=== PATIENT | male | born 1940 | race Caucasian/White ===

== ENCOUNTER 2016-07-26 10:17 | Inpatient (IN) | payer OTHER, MEDICARE ==
[2016-07-26] VITALS (13 sets, daily range): BP systolic 136–186; BP diastolic 63–106; PULSE 70–103; RESP 16–20; TEMP 97.6; O2SAT 72–96
[~2016-07-26] VITALS: Ht 165.1 cm; Wt 116.5 kg
[~2016-07-26 10:17] MED LIST: ENAL20TA81 PO; METO25 PO
--- NOTE | 2016-07-26 10:43 | PD ---
HPI Chief Complaint: Respiratory Symptoms Time Seen by Provider: 10:38 Travel History International Travel<30 days: No Contact w/Intl Traveler<30days: No Traveled to known affect area: No History of Present Illness HPI This 75-year-old male is complaining of dyspnea on exertion. He has been a smoker for many years. He denies any history of heart disease. He has had some swelling of his legs over the last few months. The last couple weeks he has had increasing dyspnea on exertion. He had a persistent cough which is nonproductive. He has a history of hypertension. He says the past week he's been having some chills at nighttime. PFSH Past Medical History Hypertension: Yes Social History Alcohol Use: Yes Tobacco Use: Yes Substance Use: Yes Allergies-Medications (Allergen,Severity, Reaction): Coded Allergies: No Known Allergies (Verified , 08/07/08) Reported Meds & Prescriptions Reported Meds & Active Scripts Active Lopressor (Metoprolol Tartrate) 25 Mg Tab 25 Mg PO DAILY 30 Days Reported Vasotec (Enalapril Maleate) 20 Mg Tab 20 Mg PO DAILY Review of Systems General / Constitutional: Positive: Chills, No: Fever Eyes: No: Diploplia HENT: No: Headaches Cardiovascular: Positive: Edema, No: Chest Pain or Discomfort, Palpitations Respiratory: Positive: Cough, Shortness of Breath Gastrointestinal: No: Vomiting, Diarrhea Genitourinary: No: Dysuria Musculoskeletal: No: Myalgias, Arthralgias Skin: No Rash Physical Exam Narrative GENERAL: Well-developed male. His pulse ox on arrival was 72 SKIN: Warm and dry. HEAD: Atraumatic. Normocephalic. EYES: Pupils equal and round. No scleral icterus. No injection or drainage. ENT: No nasal bleeding or discharge. Mucous membranes pink and moist. NECK: Trachea midline. No JVD. CARDIOVASCULAR: Regular rate and rhythm. No murmur appreciated. RESPIRATORY: There is bilateral expiratory wheezing anteriorly. Breath sounds are diminished posteriorly GASTROINTESTINAL: Abdomen soft, non-tender, nondistended. Hepatic and splenic margins not palpable. MUSCULOSKELETAL: No obvious deformities. No clubbing. No cyanosis. Bilateral pedal edema NEUROLOGICAL: Awake and alert. No obvious cranial nerve deficits. Motor grossly within normal limits. Normal speech. PSYCHIATRIC: Appropriate mood and affect; insight and judgment normal. Data Data Last Documented VS Vital Signs Date Time Temp Pulse Resp B/P Pulse Ox O2 Delivery O2 Flow Rate FiO2 07/26/16 10:49 95 Nasal Cannula 3.50 07/26/16 10:41 97.6 103 19 186/106 Orders Complete Blood Count With Diff (07/26/16 10:38) Comprehensive Metabolic Panel (07/26/16 10:38) B-Type Natriuretic Peptide (07/26/16 10:38) Troponin I (07/26/16 10:38) Urinalysis - C+S If Indicated (07/26/16 10:38) Influenzae A/B Antigen (07/26/16 10:38) Blood Culture (07/26/16 10:38) Iv Access Insert/Monitor (07/26/16 10:38) Electrocardiogram (07/26/16 10:38) Ecg Monitoring (07/26/16 10:38) Oximetry (07/26/16 10:38) Oxygen Administration (07/26/16 10:38) Chest, Single Ap (07/26/16 10:38) Sodium Chloride 0.9% Flush (Ns Flush) (07/26/16 10:45) Methylprednisolone So Succ Inj (Solumedr (07/26/16 10:45) Albuterol-Ipratropium Neb (Duoneb Neb) (07/26/16 10:45) Furosemide Inj (Lasix Inj) (07/26/16 11:15) Potassium Chloride (Kcl) (07/26/16 11:15) Admit Order (Ed Use Only) (07/26/16 11:48) Labs Laboratory Tests Test 07/26/16 10:36 White Blood Count 11.2 TH/MM3 Red Blood Count 5.08 MIL/MM3 Hemoglobin 15.8 GM/DL Hematocrit 48.3 % Mean Corpuscular Volume 95.1 FL Mean Corpuscular Hemoglobin 31.1 PG Mean Corpuscular Hemoglobin 32.8 % Concent Red Cell Distribution Width 15.8 % Platelet Count 251 TH/MM3 Mean Platelet Volume 8.7 FL Neutrophils (%) (Auto) 83.4 % Lymphocytes (%) (Auto) 5.8 % Monocytes (%) (Auto) 8.0 % Eosinophils (%) (Auto) 0.5 % Basophils (%) (Auto) 2.3 % Neutrophils # (Auto) 9.2 TH/MM3 Lymphocytes # (Auto) 0.7 TH/MM3 Monocytes # (Auto) 0.9 TH/MM3 Eosinophils # (Auto) 0.1 TH/MM3 Basophils # (Auto) 0.3 TH/MM3 CBC Comment DIFF FINAL Differential Comment Sodium Level 145 MEQ/L Potassium Level 3.7 MEQ/L Chloride Level 106 MEQ/L Carbon Dioxide Level 31.9 MEQ/L Anion Gap 7 MEQ/L Blood Urea Nitrogen 27 MG/DL Creatinine 1.50 MG/DL Estimat Glomerular Filtration 45 ML/MIN Rate Random Glucose 106 MG/DL Calcium Level 8.2 MG/DL Total Bilirubin 0.8 MG/DL Aspartate Amino Transf 20 U/L (AST/SGOT) Alanine Aminotransferase 21 U/L (ALT/SGPT) Alkaline Phosphatase 168 U/L Troponin I 0.13 NG/ML B-Type Natriuretic Peptide 477 PG/ML Total Protein 7.0 GM/DL Albumin 2.7 GM/DL [facility] Medical Decision Making Medical Screen Exam Complete: Yes Emergency Medical Condition: Yes Medical Record Reviewed: Yes Differential Diagnosis Differential includes COPD, CHF, pneumonia Narrative Course Chest x-ray shows enlarged heart with bilateral interstitial infiltrates consistent with CHF. His BNP is 477. Troponin is 0.13. EKG shows sinus arrhythmia. Patient on repeat questioning denies any chest pain. I suspect the elevation in troponin might be due to his renal insufficiency. He has been given Lasix and also treated for COPD. Diagnosis Primary Impression: Congestive heart failure Qualified Code: I50.9 - Acute congestive heart failure, unspecified congestive heart failure type Additional Impression: Hypoxia Admitting Information Admitting Physician Requests: Admit Ángel Wilson MD Jul 26, 2016 10:43
[2016-07-26] MEDS ORDERED: methylPREDNISolone SOD SUCC 125 MG/2 ML VIAL IVP ONE (10:45)
[2016-07-26] MEDS ORDERED: SODIUM CHLORIDE 0.9% FLUSH 5 ML FLUSH IVF PRN ×2 (10:45→12:30)
[2016-07-26] MEDS: RESP: ALBUTEROL 2.5 MG/IPRATROPIUM 0.5 MG NEB (SCH) INH (10:48)
[2016-07-26 11:00] LABS: AUTOMATED NEUTROPHIL # 9.2 TH/MM3 (1.8-7.7); BASOPHIL # 0.3 TH/MM3 (0-0.2); BASOPHIL % 2.3 % (0.0-2.0); CHLORIDE 106 MEQ/L (98-107); EOSINOPHIL # 0.1 TH/MM3 (0-0.4); EOSINOPHIL % 0.5 % (0.0-4.0); HEMATOCRIT 48.3 % (39.0-51.0); LYMPH % 5.8 % (9.0-44.0); LYMPHOCYTE # 0.7 TH/MM3 (1.0-4.8); MEAN CELL VOLUME 95.1 FL (80.0-100.0); MEAN CORPUSCULAR HEMOGLOBIN 31.1 PG (27.0-34.0); MEAN CORPUSCULAR HGB CONC 32.8 % (32.0-36.0); NEUT % 83.4 % (16.0-70.0); PLATELET COUNT 251 TH/MM3 (150-450); POTASSIUM 3.7 MEQ/L (3.5-5.1); RED BLOOD COUNT 5.08 MIL/MM3 (4.50-5.90); RED CELL DISTRIBUTION WIDTH 15.8 % (11.6-17.2); SODIUM (NA) 145 MEQ/L (136-145); WHITE BLOOD COUNT 11.2 TH/MM3 (4.0-11.0)
[2016-07-26 11:01] LABS: HEMO FLAGS DIFF FINAL
[2016-07-26 11:04] LABS: ANION GAP 7 MEQ/L (5-15); BICARBONATE 31.9 MEQ/L (21.0-32.0); BLOOD UREA NITROGEN 27 MG/DL (7-18)
[2016-07-26 11:07] LABS: ALT (GPT) 21 U/L (12-78); AST (GOT) 20 U/L (15-37)
[2016-07-26 11:08] LABS: GLOMERULAR FILTRATION RATE 45 ML/MIN (>89)
[2016-07-26 11:09] LABS: TOTAL BILIRUBIN ADULT 0.8 MG/DL (0.2-1.0)
[2016-07-26 11:10] LABS: ALKALINE PHOSPHATASE 168 U/L (45-117)
[2016-07-26] MEDS ORDERED: POTASSIUM CHLORIDE 20 MEQ CONTROLLED RELEASE TAB PO ONE (11:15)
[2016-07-26] MEDS ORDERED: FUROSEMIDE 40 MG/4 ML VIAL IV PUSH ONE (11:15)
--- NOTE | 2016-07-26 11:15 | RADHPO ---
EXAM DATE/TIME: 07/26/2016 11:00 [place] COMPARISON: No previous studies available for comparison. INDICATIONS : Short of breath and low O2 saturations. MEDICAL HISTORY : Hypertension. SURGICAL HISTORY : None. ENCOUNTER: Initial ACUITY: 3 days PAIN SCORE: 2/10 LOCATION: Bilateral chest FINDINGS: The heart size is enlarged. There is abnormal nodularity involving the right hilum. The lungs are significant for bilateral hazy basilar airspace densities. Pulmonary vasculature appear s prominent. CONCLUSION: Findings may represent congestive heart failure pulmonary edema with enlargement of t he pulmonary vessels. No prior exams are available for review. Consider further evaluation with CT to exclude hilar adenopathy. Cindi Mustafa MD on July 26, 2016 at 11:07 Board Certified Radiologist. This report was verified electronically.
[2016-07-26 12:07] LABS: BLOOD, URINE LARGE (NEG); GLUCOSE,URINE NEG (NEG); KETONE, URINE NEG (NEG); NITRITE,URINE NEG (NEG); PH, URINE 5.5 (5.0-8.5)
[2016-07-26 12:22] LABS: METHOD OF COLLECTION CLEAN CATCH; URINE COLOR YELLOW (YELLW/STRAW)
[2016-07-26 12:23] LABS: COMMENT (UR) CULT NOT INDICATED; CULTURE IF INDICATED CULT NOT INDICATED; SQUAMOUS EPITHELIAL CELL URINE 0-5 /hpf (0-5)
[2016-07-26] MEDS ORDERED: ENAL20TA PO (12:31)
[2016-07-26] MEDS ORDERED: RESP: ALBUTEROL 2.5 MG/IPRATROPIUM 0.5 MG NEB (PRN) NEB (14:30)
--- NOTE | 2016-07-26 14:30 | HHI.HP ---
cc: Fausto Grace MD [facility] Fausto Grace MD Admission Diagnosis CHF, HYPOXIA Diagnoses: Chief Complaint: hypoxemia Travel History International Travel<30 Days: No Contact w/Intl Traveler <30 Da: No Traveled to Known Affected Are: No History of Present Illness Patient's 75-year-old gentleman with a history of hypertension. He did note that his blood pressure had been up lately and he saw his primary care doctor today who promptly sent him to the emergency room for further evaluation of hypoxemia. Patient has been admitted all high 80s low 90s on room air and has progressively become more dyspneic. He only has a history of hypertension and has been taking lisinopril. He admits increasing lower extremity swelling over the last several weeks with increasing shortness of breath and dyspnea on exertion. He has orthopnea. Patient notes no fevers or chills and denies chest pain. Patient does have elevated troponin on arrival and denies any cardiac symptoms acutely. Patient this time is admitted into the hospital for further evaluation. He has urinated quite a bit with a single dose of Lasix. He is somewhat better with some bronchodilation and was given steroids treatment.. He denies any further cardiac history other than hypertension. He' s never seen a carriage feeder. Review of Systems Constitutional: COMPLAINS OF: Weight gain Endocrine: DENIES: Heat/cold intolerance, Polydipsia, Polyuria, Polyphagia Eyes: DENIES: Blurred vision, Diplopia, Eye inflammation, Eye pain, Vision loss , Photosensitivity, Double Vision Ears, nose, mouth, throat: DENIES: Tinnitus, Hearing loss, Vertigo, Nasal discharge, Oral lesions, Throat pain, Hoarseness, Ear Pain, Running Nose, Epistaxis, Sinus Pain, Toothache, Odynophagia Cardiovascular: COMPLAINS OF: Dyspnea on Exertion, Lower Extremity Edema, Orthopnea, DENIES: Chest pain, Palpitations, Syncope, PND, Claudication Gastrointestinal: DENIES: Abdominal pain, Black stools, Bloody stools, Constipation, Diarrhea, Nausea, Vomiting, Difficulty Swallowing, Anorexia Genitourinary: DENIES: Sexual dysfunction, Urinary frequency, Urinary incontinence, Urgency, Hematuria, Dysuria, Nocturia, Penile Discharge, Testicular Pain, Testicular Swelling Musculoskeletal: DENIES: Joint pain, Muscle aches, Stiffness, Joint Swelling, Back pain, Neck pain Integumentary: DENIES: Abnormal pigmentation, Nail changes, Pruritus, Rash Hematologic/lymphatic: DENIES: Bruising, Lymphadenopathy Immunologic/allergic: DENIES: Eczema, Urticaria Neurologic: DENIES: Abnormal gait, Headache, Localized weakness, Paresthesias, Seizures, Speech Problems, Tremor, Poor Balance Psychiatric: DENIES: Anxiety, Confusion, Mood changes, Depression, Hallucinations, Agitation, Suicidal Ideation, Homicidal Ideation, Delusions Past Family Social History Past Medical History HTN Past Surgical History None Reported Medications Only BP med Allergies: Coded Allergies: No Known Allergies (Verified , 07/26/16) Active Ordered Medications Reviewed in the EMR Family History Mother from breast cancer in her 60s, father from a stroke in his 60s Social History Patient does smoke at least a pack per day, occasional alcohol, lives with his Physical Exam Vital Signs Vital Signs Date Time Temp Pulse Resp B/P Pulse Ox O2 Delivery O2 Flow Rate FiO2 07/26/16 13:48 90 6 07/26/16 13:47 98 18 182/79 88 Nasal Cannula 4 07/26/16 12:59 84 18 136/63 90 Nasal Cannula 4 07/26/16 10:49 95 Nasal Cannula 3.50 07/26/16 10:49 94 Nasal Cannula 4 07/26/16 10:41 97.6 103 19 186/106 72 07/26/16 10:35 94 Nasal Cannula 4 Physical Exam GENERAL: This is a well-nourished, well-developed patient, in no apparent distress. SKIN: No rashes, ecchymoses or lesions. Cool and dry. HEAD: Atraumatic. Normocephalic. No temporal or scalp tenderness. EYES: Pupils equal round and reactive. Extraocular motions intact. No scleral icterus. No injection or drainage. ENT: Nose without bleeding, purulent drainage or septal hematoma. Throat without erythema, tonsillar hypertrophy or exudate. Uvula midline. Airway patent. NECK: Trachea midline. No JVD or lymphadenopathy. Supple, nontender, no meningeal signs. CARDIOVASCULAR: Regular rate and rhythm without murmurs, gallops, or rubs. RESPIRATORY:crackles at bilat bases. Breath sounds equal bilaterally. No wheezes , rales, or rhonchi. GASTROINTESTINAL: Abdomen soft, non-tender, nondistended. No hepato-splenomegaly , or palpable masses. No guarding. MUSCULOSKELETAL: Extremities without clubbing, cyanosis, there is +3 leg edema. No joint tenderness, effusion, or edema noted. No calf tenderness. Negative Homans sign bilaterally. NEUROLOGICAL: Awake and alert. Cranial nerves II through XII intact. Motor and sensory grossly within normal limits. Five out of 5 muscle strength in all muscle groups. Normal speech. Laboratory Laboratory Tests Test 07/26/16 07/26/16 10:36 12:00 White Blood Count 11.2 Red Blood Count 5.08 Hemoglobin 15.8 Hematocrit 48.3 Mean Corpuscular Volume 95.1 Mean Corpuscular Hemoglobin 31.1 Mean Corpuscular Hemoglobin 32.8 Concent Red Cell Distribution Width 15.8 Platelet Count 251 Mean Platelet Volume 8.7 Neutrophils (%) (Auto) 83.4 Lymphocytes (%) (Auto) 5.8 Monocytes (%) (Auto) 8.0 Eosinophils (%) (Auto) 0.5 Basophils (%) (Auto) 2.3 Neutrophils # (Auto) 9.2 Lymphocytes # (Auto) 0.7 Monocytes # (Auto) 0.9 Eosinophils # (Auto) 0.1 Basophils # (Auto) 0.3 CBC Comment DIFF FINAL Differential Comment Sodium Level 145 Potassium Level 3.7 Chloride Level 106 Carbon Dioxide Level 31.9 Anion Gap 7 Blood Urea Nitrogen 27 Creatinine 1.50 Estimat Glomerular Filtration 45 Rate Random Glucose 106 Calcium Level 8.2 Total Bilirubin 0.8 Aspartate Amino Transf 20 (AST/SGOT) Alanine Aminotransferase 21 (ALT/SGPT) Alkaline Phosphatase 168 Troponin I 0.13 B-Type Natriuretic Peptide 477 Total Protein 7.0 Albumin 2.7 Urine Collection Type CLEAN CATCH Urine Color YELLOW Urine Turbidity CLEAR Urine pH 5.5 Urine Specific [place] 1.013 Urine Protein NEG Urine Glucose (UA) NEG Urine Ketones NEG Urine Occult Blood LARGE Urine Nitrite NEG Urine Bilirubin NEG Urine Leukocyte Esterase NEG Urine RBC 25-49 Urine WBC 3-5 Urine Squamous Epithelial 0-5 Cells Microscopic Urinalysis Comment CULT NOT INDICATED Urine Collection Time 12:00 Date/Time Procedure Status Source Growth 07/26/16 11:22 Aerobic Blood Culture Received Blood Peripheral Pending 07/26/16 11:22 Anaerobic Blood Culture Received Blood Peripheral Pending 07/26/16 10:20 Influenza Types A,B Antigen (JESS) - Final Complete Nasal Washing NEGATIVE FOR FLU A AND B ANTIGEN.... Result Diagram: 07/26/16 1036 07/26/16 1036 Imaging Last Impressions Chest X-Ray 07/26/16 1038 Signed Impressions: Service Date/Time: July 11:00 - CONCLUSION: Findings may represent congestive heart failure pulmonary edema with enlargement of the pulmonary vessels. No prior exams are available for review. Consider further evaluation with CT to exclude hilar adenopathy. Cindi Mustafa MD Assessment and Plan Problem List: (1) Congestive heart failure ICD Code: I50.9 Status: Acute Plan: New onset Cont ACEi, add BB Add LMWH (2) HTN (hypertension) ICD Code: I10 Status: Acute Plan: Uncontrolled, Cont Lisinopril and add Coreg Echo Pending (3) Hypoxia ICD Code: R09.02 Status: Acute Plan: Rule out COPD exacerbation Continue bronchodilators and steroids Continue to follow for blood gas and oxygenation Assessment and Plan LMWH Code Status Full Code Discussed Condition With Patient, ER MD and spouse Physician Certification 2 Midnight Certification Type: Admission for Inpatient Services Order for Inpatient Services The services are ordered in accordance with Medicare regulations or non- Medicare payer requirements, as applicable. In the case of services not specified as inpatient-only, they are appropriately provided as inpatient services in accordance with the 2-midnight benchmark. Estimated LOS (days): 3 3 days is the estimated time the patient will need to remain in the hospital, assuming treatment plan goals are met and no additional complications. Post-Hospital Plan: Home Problem Qualifiers (1) Congestive heart failure: Qualified Code: I50.9 - Acute congestive heart failure, unspecified congestive heart failure type Rocio Mai MD Jul 26, 2016 14:30
[2016-07-26 14:53] LABS: BLOOD GAS BASE EXCESS 6.4 mmol/L (-2-2); BLOOD GAS CARBOXYHEMOGLOBIN 5.7 % (0-4); BLOOD GAS HCO3 31 mmol/L (22-26); BLOOD GAS O2 HGB SATURATION 86 % (90-100); BLOOD GAS OXYGEN CONTENT 18.5 Vol % (12.0-20.0); BLOOD GAS PCO2 55 mmHG (38-42); BLOOD GAS PO2 69 mmHG (61-120); BLOOD GAS TOTAL HGB 15.3 G/DL (12.0-16.0); CRITICAL VALUE YES; TEMP CORR TO 98.6
[2016-07-26 14:54] LABS: DRAW SITE LT RADIAL; LITER FLOW 5.5 L/M; NUMBER OF ARTERIAL PUNCTURES 1; OXYGEN DEVICE NASAL CANNULA; STAT NO; ULNAR PULSE PRESENT
[2016-07-26] MEDS: CARVEDILOL 6.25 MG TAB PO SCH ×2 (15:53→21:00)
[2016-07-26] MEDS: NICOTINE 14 MG/24 HR PATCH TD SCH (15:53)
[2016-07-26] MEDS: ENOXAPARIN SODIUM 40 MG/0.4 ML SYRINGE SQ SCH (15:54)
[2016-07-26] MEDS: BUMETANIDE INJ 1 MG/4 ML VIAL IV PUSH SCH (17:58)
[2016-07-26] MEDS: RESP: ALBUTEROL 2.5 MG/IPRATROPIUM 0.5 MG NEB (SCH) NEB (19:17)
[2016-07-26] MEDS: methylPREDNISolone SOD SUCC 40 MG/1 ML VIAL IV PUSH SCH (21:30)
[2016-07-26] MEDS: SODIUM CHLORIDE 0.9% FLUSH 5 ML FLUSH IVF SCH (21:30)
[2016-07-27] VITALS (18 sets, daily range): BP systolic 112–158; BP diastolic 59–84; PULSE 71–86; RESP 15–24; TEMP 96.8–97.8; O2SAT 88–98
[2016-07-27 06:10] LABS: BLOOD GAS BASE EXCESS 6.2 mmol/L (-2-2); BLOOD GAS CARBOXYHEMOGLOBIN 3.3 % (0-4); BLOOD GAS HCO3 32 mmol/L (22-26); BLOOD GAS OXYGEN CONTENT 18.2 Vol % (12.0-20.0); BLOOD GAS PCO2 67 mmHG (38-42); BLOOD GAS PO2 68 mmHG (61-120); BLOOD GAS TOTAL HGB 14.8 G/DL (12.0-16.0); TEMP CORR TO 98.6
[2016-07-27 06:11] LABS: BLOOD GAS O2 HGB SATURATION 87 % (90-100); CRITICAL VALUE YES; DRAW SITE RT RADIAL; LITER FLOW 4 L/M; NUMBER OF ARTERIAL PUNCTURES 1; OXYGEN DEVICE NASAL CANNULA; STAT NO; ULNAR PULSE Y
[2016-07-27 06:15] LABS: CHLORIDE 105 MEQ/L (98-107); POTASSIUM 4.5 MEQ/L (3.5-5.1); SODIUM (NA) 144 MEQ/L (136-145)
[2016-07-27 06:18] LABS: ANION GAP 5 MEQ/L (5-15); BICARBONATE 34.1 MEQ/L (21.0-32.0); BLOOD UREA NITROGEN 28 MG/DL (7-18)
[2016-07-27 06:21] LABS: ALT (GPT) 17 U/L (12-78); AST (GOT) 10 U/L (15-37)
[2016-07-27 06:22] LABS: GLOMERULAR FILTRATION RATE 49 ML/MIN (>89)
[2016-07-27 06:23] LABS: TOTAL BILIRUBIN ADULT 0.6 MG/DL (0.2-1.0)
[2016-07-27 06:24] LABS: ALKALINE PHOSPHATASE 131 U/L (45-117)
[2016-07-27] MEDS: RESP: ALBUTEROL 2.5 MG/IPRATROPIUM 0.5 MG NEB (SCH) NEB ×3 (07:29→19:26)
[2016-07-27] MEDS: methylPREDNISolone SOD SUCC 40 MG/1 ML VIAL IV PUSH SCH ×2 (09:33→20:25)
[2016-07-27] MEDS: ENALAPRIL MALEATE 10 MG TAB PO SCH (09:33)
[2016-07-27] MEDS: CARVEDILOL 6.25 MG TAB PO SCH ×2 (09:34→20:24)
[2016-07-27] MEDS: NICOTINE 14 MG/24 HR PATCH TD SCH (09:35)
[2016-07-27] MEDS: BUMETANIDE INJ 1 MG/4 ML VIAL IV PUSH SCH ×2 (10:10→16:07)
[2016-07-27] MEDS: SODIUM CHLORIDE 0.9% FLUSH 5 ML FLUSH IVF SCH ×2 (10:10→20:25)
--- NOTE | 2016-07-27 12:49 | HHI.PR ---
Subjective Remarks Patient seen and evaluated today in follow-up for CHF and COPD exacerbation. Patient doing well on BiPAP clinically however he ABG shows significant CO2 retention and hypoxemia; this was on O2 nasal cannula Edema is better. Patient denies any shortness of breath or chest discomfort. Objective Vitals Vital Signs Date Time Temp Pulse Resp B/P Pulse Ox O2 Delivery O2 Flow Rate FiO2 07/27/16 12:00 96.8 74 24 153/84 94 07/27/16 11:00 70 16 147/70 98 Partial Rebreather 10 07/27/16 10:55 98 Partial Rebreather 10 07/27/16 10:15 78 18 94 Nasal Cannula 6 40 07/27/16 10:15 74 16 144/77 91 Nasal Cannula 7 07/27/16 10:06 94 Nasal Cannula 6 07/27/16 09:15 80 16 119/65 98 BiPAP 07/27/16 09:15 81 16 96 BiPAP 4 40 07/27/16 08:10 74 16 119/65 98 BiPAP 40 07/27/16 07:29 94 40 07/27/16 07:15 72 16 96 BiPAP 40 07/27/16 07:15 97.8 72 16 132/59 96 BiPAP 40 07/27/16 06:15 93 40 07/27/16 06:00 88 Nasal Cannula 4 07/27/16 05:05 Nasal Cannula 3 40 07/27/16 05:05 81 20 140/84 93 Nasal Cannula 3 07/27/16 03:00 94 Nasal Cannula 3.00 07/27/16 03:00 78 18 112/74 96 Nasal Cannula 3 07/27/16 01:20 96 40 07/27/16 01:07 BiPAP 6 45 07/27/16 01:07 74 15 158/69 96 BiPAP 07/26/16 22:05 94 45 07/26/16 22:00 81 17 161/90 95 BiPAP 07/26/16 20:56 78 16 141/72 96 BiPAP 45 07/26/16 20:56 96 BiPAP 45 07/26/16 19:16 95 45 07/26/16 19:15 96 BiPAP 45 07/26/16 19:05 76 16 143/77 95 BiPAP 45 07/26/16 17:17 70 20 155/74 92 BiPAP 07/26/16 16:04 94 40 07/26/16 16:02 94 18 180/94 90 07/26/16 15:11 95 Nasal Cannula 6 07/26/16 13:48 90 6 07/26/16 13:47 98 18 182/79 88 Nasal Cannula 4 07/26/16 12:59 84 18 136/63 90 Nasal Cannula 4 I/O 07/26/16 07/26/16 07/26/16 07/27/16 07/27/16 07/27/16 07:00 15:00 23:00 07:00 15:00 23:00 Intake Total 240 ml 240 ml Output Total 1175 ml 825 ml 250 ml 200 ml Balance -1175 ml -825 ml -10 ml 40 ml Intake Oral 240 ml 240 ml Output Urine Total 1175 ml 825 ml 250 ml 200 ml # Voids 3 2 Result Diagram: 07/26/16 1036 07/27/16 0600 Imaging Last Impressions Chest X-Ray 07/26/16 1038 Signed Impressions: Service Date/Time: July 11:00 - CONCLUSION: Findings may represent congestive heart failure pulmonary edema with enlargement of the pulmonary vessels. No prior exams are available for review. Consider further evaluation with CT to exclude hilar adenopathy. Cindi Mustafa MD Objective Remarks GENERAL: This is a well-nourished, well-developed patient, in no apparent distress. CARDIOVASCULAR: Regular rate and rhythm without murmurs, gallops, or rubs. RESPIRATORY: Clear to auscultation. Breath sounds equal bilaterally. No wheezes , rales, or rhonchi. GASTROINTESTINAL: Abdomen soft, non-tender, nondistended. Normal active bowel sounds MUSCULOSKELETAL: Extremities without clubbing, cyanosis, there is +1-2 edema in lower extremities NEURO: Alert & Oriented x4 to person, place, time, situation. Moves all ext x4 A/P Problem List: (1) Congestive heart failure ICD Code: I50.9 Status: Acute Plan: New onset Cont ACEi, BB 2250 mL out Follow-up echocardiogram LMWH (2) HTN (hypertension) ICD Code: I10 Status: Acute Plan: improved, Cont Lisinopril and add Coreg Echo Pending (3) Hypoxia ICD Code: R09.02 Status: Acute Plan: Rule out COPD exacerbation Continue bronchodilators and steroids Continue to follow for blood gas and oxygenation BiPap for CO2 retention Problem Qualifiers (1) Congestive heart failure: Qualified Code: I50.9 - Acute congestive heart failure, unspecified congestive heart failure type Rocio Mai MD Jul 27, 2016 12:49
--- NOTE | 2016-07-27 14:35 | EC ---
Study Study Date:07/27/2016 STUDY CONCLUSIONS SUMMARY - Left ventricle: The cavity size was normal. Wall thickness was increased in a pattern of moderate LVH. Systolic function was normal. The estimated ejection fraction was 55%. Wall motion was normal; there were no regional wall motion abnormalities. - Mitral valve: Mild regurgitation. - Left atrium: The atrium was mildly dilated. - Tricuspid valve: Mild regurgitation. - Pulmonary arteries: Systolic pressure was mildly increased. PA peak pressure: 46mm Hg (S). If LV function is below 40, please consider prescribing an ACEI or ARB or document rationale for non-use. PROCEDURE DATA STUDY STATUS: Elective. Procedure: Transthoracic echocardiography. Image quality was good. Scanning was performed from the parasternal, apical, and subcostal acoustic windows. Study completion: The patient tolerated the procedure well. Transthoracic echocardiography. M-mode, complete 2D, complete spectral Doppler, and color Doppler. Patient status: Inpatient. CARDIAC ANATOMY LEFT VENTRICLE: The cavity size was normal. Wall thickness was increased in a pattern of moderate LVH. Systolic function was normal. The estimated ejection fraction was 55%. Wall motion was normal; there were no regional wall motion abnormalities. AORTIC VALVE: Trileaflet; normal thickness leaflets. Doppler: Transvalvular velocity was within the normal range. There was no stenosis. No regurgitation. Valve area: 1.13cm^2(VTI). Valve area: 0.97cm^2 (Vmax). Mean gradient: 12mm Hg (S). Peak gradient: 22mm Hg (S). AORTA: Aortic root: The aortic root was normal in size. MITRAL VALVE: Structurally normal valve. Doppler: Transvalvular velocity was within the normal range. There was no evidence for stenosis. Mild regurgitation. LEFT ATRIUM: The atrium was mildly dilated. RIGHT VENTRICLE: The cavity size was normal. Wall thickness was normal. PULMONIC VALVE: Doppler: Transvalvular velocity was within the normal range. There was no evidence for stenosis. No regurgitation. TRICUSPID VALVE: Structurally normal valve. Doppler: Transvalvular velocity was within the normal range. Mild regurgitation. PULMONARY ARTERY: The main pulmonary artery was normal-sized. Systolic pressure was mildly increased. RIGHT ATRIUM: The atrium was normal in size. PERICARDIUM: There was no pericardial effusion. SYSTEMIC VEINS: Inferior vena cava: The vessel was normal in size. BASIC MEASUREMENTS ADULT Normal Left ventricle LV internal dimension, ED, chordal level, 45.5 mm 43-52 PLAX LV internal dimension, ES, chordal level, 35 mm 23-38 PLAX Fractional shortening, chordal level, PLAX *23 % >29 LV posterior wall thickness, ED 16.2 mm IVS/LVPW ratio, ED 1.18 <1.3 Ventricular septum Septal thickness, ED 19.1 mm Aortic valve Leaflet separation *12 mm 15-26 Right ventricle RV internal dimension, ED, PLAX *38.7 mm 19-38 BASIC MEASUREMENTS ADULT Normal Aortic valve Leaflet separation *12 mm 15-26 Aorta Root diameter, ED 35 mm 20-37 Left atrium Anterior-posterior dimension, ES *47 mm 19-40 LA/aortic root ratio 1.34 DOPPLER MEASUREMENTS ADULT Normal Main pulmonary artery Pressure, S *46 mm Hg =30 Aortic valve Peak velocity, S 237 cm/s Mean velocity, S 163 cm/s VTI, S 41.8 cm Mean gradient, S 12 mm Hg Peak gradient, S 22 mm Hg Valve area, VTI 1.13 cm^2 Valve area, Vmax 0.97 cm^2 Tricuspid valve Regurgitant peak velocity 300 cm/s Peak RV-RA gradient, S 36 mm Hg Maximal regurgitant velocity 300 cm/s Systemic veins Estimated CVP 10 mm Hg Right ventricle RV pressure, S *46 mm Hg <30 LEGEND: Mean values are shown as u=mean value. Asterisk (*) araiza values outside specified normal range. Prepared and signed by Edgardo Cobos [id number]
[2016-07-27] MEDS: ENOXAPARIN SODIUM 40 MG/0.4 ML SYRINGE SQ SCH (16:07)
--- NOTE | 2016-07-27 16:58 | EKG ---
Date Performed: 07/26/2016 Time Performed: 10:41:16 PTAGE: 75 years EKG: Sinus arrhythmia Short SC interval Left axis deviation Inferior infarct - age undetermined Possible anterior infarct - age undetermined Abnormal ECG NO PREVIOUS TRACING DOCTOR: Kiko Bustos Interpretating Date/Time 07/27/2016 16:56:16
[2016-07-28] VITALS (10 sets, daily range): BP systolic 101–150; BP diastolic 60–86; PULSE 66–82; RESP 16–22; TEMP 96.2–97.7; O2SAT 92–97
[2016-07-28 06:11] LABS: BLOOD GAS BASE EXCESS 9.2 mmol/L (-2-2); BLOOD GAS CARBOXYHEMOGLOBIN 2.5 % (0-4); BLOOD GAS HCO3 35 mmol/L (22-26); BLOOD GAS O2 HGB SATURATION 91 % (90-100); BLOOD GAS OXYGEN CONTENT 18.8 Vol % (12.0-20.0); BLOOD GAS PCO2 68 mmHG (38-42); BLOOD GAS PO2 79 mmHG (61-120); BLOOD GAS TOTAL HGB 14.7 G/DL (12.0-16.0); CRITICAL VALUE YES; OXYGEN DEVICE BIPAP; TEMP CORR TO 98.6; VENT SETTINGS IPAP10/EPAP5
[2016-07-28 06:12] LABS: DRAW SITE RT RADIAL; FIO2 40 %; NUMBER OF ARTERIAL PUNCTURES 1; STAT NO; ULNAR PULSE Y
[2016-07-28] MEDS: RESP: ALBUTEROL 2.5 MG/IPRATROPIUM 0.5 MG NEB (SCH) NEB ×3 (07:25→19:00)
[2016-07-28] MEDS ORDERED: INFLUENZA VIRUS VACCINE (QUADRIVALENT) 0.5 ML SYR IM ONE (10:00)
[2016-07-28] MEDS ORDERED: PNEUMOCOCCAL POLYVALENT INJ 25 MCG/0.5 ML SYR IM ONE (10:00)
[2016-07-28] MEDS: CARVEDILOL 6.25 MG TAB PO SCH ×2 (10:09→20:35)
[2016-07-28] MEDS: ENALAPRIL MALEATE 10 MG TAB PO SCH (10:09)
[2016-07-28] MEDS: methylPREDNISolone SOD SUCC 40 MG/1 ML VIAL IV PUSH SCH (10:10)
[2016-07-28] MEDS: BUMETANIDE INJ 1 MG/4 ML VIAL IV PUSH SCH (10:10)
[2016-07-28] MEDS: SODIUM CHLORIDE 0.9% FLUSH 5 ML FLUSH IVF SCH ×2 (10:10→20:35)
[2016-07-28] MEDS: NICOTINE 14 MG/24 HR PATCH TD SCH (10:11)
--- NOTE | 2016-07-28 10:44 | HHI.PR ---
Subjective Remarks Patient seen today in follow-up for COPD and right sided heart failure exacerbation. Doing better. Rest or status appears stable. Blood gas showed some CO2 retention. Overall patient heart rate is well-controlled blood pressures improved. Tolerating steroids well Objective Vitals Vital Signs Date Time Temp Pulse Resp B/P Pulse Ox O2 Delivery O2 Flow Rate FiO2 07/28/16 07:25 93 Nasal Cannula 6.00 07/28/16 07:00 96.9 82 20 135/65 95 07/28/16 04:00 97.0 66 16 130/86 92 07/28/16 02:20 94 40 07/28/16 01:39 97.7 70 16 141/60 93 07/27/16 23:00 93 40 07/27/16 20:03 97.4 86 22 155/78 90 07/27/16 19:26 91 Nasal Cannula 6.00 07/27/16 16:00 97.4 84 22 134/76 90 07/27/16 14:12 92 Nasal Cannula 6.00 07/27/16 12:00 96.8 74 24 153/84 94 07/27/16 11:00 70 16 147/70 98 Partial Rebreather 10 07/27/16 11:00 71 07/27/16 10:55 98 Partial Rebreather 10 I/O 07/27/16 07/27/16 07/27/16 07/28/16 07/28/16 07/28/16 07:00 15:00 23:00 07:00 15:00 23:00 Intake Total 240 ml 890 ml Output Total 250 ml 1000 ml 300 ml Balance -10 ml -110 ml -300 ml Intake Oral 240 ml 890 ml Output Urine Total 250 ml 1000 ml 300 ml # Voids 0 # Bowel Movements 1 Result Diagram: 07/26/16 1036 07/27/16 0600 Objective Remarks GENERAL: This is a well-nourished, well-developed patient, in no apparent distress. CARDIOVASCULAR: Regular rate and rhythm without murmurs, gallops, or rubs. RESPIRATORY: Clear to auscultation. Breath sounds equal bilaterally. No wheezes , rales, or rhonchi. GASTROINTESTINAL: Abdomen soft, non-tender, nondistended. Normal active bowel sounds MUSCULOSKELETAL: Extremities without clubbing, cyanosis, there is +1-2 edema in lower extremities NEURO: Alert & Oriented x4 to person, place, time, situation. Moves all ext x4 A/P Problem List: (1) Congestive heart failure ICD Code: I50.9 Status: Acute Plan: New onset of acute exacerbation of diastolic heart failure Cont ACEi, BB (2) HTN (hypertension) ICD Code: I10 Status: Acute Plan: improved, Cont Lisinopril and Coreg Echo shows right sided heart failure (3) Hypoxia ICD Code: R09.02 Status: Acute Plan: Likely related to COPD exacerbation with CHF exacerbation Continue oxygen, bronchodilators, wean steroids, BiPAP as needed Patient education (4) Elevated troponin ICD Code: R79.89 Status: Acute Plan: Likely related to congestive heart failure, not a NSTEMI will need further follow-up with his primary care doctor outpatient referral to cardiology Continue management for CHF Assessment and Plan LMWH dvt PPX Discharge Planning likely 07/30 pending o2 needs may need O2 Problem Qualifiers (1) Congestive heart failure: Qualified Code: I50.9 - Acute congestive heart failure, unspecified congestive heart failure type Rocio Mai MD Jul 28, 2016 10:44
[2016-07-28] MEDS: ENOXAPARIN SODIUM 40 MG/0.4 ML SYRINGE SQ SCH (17:17)
[2016-07-28] MEDS: predniSONE 20 MG TAB PO SCH (20:35)
[2016-07-29] VITALS (11 sets, daily range): BP systolic 121–156; BP diastolic 64–88; PULSE 70–77; RESP 18–19; TEMP 96.4–98.3; O2SAT 88–98
[2016-07-29 07:46] LABS: HEMATOCRIT 48.4 % (39.0-51.0); MEAN CELL VOLUME 96.4 FL (80.0-100.0); MEAN CORPUSCULAR HEMOGLOBIN 30.9 PG (27.0-34.0); MEAN CORPUSCULAR HGB CONC 32.1 % (32.0-36.0); PLATELET COUNT 245 TH/MM3 (150-450); RED BLOOD COUNT 5.02 MIL/MM3 (4.50-5.90); RED CELL DISTRIBUTION WIDTH 15.7 % (11.6-17.2); REVIEW FLAG FINAL; WHITE BLOOD COUNT 10.1 TH/MM3 (4.0-11.0)
[2016-07-29 08:02] LABS: BICARBONATE 41.4 MEQ/L (21.0-32.0)
[2016-07-29] MEDS ORDERED: BUMETANIDE 1 MG TAB PO SCH (09:00)
[2016-07-29] MEDS: RESP: ALBUTEROL 2.5 MG/IPRATROPIUM 0.5 MG NEB (SCH) NEB ×3 (09:22→20:06)
--- NOTE | 2016-07-29 09:31 | HHI.PR ---
Subjective Remarks Follow-up for CHF and COPD exacerbation with respiratory failure. He states he had a cold before he came into the hospital but denies any cough or sputum production currently. He denies any fevers. States his leg swelling is improved. Objective Vitals Vital Signs Date Time Temp Pulse Resp B/P Pulse Ox O2 Delivery O2 Flow Rate FiO2 07/29/16 09:23 93 Nasal Cannula 6.00 07/29/16 08:00 70 18 139/77 95 07/29/16 06:27 Nasal Cannula 6.00 07/29/16 03:51 95 40 07/29/16 01:34 98 40 07/29/16 00:00 97.0 70 18 156/88 98 07/28/16 23:10 94 40 07/28/16 20:03 96.4 71 22 135/77 92 07/28/16 19:00 93 Nasal Cannula 6.00 07/28/16 16:00 97.0 72 20 150/79 95 07/28/16 12:00 96.2 72 20 138/72 92 I/O 07/28/16 07/28/16 07/28/16 07/29/16 07/29/16 07/29/16 07:00 15:00 23:00 07:00 15:00 23:00 Intake Total 400 ml Output Total 300 ml 125 ml 250 ml Balance -300 ml 275 ml -250 ml Intake Oral 400 ml Output Urine Total 300 ml 125 ml 250 ml # Voids 0 # Bowel Movements 0 Result Diagram: 07/29/16 0632 07/29/16 0632 Imaging Last Impressions Chest X-Ray 07/26/16 1038 Signed Impressions: Service Date/Time: July 11:00 - CONCLUSION: Findings may represent congestive heart failure pulmonary edema with enlargement of the pulmonary vessels. No prior exams are available for review. Consider further evaluation with CT to exclude hilar adenopathy. Cindi Mustafa MD Objective Remarks GENERAL: Well-nourished, well-developed patient in no apparent distress SKIN: Warm and dry. CARDIOVASCULAR: Regular rate and rhythm. RESPIRATORY: 6L O2 via nasal cannula. Mild inspiratory and expiratory wheezing throughout. No rales. GASTROINTESTINAL: Normoactive bowel sounds. Abdomen soft, non-tender, nondistended. MUSCULOSKELETAL: Pitting edema bilateral lower extremities. NEUROLOGICAL: Awake and alert. Motor grossly within normal limits. Normal speech. PSYCHIATRIC: Appropriate mood and affect; insight and judgment normal. Urinary Catheter: No Vascular Central Line Catheter: No A/P Problem List: (1) Congestive heart failure ICD Code: I50.9 Status: Acute (2) HTN (hypertension) ICD Code: I10 Status: Acute (3) Acute respiratory failure ICD Code: J96.00 Status: Acute (4) COPD exacerbation ICD Code: J44.1 Status: Acute (5) Elevated troponin ICD Code: R79.89 Status: Acute (6) Renal failure ICD Code: N19 Status: Acute Assessment and Plan (1) Congestive heart failure New onset of acute exacerbation of diastolic heart failure Echo with EF of 55% with moderate LVH. Mild mitral and tricuspid regurgitation. Left atrium mildly dilated. PA peak pressure elevated at 46 mmHg. Cont ACEi, BB, Bumex (2) HTN (hypertension) Improved, Cont Lisinopril and Coreg Echo shows right sided heart failure (3) Acute Respiratory failure/COPD exacerbation Hypoxia ABG 07/28 still indicates increased CO2 retention but hypoxemia improved. Likely related to COPD exacerbation with CHF exacerbation Continue oxygen, bronchodilators, currently on po steroids (s/p IV steroid). Currently on 6L via NC.BiPAP as needed Patient education (4) Elevated troponin Likely related to congestive heart failure, not an NSTEMI Will need further follow-up with his primary care doctor and outpatient referral to cardiology Continue management for CHF (5) Renal failure BUN/Cr 27/1.5 initially with no prior records for comparison. Creatinine improved 1.3, but now has pre-renal azotemia with BUN elevated at 43 likely from heavy diuretic use. Monitor BMP but likely will need to continue diuretic and LAURA due to CHF. DVT PPx: Lovenox Discharge Planning Possibly tomorrow pending O2 needs. Attending Statement The exam, history, and the medical decision-making described in the above note were completed with my assistance as the dictating practitioner. I attest that I had a [id number] encounter with the patient on the same day, and personally performed all of the history, exam, or medical decision making. I reviewed and agree with the plan. Patient seen in room with family. Overall treatment plan discussed with him as soon 6 L O2. cario/pulm consult pending. Patient likely with right heart failure from underlying COPD. may need cath Continue steroids, bronchodilators Problem Qualifiers (1) Congestive heart failure: Qualified Code: I50.9 - Acute congestive heart failure, unspecified congestive heart failure type [place] Jul 29, 2016 09:31 Rocio Mai MD Jul 29, 2016 14:21
[2016-07-29] MEDS: SODIUM CHLORIDE 0.9% FLUSH 5 ML FLUSH IVF SCH ×2 (10:09→21:50)
[2016-07-29] MEDS: ENALAPRIL MALEATE 10 MG TAB PO SCH (10:10)
[2016-07-29] MEDS: CARVEDILOL 6.25 MG TAB PO SCH ×2 (10:10→21:52)
[2016-07-29] MEDS: predniSONE 20 MG TAB PO SCH (10:10)
[2016-07-29] MEDS: NICOTINE 14 MG/24 HR PATCH TD SCH (10:10)
--- NOTE | 2016-07-29 16:20 | RADHPO ---
EXAM DATE/TIME: 07/29/2016 15:29 [facility] COMPARISON: CHEST SINGLE AP, July 26, 2016, 11:00. INDICATIONS : Short of breath MEDICAL HISTORY : Chronic obstructive pulmonary disease. Congestive heart failure. SURGICAL HISTORY : None. ENCOUNTER: Subsequent ACUITY: 1 month PAIN SCORE: 0/10 LOCATION: Bilateral chest FINDINGS: There are patchy areas of interstitial prominence in the mid and lower lungs bilaterally, similar to prior chest x-ray. The right hilum is prominent, suggesting an enlarged pulmonary artery. No focal areas of consolidation. The hemidiaphragms remain fairly well delineated. There is some minimal lizet nting of the costophrenic angle the right side suggesting possible pleural effusion. The heart is up per limits normal size. Moderate degenerative changes in the thoracic spine. CONCLUSION: Persistent patchy interstitial infiltrates mid and lower lungs and possible new small right pleural e ffusion. Pedro Perez MD on July 29, 2016 at 16:17 Board Certified Radiologist. This report was verified electronically.
[2016-07-29] MEDS: ENOXAPARIN SODIUM 40 MG/0.4 ML SYRINGE SQ SCH (16:22)
[2016-07-29] MEDS: LEVOFLOXACIN 750 MG PREMIX INJ 150 ML IV SCH (18:00)
--- NOTE | 2016-07-29 20:12 | MB ---
cc: CHINO HARDY DATE OF CONSULTATION 07/29/2016 REASON FOR CONSULTATION Chronic obstructive pulmonary disease. HISTORY OF THE PRESENT ILLNESS This is a 75-hour-old white male with a history of hypertension and history of chronic leg edema was seen in the emergency room since his primary physician sent him for evaluation of hypoxia. The patient apparently has been short of breath over the past 2-3 weeks and has been on lisinopril but denied any significant wheezing or cough but had dyspnea and orthopnea. Upon arrival in the ER he had a chest x-ray which showed patchy interstitial infiltrates in the lower lung field with a possible small pleural effusion. The patient was started on IV antibiotics and has been on oral prednisone. He is still short of breath and hypoxic and his blood gases were done following admission and showed a pH of 7.33, pCO2 of 68 and a pO2 of 79 on BiPap. The patient denies any chest pain and denies nausea or vomiting. PAST MEDICAL HISTORY Past history includes: A history of hypertension. PAST SURGICAL HISTORY Denies a history of surgery except for tonsillectomy at a young age. ALLERGIES NO KNOWN DRUG ALLERGIES. FAMILY HISTORY Mother of breast cancer. Father had a stroke. SOCIAL HISTORY Habits, the patient smoked one pack per day for over 50 years until last week. Occasional alcohol use. REVIEW OF SYSTEMS The patient is overweight. He has leg edema and he has joint pains. He has dyspnea and orthopnea. He has some epigastric distress, nausea. No urinary symptoms. No leg or calf muscle pains. 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 No depression or anxiety. PHYSICAL EXAMINATION GENERAL: This moderately obese elderly man whose face is plethoric. He has mild peripheral cyanosis. VITAL SIGNS: Blood pressure 178/80, pulse is 95, respirations 22, temperature 98.5. HEENT: Head normocephalic. Pupils reactive. Tongue is moist. Throat is injected. Nasal mucosa is erythematous. NECK: Supple. No bruits. There is mild venous distension at 45 degrees. Trachea midline. CHEST: Increased AP diameter with decreased breath sounds at the bases with few bibasilar crackles and scattered wheezes throughout both lung sanders. CARDIOVASCULAR: Heart sounds irregular S1-S2. No murmur. No S3 gallop. ABDOMEN: Soft, obese with a liver just palpable over the costal margin. Bowel sounds are active. EXTREMITIES: Edema 2+ with pigmentation of the skin and diminished peripheral pulses. NEUROLOGICAL: Reflexes are 1+ with no gross motor deficits. Cranial nerves grossly intact. RECTAL: Exam deferred. SKIN: No lesions. IMPRESSION 1. COPD with chronic bronchitis and emphysema. 2. Hypertension. 3. Cor pulmonology. 4. Congestive heart failure. PLAN The patient had a chest x-ray but will be sent for a V/Q lung scan and also get a CT of the chest to evaluate him for any lung masses. Pulmonary function studies will be done at the bedside. We will resume Solu-Medrol 40 mg IV q.8h. Continue with antibiotic coverage as ordered including Levaquin 500 milligrams IV daily. Nebulized DuoNeb solution every 6 hours and Symbicort was added 160/4.5 two puffs twice daily. The patient was also advised that a sleep study would be advisable once he is discharged. Counseled on quitting cigarette smoking and using a nicotine patch. Thank you Dr. Mai for this consultation. MD RADHA Rodrigez/KK /6:13 PM /7:56 PM
--- NOTE | 2016-07-29 20:33 | RADHPO ---
EXAM DATE/TIME: 07/29/2016 19:51 [facility] COMPARISON: CHEST PA & LAT, July 29, 2016, 15:29. INDICATIONS : Evaluate for lung nodules. RADIATION DOSE: 29.57 CTDIvol (mGy) MEDICAL HISTORY : Congestive hearrt failure. Hypertension. Chronic obstructive pulmonary disease. SURGICAL HISTORY : None. ENCOUNTER: Initial ACUITY: 1 day PAIN SCALE: 0/10 LOCATION: chest TECHNIQUE: Volumetric scanning of the chest was performed. Using automated exposure control and adjustment of t he mA and/or kV according to patient size, radiation dose was kept as low as reasonably achievable to obtain optimal diagnostic quality images. FINDINGS: LUNGS: There is an irregular area of consolidation in the anterior right lower lung which measures 5.3 x 3.6 cm. There is a 10 mm nodular density in the lateral left costophrenic angle and no other 7 mm nodul ar densities. There are ill-defined areas of consolidative opacity or nodularity in the medial right midlung and in the lateral right middle. Focal area of groundglass opacity in the right lower lobe posterior to the main bronchus measures 9 mm. There are 2 calcified granulomata in the right upper l obe. Prominent interstitial markings are seen in the upper lungs without infiltrates. PLEURAE: There are some scattered areas of focal pleural thickening about the posterior left mid and lower lori g and right lower lung. There is also some focal pleural calcifications in the medial left midlung. MEDIASTINUM: There are multiple mildly prominent mediastinal lymph nodes measuring up 1.8 cm. There is 2 lymph no kecia measuring 11 mm adjacent to the aortic arch. No adenopathy in the AP window. There are 2 calcif ied right suprahilar and one supra-azygos node AXILLAE: Within normal limits. No lymphadenopathy. MUSCULOSKELETAL: No focal destructive lesion seen. MISCELLANEOUS: Most of the thyroid gland is substernal in location. There is a mass in the left adrenal gland measu ring 1.9 x 2.9 cm. There is hypertrophy of the right adrenal gland. CONCLUSION: Multiple findings which suggest malignancy including irregular masslike opacity lower right lung, mul tiple nodules in both lungs measuring up to 2 mm , focal areas of pleural thickening, several non-megan cified middle mediastinal lymph nodes measuring up to 12 mm in and left adrenal mass. Benign finding s include granulomatous calcifications in the right upper lung and mediastinum as well as substernal thyroid. Pedro Perez MD on July 29, 2016 at 20:13 Board Certified Radiologist. This report was verified electronically.
[2016-07-29] MEDS: BUDESONIDE-FORMOTEROL 160/4.5 MCG INHALER INH SCH (21:50)
[2016-07-29] MEDS: methylPREDNISolone SOD SUCC 40 MG/1 ML VIAL IV PUSH SCH (21:52)
[2016-07-30] VITALS (10 sets, daily range): BP systolic 139–181; BP diastolic 77–96; PULSE 70–88; RESP 17–20; TEMP 95.7–98.1; O2SAT 92–99
[2016-07-30 05:13] LABS: BLOOD GAS BASE EXCESS 11.4 mmol/L (-2-2); BLOOD GAS CARBOXYHEMOGLOBIN 2.3 % (0-4); BLOOD GAS HCO3 37 mmol/L (22-26); BLOOD GAS O2 HGB SATURATION 92 % (90-100); BLOOD GAS OXYGEN CONTENT 19.7 Vol % (12.0-20.0); BLOOD GAS PCO2 65 mmHG (38-42); BLOOD GAS PO2 78 mmHG (61-120); BLOOD GAS TOTAL HGB 15.2 G/DL (12.0-16.0); CRITICAL VALUE YES; TEMP CORR TO 98.6
[2016-07-30 05:14] LABS: DRAW SITE RT RADIAL; FIO2 35 %; NUMBER OF ARTERIAL PUNCTURES 1; OXYGEN DEVICE BIPAP; STAT NO; ULNAR PULSE PRESENT; VENT SETTINGS IPAP 12/ EPAP 5
[2016-07-30] MEDS: methylPREDNISolone SOD SUCC 40 MG/1 ML VIAL IV PUSH SCH ×3 (06:11→21:28)
--- NOTE | 2016-07-30 06:42 | MB ---
cc: ZACH AGUIRRE DATE OF 1940 DATE OF CONSULTATION July 29, 2016 REASON FOR CONSULTATION Heart failure. HISTORY OF PRESENT ILLNESS A 75-year-old male with past medical history significant for obesity, tobacco abuse and hypertension who was admitted to the hospital on 07/26/16 with hypoxia , dyspnea and bilateral leg swelling. He reports increasing shortness of breath with exertion for the last couple of days, denies fevers, chills or chest pain, palpitations, PND, recent travels, lightheadedness or bleeding issues. He has been admitted to the medical floor and started him on breathing treatments for COPD as well as IV diuresis. Cardiology has been consulted for heart failure management. Currently he has being treated for COPD exacerbation and pneumonia. REVIEW OF SYSTEMS Negative except for what is mentioned in the HPI. PAST MEDICAL HISTORY Hypertension. PAST SURGICAL HISTORY None. HOME MEDICATIONS Enalapril 20 mg p.o. daily. MEDICATIONS IN HOSPITAL 1. Albuterol nebulizers. 2. Symbicort inhalers. 3. Coreg. 4. Enalapril. 5. Bumex. 6. Levaquin. 7. Solu-Medrol. 8. Nicotine patch. SOCIAL HISTORY He smokes at least a pack of cigarettes per day. He drinks occasional alcohol. No illicit drug abuse. He lives with his who also smokes. FAMILY HISTORY Noncontributory. The patient has never seen a game tester. PHYSICAL EXAMINATION VITAL SIGNS: Temperature 97, pulse 77, respiratory rate 18, blood pressure 130/ 70, pulse oximetry 94% on 6 liters nasal cannula. He on BiPap at night. GENERAL: He is awake, alert, oriented x 3, in no acute distress. NECK: +JVD. HEART: Regular rate and rhythm. No murmurs, rubs or gallops appreciated. LUNGS: Decreased inspiratory effort bilaterally. Crackles at the bases in both lungs. ABDOMEN: Obese, soft, nontender, nondistended. Positive bowel sounds. EXTREMITIES: There is +2 edema. There are pulses throughout. DATA CBC - White count trending down from 11 to 10, hemoglobin 15, hematocrit of 48, platelet count 245. Chemistries - Sodium 146, potassium 5, BUN 43, creatinine 1.3 trending down from 1.4. Troponin 0.13, 0.11, 0.08. BNP 400. CHEST X-RAY On admission shows some pulmonary edema and enlargement of the pulmonary vessels. Repeat chest x-ray today shows patchy interstitial infiltrates in the mid and lower lungs with a small right pleural effusion. ECHOCARDIOGRAM Done on the of this month, shows an estimated ejection fraction of 55% with no wall motion abnormalities, increased right ventricular systolic pressure of 46 mmHg. No significant valvulopathies. EKGs Sinus rhythm with no acute ST changes. ASSESSMENT AND PLAN A 75-year-old male with history of hypertension, active smoker who presented with dyspnea on exertion and peripheral edema being now treated for COPD/ pneumonia. Currently he remains fairly hemodynamically stable. He reports feeling better with the treatment so far given in the hospital. He still has significant leg edema and shortness of breath, BNP elevated. His echocardiogram LV systolic function is normal with an EF of 55%. The right ventricle also looks normal; however, his PA pressures are elevated most likely due to underlying lung disease consistent with COPD. At this point I will continue IV diuresis as well as COPD treatment. Change Bumex to Lasix 40 mg IV b.i.d. and consider pursuing CT of chest. Continue aggressive management for primary prevention of CAD. When the patient is more stable, he should undergo myocardial perfusion study to risk stratify CAD. In the meantime, agree with continuing the Coreg, the enalapril, titrate up as tolerated and smoking cessation. Also, check a lipid profile. Thank you for the opportunity to take part in the care of this patient. MD UMA Rausch/RAN /7:59 PM /6:24 AM KANDIS
[2016-07-30] MEDS: RESP: ALBUTEROL 2.5 MG/IPRATROPIUM 0.5 MG NEB (SCH) NEB ×3 (07:42→19:37)
[2016-07-30] MEDS: NICOTINE 14 MG/24 HR PATCH TD SCH (08:38)
[2016-07-30] MEDS: ENALAPRIL MALEATE 10 MG TAB PO SCH (08:39)
[2016-07-30] MEDS: SODIUM CHLORIDE 0.9% FLUSH 5 ML FLUSH IVF SCH ×2 (08:40→20:13)
[2016-07-30] MEDS: CARVEDILOL 6.25 MG TAB PO SCH ×2 (08:40→20:13)
[2016-07-30] MEDS: FUROSEMIDE 40 MG/4 ML VIAL IV PUSH SCH ×2 (08:40→17:13)
--- NOTE | 2016-07-30 10:39 | RADHPO ---
EXAM DATE/TIME: 07/30/2016 10:15 [facility] COMPARISON: CT THORAX W/O CONTRAST, July 29, 2016, 19:51. CHEST PA & LAT, July 29, 2016, 15:29. INDICATIONS : Shortness of breath for 3 weeks, Hypoxia and chronic leg edema. DOSE: 8.1 mCi Tc99m MAA IV 1.1 mCi Tc99m DTPA aerosol MEDICAL HISTORY : Hypertension. Chronic obstructive pulmonary disease. SURGICAL HISTORY : None. ENCOUNTER: Initial ACUITY: 3 weeks PAIN SCALE: 3/10 LOCATION: Bilateral chest TECHNIQUE: Following five minutes of tidal breathing of DTPA aerosol, planar images of the lungs were performed in eight projections. The patient was then injected with MAA, and eight-view perfusion scan was perf ormed. FINDINGS: There is marked inhomogeneous alveolar aeration without correlative perfusion defects. Low probabilit y of pulmonary emboli. CONCLUSION: Marked inhomogeneous alveolar xation without evidence of pulmonary emboli. Findings suggest bronchosp asm or CHF. Zachary Gusman MD on July 30, 2016 at 10:35 Board Certified Radiologist. This report was verified electronically.
[2016-07-30] MEDS: BUDESONIDE-FORMOTEROL 160/4.5 MCG INHALER INH SCH ×2 (10:42→20:12)
--- NOTE | 2016-07-30 11:13 | HHI.PR ---
Subjective Remarks Patient seen today in follow-up for CHF exacerbation and COPD exacerbation. Cardiology and pulmonary consultation appreciated. Patient still requiring up to 6 L of oxygen. He has some increased lower extremity swelling Objective Vitals Vital Signs Date Time Temp Pulse Resp B/P Pulse Ox O2 Delivery O2 Flow Rate FiO2 07/30/16 08:53 95.7 80 18 181/96 92 07/30/16 07:45 99 Nasal Cannula 6.00 07/30/16 04:40 92 35 07/30/16 01:06 92 35 07/30/16 00:00 98.1 70 19 139/80 96 07/29/16 23:15 92 35 07/29/16 20:20 92 Nasal Cannula 6.00 07/29/16 20:06 88 Nasal Cannula 6.00 07/29/16 20:00 98.3 72 19 144/74 94 07/29/16 16:00 97.6 77 18 130/70 94 07/29/16 12:00 96.4 76 18 121/64 94 I/O 07/29/16 07/29/16 07/29/16 07/30/16 07/30/16 07/30/16 06:59 14:59 22:59 06:59 14:59 22:59 Intake Total 950 ml 730 ml 0 ml Output Total 250 ml 350 ml Balance -250 ml 950 ml 730 ml -350 ml Intake Oral 950 ml 600 ml IV Total 130 ml 0 ml Output Urine Total 250 ml 350 ml # Voids 3 Result Diagram: 07/29/16 0632 07/29/16 0632 Imaging Last Impressions Chest CT 07/29/16 1817 Signed Impressions: Service Date/Time: Friday, July 29, 2016 19:51 - CONCLUSION: Multiple findings which suggest malignancy including irregular masslike opacity lower right lung, multiple nodules in both lungs measuring up to 2 mm , focal areas of pleural thickening, several non-calcified middle mediastinal lymph nodes measuring up to 12 mm in and left adrenal mass. Benign findings include granulomatous calcifications in the right upper lung and mediastinum as well as substernal thyroid. Pedro Perez MD Chest X-Ray 07/29/16 0000 Signed Impressions: Service Date/Time: Friday, July 29, 2016 15:29 - CONCLUSION: Persistent patchy interstitial infiltrates mid and lower lungs and possible new small right pleural effusion. Pedro Perez MD Objective Remarks GENERAL: This is a well-nourished, well-developed patient, in no apparent distress. CARDIOVASCULAR: Regular rate and rhythm without murmurs, gallops, or rubs. RESPIRATORY: Clear to auscultation. Breath sounds equal bilaterally. No wheezes , rales, or rhonchi. GASTROINTESTINAL: Abdomen soft, non-tender, nondistended. Normal active bowel sounds MUSCULOSKELETAL: Extremities without clubbing, cyanosis, there is +1-2 edema in lower extremities NEURO: Alert & Oriented x4 to person, place, time, situation. Moves all ext x4 A/P Problem List: (1) Congestive heart failure ICD Code: I50.9 Status: Acute Plan: New Coreg, enalapril, aspirin Likely right sided/diastolic secondary to severe COPD (2) Acute respiratory failure ICD Code: J96.00 Status: Acute Plan: COPD exacerbation Requiring 6 L O2, Continue bronchodilators, steroids, antibiotics, pulmonary consult appreciated Patient with abnormal CT showing possible mass. Discussed with pulmonary team. Request biopsy (3) Elevated troponin ICD Code: R79.89 Status: Acute Plan: May need cardio eval when stable Cardio consult appreciated (4) Renal failure ICD Code: N19 Status: Acute Plan: better, follow trend avoid nephrotoxins Assessment and Plan LMWH dvt PPX Problem Qualifiers (1) Congestive heart failure: Qualified Code: I50.9 - Acute congestive heart failure, unspecified congestive heart failure type Rocoi Mai MD Jul 30, 2016 11:13
--- NOTE | 2016-07-30 13:58 | RADHPO ---
EXAM DATE/TIME: 07/30/2016 10:49 [facility] COMPARISON: CT scan 07/29/16 INDICATIONS : Lung Mass FINDINGS: CT scan is reviewed which demonstrates alveolar opacity in the right lower lobe as well as small pleural based nodules in the left lower lobe. There are diffuse areas of scattered alveolar disease. Based on the appearance would not recommend biopsy as the lesion size is small and multiple lesions are present. PET/CT scan is recommended to further evaluation if clinically indicated. He alternative short-term followup CT scan with repeat examination in 3 months is recommended. CONCLUSION: 1. Inadequate target for biopsy. Please see above. Barrera Lakhani MD on July 30, 2016 at 13:44 Board Certified Radiologist. This report was verified electronically.
[2016-07-30] MEDS: ENOXAPARIN SODIUM 40 MG/0.4 ML SYRINGE SQ SCH (15:43)
[2016-07-30] MEDS: LEVOFLOXACIN 750 MG PREMIX INJ 150 ML IV SCH (17:13)
--- NOTE | 2016-07-30 19:29 | HHI.PR ---
Subjective Remarks C/O leg edema. Has a cough with some wheezing. CT chest shows a right lung density. Objective Vital Signs Date Time Temp Pulse Resp B/P Pulse Ox O2 Delivery O2 Flow Rate FiO2 07/30/16 16:00 97.2 82 17 148/77 92 07/30/16 13:19 96.2 79 18 158/80 95 07/30/16 08:53 95.7 80 18 181/96 92 07/30/16 07:45 99 Nasal Cannula 6.00 07/30/16 04:40 92 35 07/30/16 01:06 92 35 07/30/16 00:00 98.1 70 19 139/80 96 07/29/16 23:15 92 35 07/29/16 20:20 92 Nasal Cannula 6.00 07/29/16 20:06 88 Nasal Cannula 6.00 07/29/16 20:00 98.3 72 19 144/74 94 I/O 07/29/16 07/29/16 07/29/16 07/30/16 07/30/16 07/30/16 07:00 15:00 23:00 07:00 15:00 23:00 Intake Total 950 ml 730 ml 0 ml 720 ml 120 ml Output Total 250 ml 350 ml 325 ml 2025 ml Balance -250 ml 950 ml 730 ml -350 ml 395 ml -1905 ml Intake Oral 950 ml 600 ml 720 ml 120 ml IV Total 130 ml 0 ml Output Urine Total 250 ml 350 ml 325 ml 2025 ml # Voids 3 Result Diagram: 07/29/16 0632 07/29/16 0632 Objective Remarks GENERAL: This moderately obese elderly man whose face is plethoric. He has mild peripheral cyanosis. HEENT: Head normocephalic. Pupils reactive. Tongue is moist. Throat is injected. Nasal mucosa is erythematous. NECK: Supple. No bruits. There is mild venous distension at 45 degrees. Trachea midline. CHEST: Increased AP diameter with decreased breath sounds at the bases with few bibasilar crackles and scattered wheezes throughout both lung sanders. CARDIOVASCULAR: Heart sounds irregular S1-S2. No murmur. No S3 gallop. ABDOMEN: Soft, obese with a liver just palpable over the costal margin. Bowel sounds are active. EXTREMITIES: Edema 2+ with pigmentation of the skin and diminished peripheral pulses. NEUROLOGICAL: Reflexes are 1+ with no gross motor deficits. Cranial nerves grossly intact. RECTAL: Exam deferred. SKIN:Pigmented in lower legs. Assessment and Plan Assessment and Plan IMPRESSION 1. COPD with chronic bronchitis and emphysema. 2. Hypertension. 3. Cor pulmonology. 4. Congestive heart failure. 5. Right lower lung mass Plan : 1. Wean O2 to [address] guided biopsy of lung mass. 3. Continue Levaquin IV. 4. Nebs qid , duoneb. 5. Continue Lasix 20 mg dailt. 6. Hold anticoagulants. 7. PFT in am. Godfrey Pappas MD Jul 30, 2016 19:29
[2016-07-31] VITALS (9 sets, daily range): BP systolic 141–187; BP diastolic 76–92; PULSE 72–82; RESP 20–24; TEMP 96.2–97.6; O2SAT 91–97
[2016-07-31 06:28] LABS: HEMATOCRIT 47.3 % (39.0-51.0); MEAN CELL VOLUME 94.4 FL (80.0-100.0); MEAN CORPUSCULAR HEMOGLOBIN 30.7 PG (27.0-34.0); MEAN CORPUSCULAR HGB CONC 32.5 % (32.0-36.0); PLATELET COUNT 200 TH/MM3 (150-450); RED BLOOD COUNT 5.02 MIL/MM3 (4.50-5.90); RED CELL DISTRIBUTION WIDTH 15.1 % (11.6-17.2); REVIEW FLAG FINAL; WHITE BLOOD COUNT 7.2 TH/MM3 (4.0-11.0)
[2016-07-31] MEDS: methylPREDNISolone SOD SUCC 40 MG/1 ML VIAL IV PUSH SCH ×3 (06:34→20:36)
[2016-07-31 06:41] LABS: POTASSIUM 4.3 MEQ/L (3.5-5.1)
[2016-07-31 06:44] LABS: BICARBONATE 39.5 MEQ/L (21.0-32.0)
[2016-07-31] MEDS: RESP: ALBUTEROL 2.5 MG/IPRATROPIUM 0.5 MG NEB (SCH) NEB ×3 (08:04→19:42)
[2016-07-31] MEDS: ENALAPRIL MALEATE 10 MG TAB PO SCH (09:01)
[2016-07-31] MEDS: FUROSEMIDE 40 MG/4 ML VIAL IV PUSH SCH ×2 (09:01→18:19)
[2016-07-31] MEDS: SODIUM CHLORIDE 0.9% FLUSH 5 ML FLUSH IVF SCH ×2 (09:02→20:36)
[2016-07-31] MEDS: CARVEDILOL 6.25 MG TAB PO SCH ×2 (09:02→20:36)
[2016-07-31] MEDS: NICOTINE 14 MG/24 HR PATCH TD SCH (09:02)
[2016-07-31] MEDS: BUDESONIDE-FORMOTEROL 160/4.5 MCG INHALER INH SCH ×2 (09:02→20:35)
[2016-07-31 11:14] LABS: INTERNATIONAL NORMALIZED RATIO 1.1 RATIO; PROTHROMBIN TIME - PATIENT 12.3 SEC (9.8-11.6)
--- NOTE | 2016-07-31 15:45 | HHI.PR ---
Subjective Remarks Patient seen and evaluated today in follow-up for respiratory failure. Tolerating treatments for COPD and the H. Unable to get a biopsy due to the small mass size. Recommend outpatient follow-up with possible PET scan in our repeat CT in the future. Discussed with patient and spouse. They're agreeable Objective Vitals Vital Signs Date Time Temp Pulse Resp B/P Pulse Ox O2 Delivery O2 Flow Rate FiO2 07/31/16 12:00 97.0 79 24 141/76 94 07/31/16 08:30 94 Nasal Cannula 5.00 07/31/16 08:00 96.8 82 22 187/92 93 07/31/16 04:37 97.4 80 20 150/84 97 07/31/16 01:50 93 35 07/31/16 00:00 96.2 72 20 142/80 94 07/30/16 23:15 92 35 07/30/16 20:00 97.2 88 20 160/90 95 07/30/16 19:35 92 Nasal Cannula 5.00 07/30/16 16:00 97.2 82 17 148/77 92 I/O 07/30/16 07/30/16 07/30/16 07/31/16 07/31/16 07/31/16 07:00 15:00 23:00 07:00 15:00 23:00 Intake Total 0 ml 720 ml 120 ml 820 ml Output Total 350 ml 325 ml 2225 ml 1100 ml Balance -350 ml 395 ml -2105 ml -280 ml Intake Oral 720 ml 120 ml 820 ml IV Total 0 ml Output Urine Total 350 ml 325 ml 2225 ml 1100 ml # Voids 1 # Bowel Movements 1 Result Diagram: 07/31/16 0602 07/31/16 0602 Objective Remarks GENERAL: This is a well-nourished, well-developed patient, in no apparent distress. CARDIOVASCULAR: Regular rate and rhythm without murmurs, gallops, or rubs. RESPIRATORY: Clear to auscultation. Breath sounds equal bilaterally. No wheezes , rales, or rhonchi. GASTROINTESTINAL: Abdomen soft, non-tender, nondistended. Normal active bowel sounds MUSCULOSKELETAL: Extremities without clubbing, cyanosis, there is +1-2 edema in lower extremities NEURO: Alert & Oriented x4 to person, place, time, situation. Moves all ext x4 A/P Problem List: (1) Congestive heart failure ICD Code: I50.9 Status: Acute Plan: New Coreg, enalapril, aspirin, Lasix Likely right sided/diastolic secondary to severe COPD (2) Acute respiratory failure ICD Code: J96.00 Status: Acute Plan: COPD exacerbation Requiring 5L O2, Continue bronchodilators, steroids, antibiotics, pulmonary consult appreciated Patient with abnormal CT showing possible mass. Discussed with pulmonary team. Request biopsy (3) Elevated troponin ICD Code: R79.89 Status: Acute Plan: May need further cardio eval when stable Cardio consult appreciated (4) Renal failure ICD Code: N19 Status: Acute Plan: better, follow trend avoid nephrotoxins Assessment and Plan LMWH dvt PPX Problem Qualifiers (1) Congestive heart failure: Qualified Code: I50.9 - Acute congestive heart failure, unspecified congestive heart failure type Rocio Mai MD Jul 31, 2016 15:45
[2016-08-01] VITALS (10 sets, daily range): BP systolic 136–145; BP diastolic 72–83; PULSE 64–87; RESP 18–20; TEMP 97.4–98.2; O2SAT 92–95
[2016-08-01] MEDS: methylPREDNISolone SOD SUCC 40 MG/1 ML VIAL IV PUSH SCH ×2 (06:45→14:00)
[2016-08-01] MEDS: RESP: ALBUTEROL 2.5 MG/IPRATROPIUM 0.5 MG NEB (SCH) NEB ×3 (07:20→19:31)
[2016-08-01] MEDS: ENALAPRIL MALEATE 10 MG TAB PO SCH (10:29)
[2016-08-01] MEDS: FUROSEMIDE 40 MG/4 ML VIAL IV PUSH SCH ×2 (10:29→18:46)
[2016-08-01] MEDS: CARVEDILOL 6.25 MG TAB PO SCH ×2 (10:29→22:51)
[2016-08-01] MEDS: NICOTINE 14 MG/24 HR PATCH TD SCH (10:29)
[2016-08-01] MEDS: BUDESONIDE-FORMOTEROL 160/4.5 MCG INHALER INH SCH ×2 (10:35→22:52)
[2016-08-01] MEDS: SODIUM CHLORIDE 0.9% FLUSH 5 ML FLUSH IVF SCH ×2 (10:36→22:52)
--- NOTE | 2016-08-01 16:55 | HHI.PR ---
Subjective Remarks Patient states he feels "great" today. He remains on 5 L nasal cannula. He states he does not get dyspneic with exertion. Hoping he can go home in the next day or 2. Objective Vitals Vital Signs Date Time Temp Pulse Resp B/P Pulse Ox O2 Delivery O2 Flow Rate FiO2 08/01/16 16:00 98.2 76 19 136/80 95 08/01/16 12:00 97.6 80 18 138/79 94 08/01/16 08:00 97.4 73 18 145/83 95 08/01/16 07:20 93 Nasal Cannula 5.00 08/01/16 03:12 92 35 08/01/16 00:25 92 35 08/01/16 00:00 97.6 64 20 137/72 94 07/31/16 20:00 97.6 72 20 159/86 93 07/31/16 19:42 91 Nasal Cannula 5.00 I/O 07/31/16 07/31/16 07/31/16 08/01/16 08/01/16 08/01/16 06:59 14:59 22:59 06:59 14:59 22:59 Intake Total 820 ml 725 ml 720 ml 120 ml Output Total 1100 ml 950 ml 775 ml 375 ml 600 ml Balance -280 ml -225 ml -55 ml -255 ml -600 ml Intake Oral 820 ml 725 ml 720 ml 120 ml Output Urine Total 1100 ml 950 ml 775 ml 375 ml 600 ml Stool Total 0 ml # Voids 1 3 # Bowel Movements 1 1 0 0 Result Diagram: 07/31/1602 07/31/16 0602 Objective Remarks GENERAL: Well-nourished, well-developed pleasant elderly male patient. SKIN: Warm and dry. HEAD: Normocephalic. EYES: No scleral icterus. No injection or drainage. NECK: Supple, trachea midline. No JVD or lymphadenopathy. CARDIOVASCULAR: Regular rate and rhythm without murmurs, gallops, or rubs. RESPIRATORY: Breath sounds equal bilaterally. Lungs are clear to auscultation bilaterally however with prolonged expiratory phase. No accessory muscle use on 5 L. GASTROINTESTINAL: Abdomen soft, non-tender, nondistended. EXTREMITIES: No cyanosis, or edema. NEUROLOGICAL: Awake, alert, and oriented x 3. Non-focal. A/P Problem List: (1) Congestive heart failure ICD Code: I50.9 Status: Acute (2) Acute respiratory failure ICD Code: J96.00 Status: Acute (3) Elevated troponin ICD Code: R79.89 Status: Acute (4) Renal failure ICD Code: N19 Status: Acute (5) COPD exacerbation ICD Code: J44.1 Status: Acute Assessment and Plan -Acute respiratory failure due to COPD exacerbation, acute right sided diastolic CHF. Clinically improving. On 5 L nasal cannula. Will wean as tolerated. Continue bronchodilators, steroids, antibiotics, diuresis. He will need home O2 arranged prior to discharge. We'll check a walk test in the morning and wean his O2 to keep sats greater than 89%. -Right lung mass with multiple pulmonary nodules. Mass was too small to be biopsied by CT interventional radiology. Patient will need to have outpatient PET scan. -Acute kidney injury, resolving. -Mild elevation of troponin, likely secondary to the above. Cardiology evaluation appreciated. Follow-up cardiology outpatient. -DVT prophylaxis. Problem Qualifiers (1) Congestive heart failure: Qualified Code: I50.31 - Acute diastolic congestive heart failure Yanet Lackey MD Aug 01, 2016 16:55
--- NOTE | 2016-08-01 17:30 | HHI.PR ---
Subjective Remarks C/O leg edema. Less cough with some wheezing. CT chest shows a right lung density. Multiple lung nodules not large enough for Biopsy. Needs a PET CT as OP. Objective Vital Signs Date Time Temp Pulse Resp B/P Pulse Ox O2 Delivery O2 Flow Rate FiO2 08/01/16 16:00 98.2 76 19 136/80 95 08/01/16 12:00 97.6 80 18 138/79 94 08/01/16 08:00 97.4 73 18 145/83 95 08/01/16 07:20 93 Nasal Cannula 5.00 08/01/16 03:12 92 35 08/01/16 00:25 92 35 08/01/16 00:00 97.6 64 20 137/72 94 07/31/16 20:00 97.6 72 20 159/86 93 07/31/16 19:42 91 Nasal Cannula 5.00 I/O 07/31/16 07/31/16 07/31/16 08/01/16 08/01/16 08/01/16 07:00 15:00 23:00 07:00 15:00 23:00 Intake Total 820 ml 725 ml 720 ml 120 ml Output Total 1100 ml 950 ml 775 ml 375 ml 600 ml Balance -280 ml -225 ml -55 ml -255 ml -600 ml Intake Oral 820 ml 725 ml 720 ml 120 ml Output Urine Total 1100 ml 950 ml 775 ml 375 ml 600 ml Stool Total 0 ml # Voids 1 3 # Bowel Movements 1 1 0 0 Result Diagram: 07/31/16 0602 07/31/16 0602 Objective Remarks GENERAL: This moderately obese elderly man whose face is plethoric. He has mild peripheral cyanosis. HEENT: Head normocephalic. Pupils reactive. Tongue is moist. Throat is Clear. NECK: Supple. No bruits. There is mild venous distension . Trachea midline. CHEST: Increased AP diameter with decreased breath sounds at the bases with few bibasilar crackles and scattered wheezes over both lung sanders. CARDIOVASCULAR: Heart sounds irregular S1-S2. No murmur. No S3 gallop. ABDOMEN: Soft, obese with a liver just palpable over the costal margin. Bowel sounds are active. EXTREMITIES: Edema 2+ with pigmentation of the skin and diminished peripheral pulses. NEUROLOGICAL: Reflexes are 1+ with no gross motor deficits. Cranial nerves grossly intact. RECTAL: Exam deferred. SKIN:Pigmented in lower legs. Assessment and Plan Assessment and Plan IMPRESSION 1. COPD with chronic bronchitis and emphysema. 2. Hypertension. 3. Cor pulmonology. 4. Congestive heart failure. 5. Right lower lung mass Plan : 1. Wean O2 to 3 L.Arrange home O2 at 3 L. 2. Get a PET CT as OP in 4 weeks. 3. switch to po Levaquin 500 mg daily. 4. Nebs qid , duoneb. 5. Continue Lasix 20 mg daily. 6. Cont anticoagulants. 7. Prednisone 30 mg daily and taper over 2 weeks. 8. Home in 1 to 2 days. Will F/U as OP in 2 weeks Godfrey Pappas MD Aug 01, 2016 17:30
[2016-08-01] MEDS ORDERED: PILL SPLITTER OTHER PRN (17:45)
[2016-08-01] MEDS ORDERED: ENOXAPARIN SODIUM 40 MG/0.4 ML SYRINGE SQ SCH (18:00)
[2016-08-01] MEDS ORDERED: LEVOFLOXACIN 750 MG PREMIX INJ 150 ML IV SCH (18:00)
[2016-08-01] MEDS: POTASSIUM CHLORIDE 20 MEQ CONTROLLED RELEASE TAB PO SCH (22:52)
[2016-08-02] VITALS (9 sets, daily range): BP systolic 125–157; BP diastolic 68–80; PULSE 65–84; RESP 20–22; TEMP 96.8–97.4; O2SAT 92–95
[2016-08-02] MEDS: RESP: ALBUTEROL 2.5 MG/IPRATROPIUM 0.5 MG NEB (SCH) NEB (07:57)
[2016-08-02] MEDS: BUDESONIDE-FORMOTEROL 160/4.5 MCG INHALER INH SCH (08:12)
[2016-08-02] MEDS: SODIUM CHLORIDE 0.9% FLUSH 5 ML FLUSH IVF SCH (08:13)
[2016-08-02] MEDS: CARVEDILOL 6.25 MG TAB PO SCH (08:13)
[2016-08-02] MEDS: FUROSEMIDE 40 MG/4 ML VIAL IV PUSH SCH (08:13)
[2016-08-02] MEDS: ENALAPRIL MALEATE 10 MG TAB PO SCH (08:14)
[2016-08-02] MEDS: POTASSIUM CHLORIDE 20 MEQ CONTROLLED RELEASE TAB PO SCH (08:14)
[2016-08-02] MEDS: NICOTINE 14 MG/24 HR PATCH TD SCH (08:21)
[2016-08-02] MEDS ORDERED: LEVOFLOXACIN 500 MG TAB PO ONE (09:00)
[2016-08-02] MEDS ORDERED: predniSONE 20 MG TAB PO SCH (09:00)
[2016-08-02] MEDS ORDERED: LEVOFLOXACIN 500 MG TAB PO SCH (09:00)
--- NOTE | 2016-08-02 09:55 | HHI.FF ---
Face to Face Verification Diagnosis: (1) COPD exacerbation (2) Acute respiratory failure Physical Therapy Order: Evaluate and Treat Home Health Nursing Order: Medical education Signs/symptoms of disease process CHF education Oxygen administration education Medication education-adverse effect Nursing assessment with vital signs I have seen patient Holden Reid on 08/02/16. My clinical findings support the need for the requested home health care services because: Patient has SOB Deconditioned w/ increased weakness Need for psychosocial assistance I certify that my clinical findings support that this patient is homebound because: Hx COPD- exertion dyspnea/weakness Need for psychosocial assistance Poor cardiac reserve Yanet Lackey MD Aug 02, 2016 09:55
[2016-08-02] MEDS ORDERED: TIOT1AER2 INH (10:01)
[2016-08-02] MEDS ORDERED: OXYGENTANK NAS.CANULA (10:01)
[2016-08-02] MEDS ORDERED: VENTAER INH (10:01)
[2016-08-02] MEDS ORDERED: IPRASOL INH (10:01)
[2016-08-02] MEDS ORDERED: NEBULIZER1 MI1 (10:01)
[2016-08-02] MEDS ORDERED: PRED20 PO (10:04)
[2016-08-02] MEDS ORDERED: FURO1TAB60 PO (10:04)
[2016-08-02] MEDS ORDERED: SYMB160A INH (10:04)
[2016-08-02] MEDS ORDERED: CARV6.25 PO (10:04)
[2016-08-02] MEDS ORDERED: POTA20TA5 PO (10:04)
--- NOTE | 2016-08-02 10:08 | HHI.DS ---
Discharge Summary Admission Date Jul 26, 2016 at 11:49 Discharge Date: Aug 02, 2016 Admitting Diagnosis CHF, HYPOXIA (1) Congestive heart failure ICD Code: I50.9 (2) Acute respiratory failure ICD Code: J96.00 (3) Elevated troponin ICD Code: R79.89 (4) Renal failure ICD Code: N19 (5) COPD exacerbation ICD Code: J44.1 (6) Pulmonary mass ICD Code: R91.8 (7) Hypoxia ICD Code: R09.02 (8) HTN (hypertension) ICD Code: I10 Procedures None Brief History - From Admission 75-year-old gentleman with a history of hypertension. He did note that his blood pressure had been up lately and he saw his primary care doctor today who promptly sent him to the emergency room for further evaluation of hypoxemia. Patient has become progressively become more dyspneic. He only has a history of hypertension and has been taking lisinopril. He admits increasing lower extremity swelling over the last several weeks with increasing shortness of breath and dyspnea on exertion. He has orthopnea. Patient notes no fevers or chills and denies chest pain. Patient does have elevated troponin on arrival and denies any cardiac symptoms acutely. Patient this time is admitted into the hospital for further evaluation. He has urinated quite a bit with a single dose of Lasix. He is somewhat better with some bronchodilation and was given steroids treatment.. He denies any further cardiac history other than hypertension. He's never seen a tortilla maker. He does have a long tobacco use history of 50 pack years and continues to smoke up until the previous week. CBC/BMP: 07/31/16 0602 08/02/16 0518 Significant Findings Laboratory Tests Test 07/31/16 07/31/16 08/02/16 06:02 10:45 05:18 Chloride Level 96 MEQ/L 95 MEQ/L (98-107) (98-107) Carbon Dioxide Level 39.5 MEQ/L 41.0 MEQ/L (21.0-32.0) (21.0-32.0) Blood Urea Nitrogen 40 MG/DL (7-18) 51 MG/DL (7-18) Estimat Glomerular Filtration 59 ML/MIN (>89) 54 ML/MIN (>89) Rate Random Glucose 116 MG/DL (74-106) Calcium Level 8.3 MG/DL 8.1 MG/DL (8.5-10.1) (8.5-10.1) Prothrombin Time 12.3 SEC (9.8-11.6) Imaging Last Impressions Lung Scan-[facility] Nuclear Medicine 07/30/16 0000 Signed Impressions: Service Date/Time: Saturday, July 30, 2016 10:15 - CONCLUSION: Marked inhomogeneous alveolar xation without evidence of pulmonary emboli. Findings suggest bronchospasm or CHF. Zachary Gusman MD Consultation 07/30/16 0000 Signed Impressions: Service Date/Time: Saturday, July 30, 2016 10:49 - CONCLUSION: 1. Inadequate target for biopsy. Please see above. Barrera Lakhani MD Chest CT 07/29/161816 Signed Impressions: Service Date/Time: Friday, July 29, 2016 19:51 - CONCLUSION: Multiple findings which suggest malignancy including irregular masslike opacity lower right lung, multiple nodules in both lungs measuring up to 2 mm , focal areas of pleural thickening, several non-calcified middle mediastinal lymph nodes measuring up to 12 mm in and left adrenal mass. Benign findings include granulomatous calcifications in the right upper lung and mediastinum as well as substernal thyroid. Pedro Perez MD Chest X-Ray 07/29/16 0000 Signed Impressions: Service Date/Time: Friday, July 29, 2016 15:29 - CONCLUSION: Persistent patchy interstitial infiltrates mid and lower lungs and possible new small right pleural effusion. Pedro Perez MD PE at Discharge GENERAL: Well-nourished, well-developed pleasant elderly male patient. SKIN: Warm and dry. HEAD: Normocephalic. EYES: No scleral icterus. No injection or drainage. NECK: Supple, trachea midline. No JVD or lymphadenopathy. CARDIOVASCULAR: Regular rate and rhythm without murmurs, gallops, or rubs. RESPIRATORY: Breath sounds equal bilaterally. Lungs are clear to auscultation bilaterally however with prolonged expiratory phase. No accessory muscle use on 5 L. GASTROINTESTINAL: Abdomen soft, non-tender, nondistended. EXTREMITIES: No cyanosis, or edema. NEUROLOGICAL: Awake, alert, and oriented x 3. Non-focal. Hospital Course The patient was admitted to the ICU. He was placed on BiPAP, IV steroids, antibiotics, IV Lasix and bronchodilators. Pulmonology was consulted. He was also seen by cardiology. 2-D echocardiogram showed preserved ejection fraction. He gradually improved over the course of several days and was weaned to 4 L nasal cannula. Chest CT did show multiple irregular masslike opacities in the lower right lung with multiple nodules in both lungs. Attempt was made to undergo CT-guided biopsy of the mass in the right lung however it was too small for biopsy. Thus patient will undergo outpatient PET scan with Dr. Scout Borges after discharge. The patient is ambulating well on 4 L of nasal cannula O2. Home oxygen has been arranged. He will be discharged home today with home health care. Pt Condition on Discharge: Stable Discharge Disposition: Disch w/ Home Health Serv Discharge Time: > 30 minutes Discharge Instructions DIET: Follow Instructions for: Heart Healthy Diet Activities you can perform: Regular-No Restrictions Follow up Referrals: Pulmonology - 1 Week with Godfrey Pappas MD New Medications: Albuterol 18 GM Inh (Ventolin Hfa 18 GM Inh) 90 Mcg/Act Aer 2 PUFF INH Q4H PRN SHORTNESS OF BREATH #1 Ref 0 INHALER Furosemide (Lasix) 40 Mg Tab 40 MG PO DAILY edema #30 Ref 0 TAB Ipratropium-Albuterol Neb (Duoneb) 0.5-2.5 Mg/3 Ml Neb 1 NEBULE INH Q4HR NEB Breathing Treatment #180 Ref 0 NEBULE Nebulizer (Nebulizer) 1 Mis Mis 1 EA .ROUTE DIRECTED Breathing Treatment #1 Ref 0 EA Oxygen tank (Oxygen tank) 1 Ea Tank 2 LITER LAZ.CANULA CONTINUOUS Oxygen Concentrator Portable Gaseous 2 L/min via Nasal Cannula Continuous For 99 months HYPOXEMIA PREVENTION #4 CYLINDER Prednisone (Prednisone) 20 Mg Tab 20 MG PO DIRECTED 20 MG twice a day x 5 days, then 20 MG daily x 5 days, then 10 MG daily x 5 days then stop. Inflammation Days 15 Ref 0 TAB Tiotropium Inh (Spiriva Respimat Inh) 1.25 Mcg/Act Aero 2 PUFF INH DAILY 1.25 mcg = 1 inhalation Asthma Management #1 Ref 0 INHALER Budesonide-Formoterol Inh (Symbicort Inh) 160-4.5 Mcg/Act Aero 2 PUFF INH Q12HR copd #1 INHALER Carvedilol (Coreg) 6.25 Mg Tab 6.25 MG PO Q12HR chf #30 TAB Potassium Chloride Microencaps (Potassium Chloride Microencaps) 20 Meq Tab 20 MEQ PO DAILY Electrolyte Replacement #30 TAB Continued Medications: Enalapril (Enalapril) 20 Mg Tab 20 MG PO DAILY #30 Ref 0 TAB Yanet Lackey MD Aug 02, 2016 10:08
[2016-08-03] MEDS ORDERED: LEVOFLOXACIN 250 MG TAB PO SCH (09:00)
--- NOTE | 2016-08-13 10:24 | RSPPFT ---
DATE OF PROCEDURE: 07/30/16 COMMENTS: Spirometry demonstrates an FEV1 of 1.4 at 52% of predicted, FVC of 2.8 at 78%, FEV1/FVC ratio is 51%. The FEF 25-75 is 31% of predicted. Post-bronchodilator study demonstrated mild improvements in the spirometric values. Lung volumes were not completed. Flow volume loop suggests an obstructive pattern. IMPRESSION: 1. Moderately severe obstructive disease. 2. Significant response to use of bronchodilator indicating some reversibility.
== END 2016-08-02 14:28 | disposition home health service (06) | DRG 291 ==
LOC: PHED 10:17 → PHEDA 11:49 → PHEDH 15:53 → PH3A 07-27 11:06
PROVIDERS: ADMIT Family Medicine; ATTEND Family Medicine
PROC: 5A09557 Assistance with Respiratory Ventilation, Greater than 96 Consecutive Hours, Continuous Positive Airway Pressure (ICD-10-PCS; principal; 2016-07-26)
DX: I50.31 Acute diastolic (congestive) heart failure (principal); J96.01 Acute respiratory failure with hypoxia; N17.9 Acute kidney failure, unspecified; E87.2 Acidosis; J44.0 Chronic obstructive pulmonary disease with (acute) lower respiratory infection; Z68.41 Body mass index [BMI] 40.0-44.9, adult; J44.1 Chronic obstructive pulmonary disease with (acute) exacerbation; I10 Essential (primary) hypertension; F17.210 Nicotine dependence, cigarettes, uncomplicated; E66.9 Obesity, unspecified; R91.8 Other nonspecific abnormal finding of lung field; Z23 Encounter for immunization
CPT/HCPCS: 36600; 71010; 71020; 71250; 78582; 80048; 80053; 81001; 82805; 83880; 84484; 85025; 85027; 85610; 87040; 87804; 90471; 90686; 90732; 93005; 93306; 94002; 94003; 94060; 94620; 94640; 94664; 96374; 96375; A9540; A9567; G0008; G0009; J1650; J1940; J1956; J2920; J2930; J7512; Q2038

== ENCOUNTER 2016-11-20 09:21 | Day surgery (SDC) | payer OTHER ==
[2016-11-20] VITALS (7 sets, daily range): BP systolic 96–130; BP diastolic 56–75; PULSE 86–98; RESP 18–22; TEMP 98–98.2; O2SAT 89–95
[~2016-11-20] VITALS: Ht 167.6 cm; Wt 117.0 kg
[~2016-11-20 09:21] MED LIST changes: +CARV6.25 PO; +ENAL20TA PO; -ENAL20TA81 PO; +FURO1TAB60 PO; +IPRASOL INH; -METO25 PO; +NEBULIZER1 MI1; +OXYGENTANK NAS.CANULA; +POTA20TA5 PO; +PRED20 PO; +SYMB160A INH; +TIOT1AER2 INH; +VENTAER INH
[2016-11-20] MEDS ORDERED: ALLO100T PO (10:13)
[2016-11-20] MEDS ORDERED: CYAN1000P IM (10:13)
[2016-11-20] MEDS ORDERED: VITA10003 PO (10:13)
[2016-11-20] MEDS ORDERED: OMEP10CA PO (10:15)
[2016-11-20] MEDS ORDERED: RESP: ALBUTEROL 2.5 MG/IPRATROPIUM 0.5 MG NEB (SCH) NEB ONE ×2 (10:45→15:00)
[2016-11-20] MEDS ORDERED: LIDOCAINE 1%/EPINEPHrine 1:100,000 SOLN 20 ML VIAL ONE (11:44)
[2016-11-20] MEDS ORDERED: MIDAZOLAM HCL 5 MG/5 ML VIAL ONE (12:02)
[2016-11-20] MEDS ORDERED: fentaNYL CITRATE 250 MCG/5 ML AMP ONE (12:02)
[2016-11-20] MEDS ORDERED: oxyCODONE/ACETAMINOPHEN 5 MG/325 MG TAB PO PRN (14:00)
--- NOTE | 2016-11-20 15:00 | RADRPT ---
EXAM DATE/TIME: 11/20/2016 12:15 [facility] COMPARISON: No previous studies available for comparison. INDICATIONS : Retroperitoneal lymph node. SEDATION TIME: 15 minutes BIOPSY SITE: Retroperitoneum MEDICATION(S): 1.) 2 mg midazolam (Versed) IV 2.) 100 mcg fentanyl (Sublimaze) IV DEVICE(S): 1.) 20 gauge Temno core biopsy needle MEDICAL HISTORY : Hypertension. Prostate cancer. SURGICAL HISTORY : None. ENCOUNTER: Initial ACUITY: 1 day PAIN SCORE: 0/10 LOCATION: retroperitoneum A total of two core specimen(s) were obtained and sent to the laboratory for pathologic evaluation. PROCEDURE: 1. CT guided lymph node biopsy. 2. Conscious sedation with continuous EKG and oximetry monitoring. 3. EKG and oximetry remained stable throughout the procedure. Prior to the procedure informed consent was obtained. Any appropriate prior imaging studies were rev iewed. Using automated exposure control and adjustment of the mA and/or kV according to patient size, radiat ion dose was kept as low as reasonably achievable to obtain optimal diagnostic quality images. The site was prepped in a sterile fashion. Full sterile technique was used, including cap, mask, santiago rile gloves and gown and a large sterile sheet. Hand hygiene and 2% chlorhexidine and/or betadine/al cohol prep was utilized per protocol for cutaneous antisepsis. The skin and subcutaneous tissues wer e infiltrated with local anesthetic solution. With CT guidance the previously identified target was localized. Biopsy was performed using the presc ribed needle as above. Adequate hemostasis was obtained with compression at the puncture site. Follow-up CT scan reveals no hemorrhage. The patient tolerated the procedure well and there were no complications. The patient was returned to the Radiology Outpatient Unit in stable condition. CONCLUSION: Uncomplicated CT guided biopsy of left para-aortic adenopathy. Chuy Garcia MD on November 20, 2016 at 14:57 Board Certified Radiologist. This report was verified electronically.
== END 2016-11-20 15:25 | disposition home or self-care (01) ==
LOC: HRAD 09:21 → HRIP 09:43 → HRAD 15:25
PROVIDERS: ATTEND Urology
DX: C61 Malignant neoplasm of prostate (principal); R59.9 Enlarged lymph nodes, unspecified; I10 Essential (primary) hypertension; J44.9 Chronic obstructive pulmonary disease, unspecified
CPT/HCPCS: 38505; 77012; 88305; 88341; 88342; 94664; 99152; J2250; J3010

== ENCOUNTER 2017-02-28 20:48 | Emergency (ER) | payer OTHER ==
[~2017-02-28] VITALS: Ht 167.6 cm; Wt 118.7 kg
[~2017-02-28 20:48] MED LIST changes: +ALLO100T PO; +CYAN1000P IM; +OMEP10CA PO; -PRED20 PO; +VITA10003 PO
[2017-02-28 21:08] VITALS: BP 131/74; PULSE 92; RESP 20; TEMP 98.3; O2SAT 92
[2017-02-28] MEDS ORDERED: VITA100018 PO (21:32)
--- NOTE | 2017-02-28 21:39 | PD ---
HPI Chief Complaint: Abdominal Pain Time Seen by Provider: 21:29 Travel History International Travel<30 days: No Contact w/Intl Traveler<30days: No Traveled to known affect area: No History of Present Illness HPI This 76-year-old male is complaining of right lower quadrant pain. He says the pain started around 4:00 this morning and the pain has been fairly steady since it started. He has not vomited. He is not aware of fever or chills. He is being treated for metastatic prostate cancer. He gets a injection of hormone. He gets injection on Saturday and he says he has a poor appetite with gets the injection. He got his second injection last Saturday. He gets injections every 3 months area the prostate cancer was diagnosed with a biopsy of a para-aortic node. PFSH Past Medical History Cancer: No Cardiovascular Problems: Yes Chemotherapy: Yes (shot, pt had it on Saturday) Congestive Heart Failure: Yes Coronary Artery Disease: No Diabetes: No Endocrine: No Genitourinary: No Hypertension: Yes Immune Disorder: No Musculoskeletal: No Neurologic: No Psychiatric: No Reproductive: No Respiratory: Yes Immunizations Current: Yes Thyroid Disease: No Past Surgical History AICD: No Joint Replacement: No Pacemaker: No Social History Alcohol Use: Yes (OCC) Tobacco Use: Yes (1 PPD) Substance Use: Yes Allergies-Medications (Allergen,Severity, Reaction): Coded Allergies: No Known Allergies (Verified , 02/28/17) Reported Meds & Prescriptions Reported Meds & Active Scripts Active Symbicort Inh (Budesonide/Formoterol Fumarate) 160-4.5 Mcg/Act Aero 2 Puff INH Q12HR Potassium Chloride Microencaps 20 Meq Tab 20 Meq PO DAILY Coreg (Carvedilol) 6.25 Mg Tab 6.25 Mg PO Q12HR Lasix (Furosemide) 40 Mg Tab 40 Mg PO DAILY Nebulizer 1 Mis Mis 1 Ea .ROUTE DIRECTED Oxygen tank (Oxygen) 1 Ea Tank 2 Liter LAZ.CANULA CONTINUOUS Oxygen Concentrator Portable Gaseous 2 L/min via Nasal Cannula Continuous For 99 months Spiriva Respimat Inh (Tiotropium Inh) 1.25 Mcg/Act Aero 2 Puff INH DAILY 1.25 mcg = 1 inhalation Duoneb (Ipratropium-Albuterol Neb) 0.5-2.5 Mg/3 Ml Neb 1 Nebule INH Q4HR NEB Ventolin Hfa 18 GM Inh (Albuterol Sulfate) 90 Mcg/Act Aer 2 Puff INH Q4H PRN Reported Vitamin D3 (Cholecalciferol) 1,000 Unit Tab 1,000 Units PO DAILY Omeprazole 10 Mg Cap 10 Mg PO DAILY Cyanocobalamin Inj (Cyanocobalamin) 1,000 Mcg/Ml Inj 1,000 Mcg IM MONTHLY Allopurinol 100 Mg Tab 100 Mg PO DAILY Enalapril (Enalapril Maleate) 20 Mg Tab 20 Mg PO DAILY Review of Systems General / Constitutional: No: Fever, Chills Eyes: No: Diploplia, Blurred Vision HENT: No: Headaches, Vertigo Cardiovascular: No: Chest Pain or Discomfort, Palpitations Respiratory: No: Cough Gastrointestinal: Positive: Nausea, Abdominal Pain, Loss of Appetite Genitourinary: No: Urgency, Frequency Skin: No Rash, No Itching Neurologic: No: Weakness Hematologic/Lymphatic: No: Easy Bruising Physical Exam Narrative GENERAL: Well-developed male SKIN: Focused skin assessment warm/dry. HEAD: Atraumatic. Normocephalic. EYES: Pupils equal and round. No scleral icterus. No injection or drainage. ENT: No nasal bleeding or discharge. Mucous membranes pink and moist. NECK: Trachea midline. No JVD. CARDIOVASCULAR: Regular rate and rhythm. No murmur appreciated. RESPIRATORY: No accessory muscle use. Clear to auscultation. Breath sounds equal bilaterally. GASTROINTESTINAL: Abdomen soft, there is some right lower quadrant tenderness with deep palpation, nondistended. No abnormal masses Hepatic and splenic margins not palpable. MUSCULOSKELETAL: No obvious deformities. No clubbing. No cyanosis. No edema. NEUROLOGICAL: Awake and alert. No obvious cranial nerve deficits. Motor grossly within normal limits. Normal speech. PSYCHIATRIC: Appropriate mood and affect; insight and judgment normal. Data Data Last Documented VS Vital Signs Date Time Temp Pulse Resp B/P (MAP) Pulse Ox O2 Delivery O2 Flow Rate FiO2 02/28/17 23:45 95 18 117/57 (77) 96 Nasal Cannula 2.00 02/28/17 21:08 98.3 Orders Orders Complete Blood Count With Diff (02/28/17 21:35) Comprehensive Metabolic Panel (02/28/17 21:35) Urinalysis - C+S If Indicated (02/28/17 21:35) Sodium Chlor 0.9% 1000 Ml Inj (Ns 1000 M (02/28/17 21:45) Ondansetron Inj (Zofran Inj) (02/28/17 21:45) Morphine Inj (Morphine Inj) (02/28/17 21:45) Ct Abd/Pel W/O Iv Contrast (02/28/17 22:26) Labs Laboratory Tests Test 02/28/17 21:45 White Blood Count 10.9 TH/MM3 Red Blood Count 4.01 MIL/MM3 Hemoglobin 12.1 GM/DL Hematocrit 36.8 % Mean Corpuscular Volume 91.7 FL Mean Corpuscular Hemoglobin 30.1 PG Mean Corpuscular Hemoglobin Concent 32.8 % Red Cell Distribution Width 14.8 % Platelet Count 209 TH/MM3 Mean Platelet Volume 9.2 FL Neutrophils (%) (Auto) 79.8 % Lymphocytes (%) (Auto) 8.4 % Monocytes (%) (Auto) 7.8 % Eosinophils (%) (Auto) 2.0 % Basophils (%) (Auto) 2.0 % Neutrophils # (Auto) 8.7 TH/MM3 Lymphocytes # (Auto) 0.9 TH/MM3 Monocytes # (Auto) 0.9 TH/MM3 Eosinophils # (Auto) 0.2 TH/MM3 Basophils # (Auto) 0.2 TH/MM3 CBC Comment DIFF FINAL Differential Comment Blood Urea Nitrogen 42 MG/DL Creatinine 2.50 MG/DL Random Glucose 106 MG/DL Total Protein 7.7 GM/DL Albumin 3.1 GM/DL Calcium Level 8.9 MG/DL Alkaline Phosphatase 102 U/L Aspartate Amino Transf (AST/SGOT) 19 U/L Alanine Aminotransferase (ALT/SGPT) 13 U/L Total Bilirubin 0.4 MG/DL Sodium Level 134 MEQ/L Potassium Level 5.1 MEQ/L Chloride Level 101 MEQ/L Carbon Dioxide Level 22.7 MEQ/L Anion Gap 10 MEQ/L Estimat Glomerular Filtration Rate 25 ML/MIN MDM Medical Decision Making Medical Screen Exam Complete: Yes Emergency Medical Condition: Yes Medical Record Reviewed: Yes Differential Diagnosis Differential includes appendicitis, prostate cancer Narrative Course CT shows right hydronephrosis. There appears to be soft tissue density at the level of the pelvic inlet around the right ureter. Also appears to be adenopathy throughout the retroperitoneum. The more distal aspect of the right ureter is thickened. There is thickening of the posterior lateral right aspect of the urinary bladder this is concerning for neoplasm involving the bladder and potentially the right ureter. Patient is not aware of this problem. Of note his creatinine today is 2.5. It has previously been about 1.3. Case was discussed with Dr. Vasquez covering for . Patient is stable for outpatient follow-up with Dr. brantley. I will prescribe Lortab and some Zofran Diagnosis Primary Impression: Hydroureter, right Additional Impression: Prostate cancer Scripts Ondansetron Odt (Zofran Odt) 4 Mg Tab 4 MG SL Q6HR Y for Nausea/Vomiting, #10 TAB 0 Refills Prov: Ángel Wilson MD 03/01/17 Hydrocodone-Acetaminophen (Lortab) 5-325 Mg Tab 1-2 TAB PO Q6H Y for PAIN, #30 TAB 0 Refills Prov: Ángel Wilson MD 03/01/17 Disposition: 01 DISCHARGE HOME Condition: Stable Ángel Wilson MD Feb 28, 2017 21:39
[2017-02-28] MEDS ORDERED: ONDANSETRON HCL 4 MG/2 ML VIAL IV PUSH ONE (21:45)
[2017-02-28] MEDS ORDERED: SODIUM CHLOR 0.9% 1000 ML INJ 1,000 ML IV SCH (21:45)
[2017-02-28] MEDS ORDERED: MORPHINE SULFATE 4 MG/ML INJ IV PUSH ONE (21:45)
[2017-02-28 21:56] LABS: AUTOMATED NEUTROPHIL # 8.7 TH/MM3 (1.8-7.7); BASOPHIL # 0.2 TH/MM3 (0-0.2); EOSINOPHIL # 0.2 TH/MM3 (0-0.4); HEMATOCRIT 36.8 % (39.0-51.0); LYMPH % 8.4 % (9.0-44.0); LYMPHOCYTE # 0.9 TH/MM3 (1.0-4.8); MEAN CELL VOLUME 91.7 FL (80.0-100.0); MEAN CORPUSCULAR HEMOGLOBIN 30.1 PG (27.0-34.0); MEAN CORPUSCULAR HGB CONC 32.8 % (32.0-36.0); MONO % 7.8 % (0.0-8.0); NEUT % 79.8 % (16.0-70.0); PLATELET COUNT 209 TH/MM3 (150-450); RED BLOOD COUNT 4.01 MIL/MM3 (4.50-5.90); RED CELL DISTRIBUTION WIDTH 14.8 % (11.6-17.2); WHITE BLOOD COUNT 10.9 TH/MM3 (4.0-11.0)
[2017-02-28 21:58] LABS: HEMO FLAGS DIFF FINAL
[2017-02-28 22:03] LABS: CHLORIDE 101 MEQ/L (98-107); POTASSIUM 5.1 MEQ/L (3.5-5.1); SODIUM (NA) 134 MEQ/L (136-145)
[2017-02-28 22:07] LABS: ANION GAP 10 MEQ/L (5-15); BICARBONATE 22.7 MEQ/L (21.0-32.0); BLOOD UREA NITROGEN 42 MG/DL (7-18)
[2017-02-28 22:10] LABS: ALT (GPT) 13 U/L (12-78); AST (GOT) 19 U/L (15-37); GLOMERULAR FILTRATION RATE 25 ML/MIN (>89)
[2017-02-28 22:11] LABS: TOTAL BILIRUBIN ADULT 0.4 MG/DL (0.2-1.0)
[2017-02-28 22:13] LABS: ALKALINE PHOSPHATASE 102 U/L (45-117)
[2017-02-28 22:51] VITALS: BP 108/55; PULSE 97; O2SAT 94
--- NOTE | 2017-02-28 23:13 | RADRPT ---
EXAM DATE/TIME: 02/28/2017 22:37 [facility] COMPARISON: CT THORAX W/O CONTRAST, July 29, 2016, 19:51. INDICATIONS : Nausea and right lower quadrant pain since 4a.m. ORAL CONTRAST: No oral contrast ingested. RADIATION DOSE: 24.96 CTDIvol (mGy) ; Patient body habitus MEDICAL HISTORY : Carcinoma, pancreas. Chronic obstructive pulmonary disease. Gastroesophageal r eflux disease. SURGICAL HISTORY : None. ENCOUNTER: Initial ACUITY: 1 day PAIN SCALE: 9/10 LOCATION: Right lower quadrant TECHNIQUE: Volumetric scanning of the abdomen and pelvis was performed. Using automated exposure control and adjustment of the mA and/or kV according to patient size, radiation dose was kept as low as reasonably achievable to obtain optimal diagnostic quality images. DICOM format image data is av ailable electronically for review and comparison. FINDINGS: There is dilatation of the right renal collecting system and proximal right ureter. Th is appears to be distended to the level of the pelvic inlet. There is vague soft tissue density in t his region. A stone is not seen. There is retroperitoneal adenopathy throughout the pericaval, aorto caval and periaortic regions at the level of the renal vessels and down to the aortic bifurcation. T here is a 3.9 cm low density mass in the posterior left mid kidney. This is nonspecific on this nonc ontrast CT examination. It likely represents a cyst. The liver, pancreas and adrenal glands are normal. Calcified granulomas are seen in the spleen. Ather osclerotic calcifications are seen throughout the arterial system. No aneurysm is seen. There are s ome lymph nodes seen in the common iliac regions bilaterally. There does appear to be some bladder w all thickening along the posterior right lateral aspect of the urinary bladder. The distal right ure ter is seen in the pelvis and is thickened. The left ureter is not seen. There are colonic diverticula in the sigmoid region. The bowel is otherwise unremarkable. There is a 0.8 cm nodule seen in the left lower lobe. This was present on a prior CT of the chest. There is so me chronic appearing interstitial change seen at the lung bases. There are some calcifications seen at the left pleura. There is degenerative change in the lumbar spine. There is a nonspecific area o f focal sclerosis at the L4 vertebral body and at the superior right acetabular region. These are no nspecific. CONCLUSION: 1. Right hydronephrosis. There appears to be soft tissue density at the level of the pelvic inlet rangel und the right ureter. There also appears to be adenopathy throughout the retroperitoneum. The more distal aspect of the right ureter is also thickened. There is thickening of the posterior lateral ri ght aspect of the urinary bladder. These changes are concerning for neoplasm involving the bladder an d potentially the right ureter. 2. 3.9 cm low density mass at the left kidney. This is nonspecific. This should be further evaluated with a contrast enhanced study or ultrasound examination at some point. 3. Colonic diverticula in the sigmoid colon and the descending colon. 4. Stable 8 mm pulmonary nodule in the left lower lobe. 5. At least two areas of small focal sclerosis at the L4 vertebral body and at the right superior venkata tabular region. These are nonspecific. They could represent benign finding such as bone islands. Sc lerotic bone lesions could have a similar appearance, however. Dwight Wilson MD on February 28, 2017 at 22:56 Board Certified Radiologist. This report was verified electronically.
[2017-02-28 23:45] VITALS: BP 117/57; PULSE 95; RESP 18; O2SAT 96
[2017-03-01] MEDS ORDERED: HYDR-3533 PO
[2017-03-01] MEDS ORDERED: ZOFR4TAB3 SL
== END 2017-03-01 00:12 | disposition home or self-care (01) ==
LOC: PHED 20:48
DX: N13.4 Hydroureter (principal); C61 Malignant neoplasm of prostate
CPT/HCPCS: 74176; 80053; 85025; 96361; 96374; 96375; 99285; J2270; J2405; J7030

== ENCOUNTER 2017-07-17 20:38 | Inpatient (IN) | payer OTHER, MEDICARE ==
[~2017-07-17] VITALS: Ht 165.1 cm; Wt 111.0 kg
[~2017-07-17 20:38] MED LIST changes: +HYDR-3533 PO; +VITA100018 PO; -VITA10003 PO; +ZOFR4TAB3 SL
[2017-07-17 21:10] VITALS: BP 88/54; PULSE 114; RESP 20; TEMP 98.4; O2SAT 75
[2017-07-17] MEDS ORDERED: SODIUM CHLOR 0.9% 1000 ML INJ 1,000 ML IV SCH (21:27)
[2017-07-17] MEDS ORDERED: FAMOTIDINE 20 MG/2 ML VIAL IV PUSH ONE (21:30)
--- NOTE | 2017-07-17 21:47 | PD ---
HPI Chief Complaint: GI Complaint Time Seen by Provider: 21:27 Travel History International Travel<30 days: No Contact w/Intl Traveler<30days: No Traveled to known affect area: No History of Present Illness HPI 76-year-old male complains of generalized malaise and weakness, nausea vomiting diarrhea. Patient states that his symptoms started 4 days ago. Patient states that he has poor appetite for the past 4 days. Patient denies any fever chills. Patient denies any headache. Patient denies any chest pain or shortness of breath. Patient states that he has intermittent abdominal cramping. Patient denies any blood or mucus in the stool. Patient denies any dysuria or frequency. Patient denies any back pain. Patient has history of prostate cancer on chemotherapy. Patient has history of COPD on home O2. Patient contacted his physician 2 days ago an was advised to take Imodium without much relief of the diarrhea. Patient also has history of CHF. PFSH Past Medical History Arthritis: Yes (KNEES) Cancer: Yes (PROSTATE) Cardiovascular Problems: Yes Chemotherapy: Yes Congestive Heart Failure: Yes COPD: Yes Coronary Artery Disease: No Diabetes: No Endocrine: No GERD: Yes Genitourinary: No Hypertension: Yes Immune Disorder: No Musculoskeletal: No Neurologic: No Psychiatric: No Reproductive: No Respiratory: Yes Immunizations Current: Yes Thyroid Disease: No Past Surgical History AICD: No Joint Replacement: No Oral Surgery: Yes (TEETH EXTRACTION) Pacemaker: No Tonsillectomy: Yes Other Surgery: Yes Social History Alcohol Use: Yes (OCC) Tobacco Use: No (QUIT JUL 2016) Substance Use: No Allergies-Medications (Allergen,Severity, Reaction): Coded Allergies: No Known Allergies (Verified Allergy, Unknown, 07/17/17) Reported Meds & Prescriptions Reported Meds & Active Scripts Active Zofran Odt (Ondansetron Odt) 4 Mg Tab 4 Mg SL Q6HR PRN Symbicort Inh (Budesonide/Formoterol Fumarate) 160-4.5 Mcg/Act Aero 2 Puff INH Q12HR Potassium Chloride Microencaps 20 Meq Tab 20 Meq PO DAILY Coreg (Carvedilol) 6.25 Mg Tab 6.25 Mg PO Q12HR Lasix (Furosemide) 40 Mg Tab 40 Mg PO DAILY Nebulizer 1 Mis Mis 1 Ea .ROUTE DIRECTED Oxygen tank (Oxygen) 1 Ea Tank 2 Liter LAZ.CANULA CONTINUOUS Oxygen Concentrator Portable Gaseous 2 L/min via Nasal Cannula Continuous For 99 months Spiriva Respimat Inh (Tiotropium Inh) 1.25 Mcg/Act Aero 2 Puff INH DAILY 1.25 mcg = 1 inhalation Duoneb (Ipratropium-Albuterol Neb) 0.5-2.5 Mg/3 Ml Neb 1 Nebule INH Q4HR NEB Ventolin Hfa 18 GM Inh (Albuterol Sulfate) 90 Mcg/Act Aer 2 Puff INH Q4H PRN Reported Zytiga (Abiraterone) 500 Mg Tablet 500 Mg PO BID Vitamin D3 (Cholecalciferol) 1,000 Unit Tab 1,000 Units PO DAILY Omeprazole 10 Mg Cap 10 Mg PO DAILY Allopurinol 100 Mg Tab 100 Mg PO DAILY Enalapril (Enalapril Maleate) 20 Mg Tab 20 Mg PO DAILY Review of Systems General / Constitutional: No: Fever Eyes: No: Visual changes HENT: No: Headaches Cardiovascular: No: Chest Pain or Discomfort Respiratory: No: Shortness of Breath Gastrointestinal: Positive: Nausea, Vomiting, Diarrhea, Abdominal Pain Genitourinary: No: Dysuria Musculoskeletal: No: Pain Skin: No Rash Neurologic: No: Weakness Psychiatric: No: Depression Endocrine: No: Polydipsia Hematologic/Lymphatic: No: Easy Bruising Physical Exam Narrative GENERAL: Well-nourished, well-developed patient. SKIN: Focused skin assessment warm/dry. HEAD: Normocephalic. EYES: No scleral icterus. No injection or drainage. Oral mucous membrane is dry. NECK: Supple, trachea midline. No JVD or lymphadenopathy. CARDIOVASCULAR: Mild tachycardia rate and rhythm without murmurs, gallops, or rubs. RESPIRATORY: Breath sounds equal bilaterally. No accessory muscle use. GASTROINTESTINAL: Abdomen soft, non-tender, nondistended. MUSCULOSKELETAL: No cyanosis. Patient has +1-+2 pitting edema lower extremity. BACK: Nontender without obvious deformity. No CVA tenderness. Neurologic exam normal. Data Data Last Documented VS Vital Signs Date Time Temp Pulse Resp B/P (MAP) Pulse Ox O2 Delivery O2 Flow Rate FiO2 07/17/17 22:52 20 07/17/17 22:30 111 106/46 (66) 96 07/17/17 21:10 98.4 Orders Orders Complete Blood Count With Diff (07/17/17 21:27) Comprehensive Metabolic Panel (07/17/17 21:27) Lipase (07/17/17 21:27) Prothrombin Time / Inr (Pt) (07/17/17 21:27) Act Partial Throm Time (Ptt) (07/17/17 21:27) Urinalysis - C+S If Indicated (07/17/17 21:27) Iv Access Insert/Monitor (07/17/17 21:27) Ecg Monitoring (07/17/17 21:27) Oximetry (07/17/17 21:27) Sodium Chlor 0.9% 1000 Ml Inj (Ns 1000 M (07/17/17 21:27) Sodium Chloride 0.9% Flush (Ns Flush) (07/17/17 21:30) Electrocardiogram (07/17/17 21:27) Chest, Single Ap (07/17/17 21:27) Famotidine Inj (Pepcid Inj) (07/17/17 21:30) Blood Culture (07/17/17 21:28) Lactic Acid (07/17/17 21:28) B-Type Natriuretic Peptide (07/17/17 22:54) ^ Infusion (07/17/17 ) Norepinephrine-Dextrose Drip (Levophed-D (07/17/17 23:45) Terbutaline Inj (Brethine Inj) (07/17/17 23:45) Lactic Acid Sepsis Protocol (07/17/17 23:36) Ns + Kcl 20 Meq Inj (Ns + Kcl 20 Meq Inj (07/18/17 00:00) Ns + Kcl Inj (07/18/17 00:00) Labs Laboratory Tests Test 07/17/17 21:45 07/17/17 21:48 White Blood Count 6.4 TH/MM3 Red Blood Count 3.80 MIL/MM3 Hemoglobin 12.0 GM/DL Hematocrit 37.1 % Mean Corpuscular Volume 97.6 FL Mean Corpuscular Hemoglobin 31.6 PG Mean Corpuscular Hemoglobin Concent 32.4 % Red Cell Distribution Width 15.5 % Platelet Count 224 TH/MM3 Mean Platelet Volume 8.4 FL Neutrophils (%) (Auto) 81.6 % Lymphocytes (%) (Auto) 5.1 % Monocytes (%) (Auto) 11.7 % Eosinophils (%) (Auto) 1.2 % Basophils (%) (Auto) 0.4 % Neutrophils # (Auto) 5.3 TH/MM3 Lymphocytes # (Auto) 0.3 TH/MM3 Monocytes # (Auto) 0.7 TH/MM3 Eosinophils # (Auto) 0.1 TH/MM3 Basophils # (Auto) 0.0 TH/MM3 CBC Comment DIFF FINAL Differential Comment Prothrombin Time 10.2 SEC Prothromb Time International Ratio 1.0 RATIO Activated Partial Thromboplast Time 26.7 SEC Blood Urea Nitrogen 59 MG/DL Creatinine 3.90 MG/DL Random Glucose 97 MG/DL Total Protein 7.1 GM/DL Albumin 2.9 GM/DL Calcium Level 8.7 MG/DL Alkaline Phosphatase 165 U/L Aspartate Amino Transf (AST/SGOT) 14 U/L Alanine Aminotransferase (ALT/SGPT) 10 U/L Total Bilirubin 0.8 MG/DL Sodium Level 133 MEQ/L Potassium Level 3.1 MEQ/L Chloride Level 96 MEQ/L Carbon Dioxide Level 26.3 MEQ/L Anion Gap 11 MEQ/L Estimat Glomerular Filtration Rate 15 ML/MIN B-Type Natriuretic Peptide 130 PG/ML Lipase 145 U/L Lactic Acid Level 1.4 mmol/L MDM Medical Decision Making Medical Screen Exam Complete: Yes Emergency Medical Condition: Yes Interpretation(s) Last Impressions Chest X-Ray 07/17/[id number] Signed Impressions: Service Date/Time: Monday, July 17, 2017 21:30 - CONCLUSION: Cardiomegaly with pulmonary vascular engorgement. A subtle parenchymal density within the left lung base likely related to early intraalveolar edema. Pedro Spear Jr., MD CBC WBC 6.4. Hemoglobin 12.0 hematocrit 37.1. 81 neutrophils. Sodium 131. Potassium 3.1. BUN 59. Creatinine 3.9. Lactic acid 1.4. Differential Diagnosis Differential diagnosis including gastroenteritis, dehydration, electrolyte imbalance, sepsis. Narrative Course 76-year-old male with persistent nausea vomiting diarrhea and poor appetite. Normal saline solution 1 L IV bolus. Levophed drip started To keep MAP above 65. Normal saline solution with 20 KCl per liter at 70 cc an hour. KCl 20 mEq IV given. Critical Care Narrative Aggregate critical care time was 60 minutes. Time to perform other separately billable procedures was not included in the critical care time. My time did not include minutes spent treating any other patients simultaneously or on activities that did not directly contribute to the patient's treatment. The services I provided to this patient were to treat and/or prevent clinically significant deterioration that could result in: I provided critical care services requiring my management, as noted below: Chart data review, documentation time, medication orders and management, vital sign assessments/reviewing monitor data, ordering and reviewing lab tests, ordering and interpreting/reviewing x-rays and diagnostic studies, care of the patient and discussion of the patient with the admitting physicians. Procedures Procedure Narrative CENTRAL VENOUS LINE: The site was prepped with Betadine and sterilely draped. It was infiltrated with 1% lidocaine plain. The deep vein was cannulated using normal Seldinger technique. A triple lumen central line was placed in the right femoral vein site and secured with simple interrupted suture. The site was sterilely dressed. The patient tolerated the procedure well. Diagnosis Primary Impression: Severe dehydration Additional Impressions: Gastroenteritis Hypokalemia Hyponatremia Acute renal failure superimposed on stage 4 chronic kidney disease Qualified Codes: N17.9 - Acute kidney failure, unspecified; N18.4 - Chronic kidney disease, stage 4 (severe) Admitting Information Admitting Physician Requests: Enoc Mckeon MD Jul 17, 2017 21:47
--- NOTE | 2017-07-17 21:48 | RADRPT ---
EXAM DATE/TIME: 07/17/2017 21:30 [facility] COMPARISON: CHEST SINGLE AP, July 26, 2016, 11:00. INDICATIONS : Shortness of breath. MEDICAL HISTORY : Carcinoma, pancreas. Chronic obstructive pulmonary disease. Gastroesophageal reflux disease. SURGICAL HISTORY : None. ENCOUNTER: Initial ACUITY: 1 day PAIN SCORE: 0/10 LOCATION: Bilateral chest FINDINGS: A single portable frontal view the chest shows cardiomegaly with pulmonary vascular engorgement. A va stephanie parenchymal consolidation involving the left lung base. Right lung is clear. No effusions. Elevat ion left hemidiaphragm. Degenerative thoracic spine. CONCLUSION: Cardiomegaly with pulmonary vascular engorgement. A subtle parenchymal density within the left lung b ase likely related to early intraalveolar edema. Pedro Spear Jr., MD on July 17, 2017 at 21:45 Board Certified Radiologist. This report was verified electronically.
[2017-07-17 21:52] VITALS: BP 91/52; PULSE 108; RESP 20; O2SAT 97
[2017-07-17 21:57] LABS: AUTOMATED NEUTROPHIL # 5.3 TH/MM3 (1.8-7.7); BASOPHIL % 0.4 % (0.0-2.0); EOSINOPHIL # 0.1 TH/MM3 (0-0.4); EOSINOPHIL % 1.2 % (0.0-4.0); HEMATOCRIT 37.1 % (39.0-51.0); LYMPH % 5.1 % (9.0-44.0); LYMPHOCYTE # 0.3 TH/MM3 (1.0-4.8); MEAN CELL VOLUME 97.6 FL (80.0-100.0); MEAN CORPUSCULAR HEMOGLOBIN 31.6 PG (27.0-34.0); MEAN CORPUSCULAR HGB CONC 32.4 % (32.0-36.0); MEAN PLATELET VOLUME 8.4 FL (7.0-11.0); MONO % 11.7 % (0.0-8.0); MONOCYTE # 0.7 TH/MM3 (0-0.9); NEUT % 81.6 % (16.0-70.0); PLATELET COUNT 224 TH/MM3 (150-450); RED CELL DISTRIBUTION WIDTH 15.5 % (11.6-17.2); WHITE BLOOD COUNT 6.4 TH/MM3 (4.0-11.0)
[2017-07-17 22:04] LABS: CHLORIDE 96 MEQ/L (98-107); SODIUM (NA) 133 MEQ/L (136-145)
[2017-07-17 22:07] LABS: CALCIUM 8.7 MG/DL (8.5-10.1)
[2017-07-17 22:08] LABS: ALBUMIN 2.9 GM/DL (3.4-5.0); BICARBONATE 26.3 MEQ/L (21.0-32.0); BLOOD UREA NITROGEN 59 MG/DL (7-18); GLUCOSE,RANDOM 97 MG/DL (74-106); LIPASE 145 U/L (73-393)
[2017-07-17 22:09] LABS: PROTHROMBIN TIME - PATIENT 10.2 SEC (9.8-11.6)
[2017-07-17 22:11] LABS: ALT (GPT) 10 U/L (12-78); AST (GOT) 14 U/L (15-37); GLOMERULAR FILTRATION RATE 15 ML/MIN (>89)
[2017-07-17 22:13] LABS: TOTAL BILIRUBIN ADULT 0.8 MG/DL (0.2-1.0); TOTAL PROTEIN 7.1 GM/DL (6.4-8.2)
[2017-07-17 22:14] LABS: ALKALINE PHOSPHATASE 165 U/L (45-117)
[2017-07-17 22:21] VITALS: BP 106/46; PULSE 110; RESP 20; O2SAT 96
[2017-07-17 22:30] VITALS: BP 106/46; PULSE 111; RESP 18; O2SAT 96
[2017-07-17] MEDS ORDERED: ABIR500T PO (22:43)
[2017-07-17 22:57] VITALS: BP 83/46; PULSE 112; RESP 20; O2SAT 96
[2017-07-17 23:39] VITALS: BP 96/52; PULSE 108; RESP 20; O2SAT 94
[2017-07-17] MEDS ORDERED: TERBUTALINE INJ 1 MG/ML AMP SQ PRN (23:45)
[2017-07-18] VITALS (54 sets, daily range): BP systolic 72–113; BP diastolic 40–56; PULSE 90–108; RESP 10–28; TEMP 98–98.6; O2SAT 88–99
[2017-07-18] MEDS ORDERED: NS + KCL 20 MEQ INJ 1,000 ML IV SCH ×2
[2017-07-18] MEDS ORDERED: POTASSIUM CHLOR 20 MEQ PREMIX 100 ML IV ONE
[2017-07-18 01:27] LABS: BLOOD, URINE NEG (NEG); GLUCOSE,URINE NEG (NEG); KETONE, URINE TRACE mg/dL (NEG); NITRITE,URINE NEG (NEG); URINE LEUKOCYTE ESTERASE NEG (NEG)
[2017-07-18 01:29] LABS: BILIRUBIN, URINE NEG (NEG)
[2017-07-18 01:30] LABS: URINE COLOR AMBER (YELLW/STRAW)
[2017-07-18 01:32] LABS: AMORPHOUS SEDIMENT, URINE SMALL; RBC, URINE 0-2 /hpf (0-3); SQUAMOUS EPITHELIAL CELL URINE 0-5 /hpf (0-5); WBC, URINE 0-2 /hpf (0-5)
[2017-07-18] MEDS ORDERED: CHLORHEXIDINE GLUCONATE 2 % 1 PACK (2 CLOTHS)(extra cloths) TOPICAL PRN (01:45)
[2017-07-18] MEDS: NOREPINEPHRINE-DEXTROSE DRIP 250 ML IV PRN ×2 (02:14→15:19)
[2017-07-18] MEDS: CHLORHEXIDINE GLUCONATE 2 % 1 PACK (2 CLOTHS)(taper/protocol) TOPICAL SCH ×2 (04:00→23:27)
[2017-07-18] MEDS ORDERED: SODIUM CHLOR 0.9% 1000 ML INJ 2,000 ML IV SCH (06:45)
[2017-07-18 06:50] LABS: AUTOMATED NEUTROPHIL # 5.2 TH/MM3 (1.8-7.7); BASOPHIL % 0.3 % (0.0-2.0); EOSINOPHIL # 0.1 TH/MM3 (0-0.4); EOSINOPHIL % 1.5 % (0.0-4.0); HEMOGLOBIN 10.5 GM/DL (13.0-17.0); LYMPH % 8.7 % (9.0-44.0); LYMPHOCYTE # 0.6 TH/MM3 (1.0-4.8); MEAN CELL VOLUME 96.4 FL (80.0-100.0); MEAN CORPUSCULAR HEMOGLOBIN 30.8 PG (27.0-34.0); MEAN CORPUSCULAR HGB CONC 31.9 % (32.0-36.0); MEAN PLATELET VOLUME 8.1 FL (7.0-11.0); MONO % 14.2 % (0.0-8.0); NEUT % 75.3 % (16.0-70.0); PLATELET COUNT 223 TH/MM3 (150-450); RED BLOOD COUNT 3.42 MIL/MM3 (4.50-5.90); RED CELL DISTRIBUTION WIDTH 15.8 % (11.6-17.2); WHITE BLOOD COUNT 6.9 TH/MM3 (4.0-11.0)
[2017-07-18 06:58] LABS: CHLORIDE 99 MEQ/L (98-107); SODIUM (NA) 136 MEQ/L (136-145)
[2017-07-18 07:02] LABS: ALBUMIN 2.5 GM/DL (3.4-5.0); BICARBONATE 22.7 MEQ/L (21.0-32.0); BLOOD UREA NITROGEN 58 MG/DL (7-18); CALCIUM 8.2 MG/DL (8.5-10.1); GLUCOSE,RANDOM 99 MG/DL (74-106)
[2017-07-18 07:05] LABS: ALT (GPT) 9 U/L (12-78); AST (GOT) 11 U/L (15-37); GLOMERULAR FILTRATION RATE 17 ML/MIN (>89)
[2017-07-18 07:07] LABS: TOTAL BILIRUBIN ADULT 0.6 MG/DL (0.2-1.0); TOTAL PROTEIN 6.1 GM/DL (6.4-8.2)
[2017-07-18 07:08] LABS: ALKALINE PHOSPHATASE 139 U/L (45-117)
[2017-07-18 07:10] LABS: TROPONIN I 0.04 NG/ML (0.02-0.05)
[2017-07-18] MEDS ORDERED: MISCELLANEOUS NURSING INFORMATION XX SCH (07:15)
[2017-07-18] MEDS ORDERED: CHLORHEXIDINE GLUCONATE 2 % 1 PACK (2 CLOTHS) TOP PRN (07:15)
[2017-07-18 08:03] LABS: MAGNESIUM 2.3 MG/DL (1.5-2.5)
[2017-07-18 08:07] LABS: PHOSPHORUS 3.8 MG/DL (2.5-4.9)
[2017-07-18] MEDS: RESP: ALBUTEROL 2.5 MG/IPRATROPIUM 0.5 MG NEB (SCH) INH ×5 (08:23→23:08)
--- NOTE | 2017-07-18 08:46 | MH ---
cc: JA GOLDBERG DATE OF ADMISSION: 07/18/2017 1938. HISTORY OF PRESENT ILLNESS The patient is as 76-year-old male with past medical history of CHF, COPD on 2 liters home oxygen, gastroesophageal reflux disease, arthritis, who presented to [facility] with 4-day history of poor appetite associated with intractable nausea, vomiting and diarrhea. The patient also reported abdominal cramps. He denied any blood or mucus in the stool. Most of the history was obtained from reviewing medical records as the patient is a poor historian. He denies any chest pain, shortness of breath, however he reports mild edema of his lower extremities. The patient denies any fever, chills, cough or any constitutional symptoms. Upon arrival to the ED he was hypertensive with systolic blood pressure 80s to 90s and afebrile. His laboratory data is significant for acute renal failure with a BUN of 59, creatinine of 3.90 and hyperkalemic with potassium level of 3.1. There is no evidence of any fever or leukocytosis. His lactic acid level measured at 1.4 and on repeat at midnight was 0.8. He was given 1 liter of normal saline in the ED and started on Levophed. Right femoral central line was placed by the ED physician. His labs this morning showed some improvements of his renal function with a creatinine 3.50 from 3.9. The patient is awake, alert on 2 liters oxygen with saturation of 94%. His current blood pressure is 105/53 with a MAP of 77 on Levophed. A chest x-ray in the ED showed cardiomegaly with pulmonary vascular engorgement. PAST MEDICAL HISTORY Significant for: 1. COPD on 2 liters home oxygen. 2. Prostate cancer. 3. CHF. 4. Arthritis. 5. Hypertension. PAST SURGICAL HISTORY Previous teeth extraction. SOCIAL HISTORY Nonsmoker, nondrinker. ALLERGIES NO KNOWN DRUG ALLERGIES. FAMILY HISTORY The patient denies any family history of heart or lung disease. MEDICATIONS Reported medications at home include: 1. Vitamin D3. 2. Omeprazole. 3. Allopurinol. 4. Enalapril. 5. Lasix. 6. Coreg. 7. Symbicort. REVIEW OF SYSTEMS As per HPI. The rest of the review of systems is limited as the patient is a poor historian. PHYSICAL EXAMINATION GENERAL: A 76-year-old male lying in bed, in no acute distress. VITAL SIGNS: Temperature 98.0, pulse of 99, blood pressure 105/53 with a MAP 77, saturation 94% on 2 liters oxygen. HEENT: Atraumatic, normocephalic. Pupils equal, round, reactive to light and accommodation. Extraocular muscles intact. Conjunctivae pink. Nonicteric sclerae. Oral mucosa within normal. Dry mucous membranes noted. NECK: Supple. No JVD, adenopathy or thyromegaly. Trachea midline. CARDIOVASCULAR: Regular rate and rhythm. Normal S1-S2. No murmurs, rubs or gallops noted. PULMONARY: Bilateral equal air entry. No rales or wheezing. ABDOMEN: Soft, nontender, no distension. Positive bowel sounds. EXTREMITIES: No cyanosis, clubbing. Trace edema. NEURO: No focal sensory deficit. LABORATORY DATA Sodium 136, potassium 3.1, chloride 99, CO2 22, BUN 58, creatinine 3.5, glucose 99, lactic acid 0.8, total bilirubin 0.6, AST 11, ALT 9. WBC 6.9, hemoglobin 10.5, hematocrit 33, platelet count 223, INR 1, PTT 10.2, PTT 26.7. Urinalysis negative for leukocyte esterase, nitrite. IMAGING STUDIES Chest x-ray showed cardiomegaly with pulmonary vascular engorgement. IMPRESSION 1. Respiratory insufficiency. 2. Hypotension. 3. Dehydration. 4. Intractable nausea, vomiting. 5. Acute renal failure secondary to above. 6. Hypokalemia. 7. Anemia. 8. COPD on 2 liters home oxygen. 9. History of CHF. RECOMMENDATIONS 1. Monitor neuro status and avoid any sedatives. 2. Continue with oxygen and maintain sats above 92%. 3. Bronchodilators in the form of DuoNeb q. 4 plus q. 2 p.r.n. for shortness of breath. Will resume Symbicort 160/4.5 two puffs q. 12. 4. Continue to wean off Levophed. Monitor heart rate and blood pressure closely and maintain MAP greater than 65 mmHg. His lactic acid level measured at 0.8. Will hold antihypertensive meds for now. Will hold enalapril, Coreg and Lasix. He had an echocardiogram in July of 2016 which showed an ejection fraction of 55%. 5. His hypotension is likely secondary to dehydration and nausea, vomiting and diarrhea. 6. Monitor renal function, I&O's and avoid nephrotoxins. Will check renal ultrasound and change IV fluids to D5 NS at 100 mL an hour. In addition will give 2 liters bolus of normal saline. Of note, the patient received only 1 liter NS in the ED. 7. Start p.o. heart healthy diet and place on Pepcid for GI prophylaxis. 8. Monitor for signs of infections which include fever and WBC. There is no evidence of any infectious process. Follow up on blood cultures from last night. In addition, will send stool for ova and parasite and place on empiric antibiotics, Flagyl 500 q. 8 for now. 9. Monitor CBC. 10. Place on sliding scale insulin with Accu-Chek if needed for glycemic control. 11. GI prophylaxis with Pepcid and DVT prophylaxis with SCDs and heparin subcu. 12. Further recommendations will be based on hospital course. 13. Right femoral central line was placed by the ED physician. MD FRANCISCA Rincon/NISHA /7:16 AM /8:12 AM
[2017-07-18] MEDS: POTASSIUM CHLOR 20 MEQ PREMIX 100 ML IV SCH ×2 (09:30→13:46)
[2017-07-18] MEDS: metroNIDAZOLE 500 MG INJ 100 ML IV SCH ×3 (09:31→23:27)
--- NOTE | 2017-07-18 09:33 | RADRPT ---
EXAM DATE/TIME: 07/18/2017 08:31 [facility] COMPARISON: No previous studies available for comparison. EXTERNAL COMPARISON : [facility], US KIDNEY, BILATERAL, May 10, 2017 INDICATIONS : Acute kidney injury. MEDICAL HISTORY : CHF. Hypertension. COPD. GERD. Prostate cancer. SURGICAL HISTORY : Colonoscopy. ENCOUNTER: Initial ACUITY: 1 day PAIN SCORE: 4/10 LOCATION: Bilateral flank MEASUREMENTS: RIGHT KIDNEY: 10.5 x 5.2 x 6.3 cm LEFT KIDNEY: 11.7 x 6.5 x 7.8 cm FINDINGS: RIGHT KIDNEY: The examination demonstrates cortical thinning and moderate hydronephrosis. No focal masses seen. The re is dilation of the proximal right ureter as well. LEFT KIDNEY: The examination demonstrates moderate hydronephrosis and cortical thinning. Note is also made of scat tered simple cysts. The largest measures 2.9 x 2.5 cm. No stones are seen. BLADDER: Within normal limits given the degree of distension. CONCLUSION: 1. Moderate hydronephrosis and cortical thinning bilaterally. Michael Jaquez MD on July 18, 2017 at 9:29 Board Certified Radiologist. This report was verified electronically.
[2017-07-18] MEDS: DEXT 5%-NACL 0.9% 1000 ML INJ 1,000 ML IV SCH ×2 (09:34→19:25)
[2017-07-18] MEDS: FAMOTIDINE 20 MG/2 ML VIAL IV PUSH SCH ×2 (09:37→20:07)
[2017-07-18] MEDS: HEPARIN SODIUM - SQ 10,000 UNITS/ML VIAL SQ SCH ×2 (09:38→20:06)
[2017-07-18] MEDS: BUDESONIDE-FORMOTEROL 160/4.5 MCG INHALER INH SCH ×2 (10:49→20:06)
[2017-07-18 13:50] LABS: BICARBONATE 24.3 MEQ/L (21.0-32.0); CALCIUM 7.8 MG/DL (8.5-10.1)
[2017-07-18 13:54] LABS: CREATININE 3.3 MG/DL (0.60-1.30)
[2017-07-18] MEDS ORDERED: ONDANSETRON HCL 4 MG/2 ML VIAL IV PUSH PRN (16:00)
[2017-07-18] MEDS ORDERED: SODIUM CHLOR 0.9% 1000 ML INJ 1,000 ML IV ONE (16:00)
[2017-07-18] MEDS ORDERED: LOPERAMIDE HCL 2 MG CAP PO PRN (16:00)
[2017-07-18] MEDS ORDERED: POTASSIUM CHLORIDE INJ 40 MEQ in SODIUM CHLORID 0.9% 500 ML INJ 500 ML IV-CENTRAL ONE (17:00)
[2017-07-18] MEDS: HYDROCORTISONE 10 MG TAB PO SCH (20:06)
--- NOTE | 2017-07-18 20:50 | MB ---
cc: IMAN KO MD DATE OF CONSULTATION 07/18/[address] Calvillo REASON FOR CONSULTATION Oncology is consulted to render opinion on patient with metastatic prostate cancer. HISTORY OF PRESENT ILLNESS The patient is a 76-year-old male who presented to the emergency room with complaint of decreased appetite, nausea, vomiting, diarrhea, abdominal cramps for the last four days. In the emergency room, he was noted to be hypotensive and tachycardiac. He appeared to be dehydrated. He was admitted to the Intensive Care Unit. He was also noted to have worsening renal failure. The patient is not a very good historian. His is at the bedside and she also cannot remember any details about treatment of the patient's prostate cancer. Apparently, he was diagnosed with prostate cancer about a year ago. He is under the care of Dr. Tinajero. He was started on Lupron injection every three months. His last injection was about a month ago. He stated that about a month and a half ago he was started on Zytiga with prednisone. He denies any fever or chills. He denies any chest pain. He has chronic obstructive pulmonary disease and on chronic oxygen but denies change in his pulmonary symptom. He denies any GI bleeding. He has left flank pain. He denies any urinary frequency or hematuria. He denies any diarrhea. He denies any bone pain. PAST MEDICAL HISTORY 1. Metastatic prostate cancer. 2. Chronic obstructive pulmonary disease. 3. Congestive heart failure 4. Gastroesophageal reflux disease. 5. Osteoarthritis. PAST SURGICAL HISTORY 1. Teeth extraction 2. Tonsillectomy. FAMILY HISTORY Mother has some sort of cancer. He has two daughters and a son. One of the daughters had a hysterectomy for possible cancer. SOCIAL HISTORY Denies tobacco or alcohol use. Lives with his . ALLERGIES No known drug allergies. MEDICATIONS Current, 1. Pepcid. 2. Heparin. 3. Symbicort. 4. DuoNebs. 5. Flagyl. REVIEW OF SYSTEMS CONSTITUTIONAL: As above. EYES: Negative. ENT: Negative. CARDIOVASCULAR: Denies any chest pressure, palpitation RESPIRATORY: As above. GI: As above. : As above. MUSCULOSKELETAL: Denies any pain HEMATOLOGY: Negative. ENDOCRINE: Negative DERMATOLOGY: Negative. PSYCHIATRIC: Negative. NEUROLOGIC: Negative. PHYSICAL EXAMINATION VITAL SIGNS: Temperature 98.6, blood pressure 85/49, pulse 94 O2 saturation 95%. GENERAL: He is alert and oriented x3 in no acute distress. HEENT: Atraumatic, normocephalic. Pupils equal, round, reactive to light. Extraocular muscles intact. No scleral icterus. Oropharynx dry mucosa. No lesion or thrush. NECK: No thyromegaly. There is a palpable mass in the right supraclavicular area. LYMPHATIC: I could not palpate axillary, inguinal adenopathy. CARDIOVASCULAR: Regular S1 and S2. No murmur. LUNGS: Distant breath sounds. No significant wheezes. ABDOMEN: Soft, nontender. I could not palpate liver or spleen. EXTREMITIES: No cyanosis, clubbing. Trace ankle edema. No calf tenderness. SKIN: No rash or petechiae. Decreased skin turgor. NEUROLOGIC: Nonfocal. LABORATORY DATA WBC 6.9, hemoglobin 10.5, platelet count 223, creatinine 3.3, alkaline phosphatase 139. ASSESSMENT 1. Metastatic prostate cancer. The patient cannot provide specific details of his diagnosis and treatment. Apparently, he was diagnosed about a year ago. He had biopsy of retroperitoneal lymph node on November 20, 2016 which showed metastatic prostate adenocarcinoma. I have also reviewed his radiologic study at [facility]. The patient had a PET scan in August 2016 which showed hypermetabolic adenopathy in the mediastinum, subcarinal, para-aortic, left pelvic and left inguinal area. On October 31, 2016 he had a bone scan which did not show any metastatic disease. CT abdomen and pelvis the same day showed extensive retroperitoneal adenopathy which has increased in size compared to August of 2016 PET scan. There were increased right pelvic and abdominal lymph nodes causing obstruction of right ureter resulting in right hydronephrosis. Most recently, he had a CT of the chest done on July 10 which showed large mediastinal and lower neck lymphadenopathy. There were also scattered small pulmonary nodules which are stable. The subcarinal lymph node and the right paratracheal lymph node measured around 6 cm. On exam, the right supraclavicular adenopathy is palpable and the patient stated that it may have decreased in size since he started taking the pills. He was started on what sounded like Lupron injection about nine months ago. So far, he had three injections and last injection was about month ago. He started Zytiga and prednisone about 1 1/2 months ago. He has been under the care of Dr. Tinajero. He now presented with GI symptom of nausea, vomiting, diarrhea, abdominal pain. He could have a viral illness, but this could also be a side effect of Zytiga. He last took the Zytiga about two days ago. I would recommend holding the Zytiga for now until his symptoms improve and until he has been evaluated by urology. 2. Renal failure. He appeared to have acute on chronic renal failure. He has history of hydronephrosis due to pelvic adenopathy. He has seen Dr. Tinajero and the patient said he was supposed to have a stent placement in August. Urology has been consulted. 3. Nausea, vomiting, diarrhea, abdominal pain. This could be viral illness, but it could also be due to side effect of Zytiga. We will hold Zytiga as above. 4. Dehydration currently on IV fluid. 5. Hypotension likely due to dehydration and possible sepsis. He also has been on prednisone and Zytiga. The Zytiga could cause adrenal insufficiency. I would suggest starting hydrocortisone for now. 6. Chronic obstructive pulmonary disease, oxygen-dependent 7. History of congestive heart failure. 8. Arthritis. RECOMMENDATIONS 1. Reviewed his radiologic study and medical record. 2. Hold Zytiga for now until his symptoms improve and until he has a chance to be evaluated by urology. 3. Start him on hydrocortisone as he may have some degree of adrenal insufficiency. 4. Check PSA 5. Await urology and nephrology evaluation. Thank you, Dr. Calvillo, for asking me to see this patient. MD SARAH Portillo/ /5:39 PM /8:13 PM KANDIS
[2017-07-18] MEDS ORDERED: ABIRATERONE 500 MG PO SCH (21:00)
--- NOTE | 2017-07-18 22:14 | EKG ---
Date Performed: 07/17/2017 Time Performed: 21:39:21 PTAGE: 76 years EKG: SINUS TACHYCARDIA LOW QRS VOLTAGE IN PRECORDIAL LEADS POSSIBLE ANTERIOR MYOCARDIAL INFARCTI ON INFERIOR MYOCARDIAL INFARCTION ABNORMAL ECG PREVIOUS TRACING : 07/26/2016 10.41 Since previous tracing, no significant change noted DOCTOR: Kiko Bustos Interpretating Date/Time 07/18/2017 22:13:39
[2017-07-19] VITALS (61 sets, daily range): BP systolic 75–119; BP diastolic 45–69; PULSE 97–114; RESP 12–31; TEMP 97.9–98.4; O2SAT 88–99
[2017-07-19] MEDS ORDERED: CHLORHEXIDINE GLUCONATE 2 % 1 PACK (2 CLOTHS) TOP SCH (04:00)
[2017-07-19] MEDS: RESP: ALBUTEROL 2.5 MG/IPRATROPIUM 0.5 MG NEB (SCH) INH ×6 (04:13→23:12)
[2017-07-19 05:05] LABS: AUTOMATED NEUTROPHIL # 5.9 TH/MM3 (1.8-7.7); BASOPHIL % 0.1 % (0.0-2.0); EOSINOPHIL # 0.1 TH/MM3 (0-0.4); EOSINOPHIL % 0.9 % (0.0-4.0); HEMATOCRIT 31.9 % (39.0-51.0); HEMOGLOBIN 10.1 GM/DL (13.0-17.0); LYMPH % 6.8 % (9.0-44.0); LYMPHOCYTE # 0.5 TH/MM3 (1.0-4.8); MEAN CELL VOLUME 97.1 FL (80.0-100.0); MEAN CORPUSCULAR HEMOGLOBIN 30.8 PG (27.0-34.0); MEAN CORPUSCULAR HGB CONC 31.7 % (32.0-36.0); MEAN PLATELET VOLUME 9.4 FL (7.0-11.0); MONO % 9.1 % (0.0-8.0); MONOCYTE # 0.6 TH/MM3 (0-0.9); NEUT % 83.1 % (16.0-70.0); PLATELET COUNT 205 TH/MM3 (150-450); RED BLOOD COUNT 3.28 MIL/MM3 (4.50-5.90); RED CELL DISTRIBUTION WIDTH 15.9 % (11.6-17.2); WHITE BLOOD COUNT 7.1 TH/MM3 (4.0-11.0)
[2017-07-19 05:16] LABS: BICARBONATE 23.9 MEQ/L (21.0-32.0); CALCIUM 7.6 MG/DL (8.5-10.1); MAGNESIUM 2.2 MG/DL (1.5-2.5)
[2017-07-19 05:19] LABS: CREATININE 2.9 MG/DL (0.60-1.30)
[2017-07-19 05:22] LABS: PHOSPHORUS 2.1 MG/DL (2.5-4.9)
[2017-07-19] MEDS: NOREPINEPHRINE-DEXTROSE DRIP 250 ML IV PRN ×3 (05:33→23:25)
[2017-07-19] MEDS: HYDROCORTISONE 10 MG TAB PO SCH ×2 (07:00→19:00)
[2017-07-19] MEDS: metroNIDAZOLE 500 MG INJ 100 ML IV SCH (08:00)
[2017-07-19] MEDS: BUDESONIDE-FORMOTEROL 160/4.5 MCG INHALER INH SCH ×2 (08:07→20:43)
[2017-07-19] MEDS: FAMOTIDINE 20 MG/2 ML VIAL IV PUSH SCH ×2 (08:07→20:44)
[2017-07-19] MEDS: HEPARIN SODIUM - SQ 10,000 UNITS/ML VIAL SQ SCH ×2 (08:07→20:45)
--- NOTE | 2017-07-19 11:44 | MB ---
cc: SHERRON GALLO MD DATE OF CONSULTATION: 07/19/2017 REASON FOR CONSULTATION: Elevated BUN and creatinine for evaluation. HISTORY OF PRESENT ILLNESS This is a 76-year-old male with past medical history of ischemic heart disease, congestive heart failure, prostate cancer, hypertension, COPD of arthritis, chronic kidney disease who was admitted with. Nausea or vomiting and diarrhea. I was called to see the patient because of elevated BUN and creatinine patient has elevated creatinine in the past and in January of last year his creatinine was 2.5. 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 The patient has this nausea or vomiting and has loose bowel motion before he came in here and states improving now. He does not have any vomiting now mild abdominal cramping did not notice any decrease in the urine output. No history of dysuria, hematuria, no history of taking any nonsteroidal anti-inflammatory drugs. The patient was found to have low blood pressure and he is currently on room of head. PAST MEDICAL HISTORY: 1. Ischemic heart disease 2. Congestive heart failure 3. Hypertension 4. prostate cancer 5. chronic obstructive pulmonary disease 6. osteoarthritis 7. chronic kidney disease. PAST SURGICAL HISTORY History of teeth extraction. REVIEW OF SYSTEMS The patient has generalized weakness, feeling tired, has mild nausea and vomiting is better now has abdominal cramping still has off and on loose bowel motion. No history of dysuria, hematuria, no shortness breath or chest pain. No palpitation. There is a history of fever, not taking any nonsteroidal anti-inflammatory drugs. SOCIAL HISTORY There is no history of smoking or alcoholism. FAMILY HISTORY: Noncontributory. ALLERGIES NO KNOWN DRUG ALLERGIES MEDICATIONS Currently 1. He is on dextrose. 2. Normal saline 84 an hour. 3. DuoNeb nebulizer 4. Cortef 20 mg q. 12-hour. 5. Pepcid 10 mg q 12-hour. 6. Symbicort 2 puffs q. 12-hour. 7. Metronidazole 500 mg IV q.8 h. 8. Norepinephrine as needed PHYSICAL EXAMINATION: IN GENERAL: On examination the patient is awake, alert. He is not in acute distress. VITAL SIGNS: Blood pressure is around 104/57. His systolic drops to 80, some time he still on pressors, temperature is 98.4, oxygen saturation with nasal cannula is 97%. HEAD, EYES, EARS, NOSE, AND THROAT: Pupils are mid constricted. Nonicteric sclera, conjunctiva pale and supple. NECK: Supple. JVD is not elevated. LUNGS: The patient has bilateral decreased air entry with occasional wheezing. HEART: S1, S2, regular rhythm. ABDOMEN: Abdomen is soft lax the slightly distended, nontender. EXTREMITIES: He has mild edema INVESTIGATIONS: Investigation WBC count is 7.1, hemoglobin 10.1, platelet count of 205, neutrophils 83.1%, sodium 38. Potassium 3.6, chloride was six, bicarb 23.9, BUN 45, creatinine 2.9. Calcium 7.6, phosphorus 2.1. Magnesium is 2.2, INR is 1.0. Urinalysis showing that protein is 30. Cultures are all negative so far. IMAGING STUDIES Ultrasound the kidney was done which shows that the patient has moderate hydronephrosis in the left side and cortical thinning. There is scattered simple cyst in the right side. There is a dilatation of the proximal right ureter as well. CT scan of the abdomen and pelvis was done which shows the right hydronephrosis 3.9 cm low density mass in the left kidney. Chest x-ray Was done which shows cardiomegaly and some vascular engorgement. ASSESSMENT/PLAN 1. Chronic kidney disease acute kidney injury 2. History of prostate cancer 3. Nausea or vomiting and diarrhea. 4. Dehydration. 5. Hypotension. 6. Anemia. 7. COPD. The patient has chronic kidney disease and now developed also acute kidney injury. The chronic kidney disease possibly related to hypertensive renovascular disease with acute worsening now could be related to the hypotension with ATN, has a possibility of dehydration and also need to rule out obstructive uropathy since there is hydronephrosis. Blood pressure is stabilizing continued IV hydration and creatinine is slowly improving. Urology has been consulted for the hydronephrosis. To continue antibiotics and avoid any nephrotoxins. Thank you for the consultation. I will follow the patient while he is in the hospital. MD MARCIAL Good/ange /11:15 AM /11:27 AM
[2017-07-19] MEDS: DEXT 5%-NACL 0.9% 1000 ML INJ 1,000 ML IV SCH ×2 (13:14→19:44)
--- NOTE | 2017-07-19 13:56 | PD.CONS ---
[facility] Service Urology Consult Requested By Dr. Calvillo Reason for Consult Bilateral hydronephrosis Primary Care Physician Keo Gallegos MD Diagnosis: History of Present Illness Case of a pleasant 76 year-old gentleman with multiple medical problems including metastatic prostate cancer who is under the care of of Dr. Cristhian Tinajero and being managed with Lupron injections along with Zytiga and prednisone which was started approximately 6 weeks prior to admission. Patient has a known history of hydronephrosis along with elevation of serum creatinine dating back to January 2017. Despite medical management, the patient's metastatic prostate cancer has been progressing. Patient was admitted with symptoms of diminished appetite, nausea, vomiting, diarrhea and abdominal pain that began approximately 4 days prior to admission. Upon arrival to the emergency room, the patient was noted to be hypotensive and tachycardic. Preliminary laboratory studies demonstrated a normal white count and elevation of the serum creatinine measuring 3.9 which has diminished with a current value of 2.9. Patient had a creatinine level of 2.5 back in January 2017. Since being admitted , the patient has had increased urinary output with I V hydration. He denies flank pain or gross hematuria. He has been afebrile. A renal ultrasound study was performed which demonstrated moderate bilateral hydronephrosis. Patient is scheduled to undergo ureteral stent placement in early August with . Review of Systems Constitutional: COMPLAINS OF: Fatigue, Change in appetite (diminished), DENIES : Fever Gastrointestinal: COMPLAINS OF: Abdominal pain, Nausea, Vomiting Except as stated in HPI: all other systems reviewed are Neg Past Family Social History Past Medical History Coronary artery disease Congestive heart failure COPD Prostate cancer Hypertension Arthritis Chronic kidney disease Past Surgical History Dental extraction Status post tonsillectomy Reported Medications Refer to EMR Allergies: Coded Allergies: No Known Allergies (Verified Allergy, Unknown, 07/17/17) Active Ordered Medications Refer to EMR Family History Family history positive for cancer Social History Denies tobacco, alcohol or intravenous drug abuse history Physical Exam Vital Signs Date Time Temp Pulse Resp B/P (MAP) Pulse Ox O2 Delivery O2 Flow Rate FiO2 07/19/17 13:14 101 104/49 07/19/17 11:31 100 12 102/57 (72) 96 07/19/17 11:16 98 12 104/53 (70) 96 07/19/17 11:00 100 12 106/56 (73) 96 07/19/17 10:16 100 18 104/57 (73) 97 07/19/17 10:01 108 07/19/17 10:01 108 25 87/48 (61) 91 07/19/17 09:46 106 31 80/69 (73) 94 18 09:31 106 29 113/59 (77) 95 07/19/17 09:16 112 19 93/63 (73) 93 07/19/17 09:01 108 17 99/55 (70) 93 07/19/17 08:58 108 17 84/45 (58) 94 07/19/17 08:57 110 84/45 07/19/17 08:46 108 17 96/45 (62) 92 07/19/17 08:31 114 29 98/55 (69) 90 07/19/17 08:16 108 17 75/65 (68) 94 07/19/17 08:01 104 17 115/64 (81) 95 07/19/17 08:00 104 07/19/17 07:46 110 18 111/59 (76) 88 07/19/17 07:36 94 Nasal Cannula 3.50 07/19/17 07:31 102 24 119/57 (77) 94 07/19/17 07:16 102 16 112/54 (73) 94 07/19/17 07:01 102 16 106/67 (80) 95 07/19/17 06:00 108 18 109/53 (71) 93 07/19/17 06:00 102 07/19/17 05:33 105 93/51 07/19/17 05:00 104 18 119/54 (75) 93 07/19/17 04:00 102 18 04:00 104 18 101/59 (73) 93 07/19/17 03:00 102 18 94/52 (66) 94 07/19/17 02:00 102 07/19/17 02:00 102 18 102/49 (66) 94 07/19/17 01:00 104 20 91/50 (64) 98 07/19/17 00:00 98.4 104 20 99/51 (67) 94 07/19/17 00:00 102 07/18/17 22:00 104 07/18/17 21:00 108 18 96/48 (64) 94 07/18/17 20:00 102 1/18/18 20:00 98.1 102 18 96/45 (62) 93 07/18/17 19:27 96 Nasal Cannula 2.00 07/18/17 19:00 100 20 90/56 (67) 96 07/18/17 18:00 100 21 105/48 (67) 93 07/18/17 18:00 100 07/18/17 17:00 96 17 104/49 (67) 97 07/18/17 16:00 94 07/18/17 16:00 98.2 94 19 97/54 (68) 94 07/18/17 15:19 96 85/49 07/18/17 15:18 94 21 85/49 (61) 95 07/18/17 15:16 94 16 86/47 (60) 95 07/18/17 15:00 96 16 97/50 (66) 95 07/18/17 14:46 96 17 101/48 (65) 95 07/18/17 14:31 96 16 101/49 (66) 96 07/18/17 14:00 95 07/18/17 14:00 96 17 107/42 (63) 95 Physical Exam GENERAL: This is a well-nourished, well-developed patient, in no apparent distress. SKIN: No rashes, ecchymoses or lesions. Cool and dry. HEAD: Atraumatic. Normocephalic. No temporal or scalp tenderness. EYES: Pupils equal round and reactive. Extraocular motions intact. No scleral icterus. No injection or drainage. ENT: Nose without bleeding, purulent drainage or septal hematoma. Throat without erythema, tonsillar hypertrophy or exudate. Uvula midline. Airway patent. NECK: Trachea midline. No JVD or lymphadenopathy. Supple, nontender, no meningeal signs. GASTROINTESTINAL: Abdomen soft, non-tender, nondistended. No hepato-splenomegaly , or palpable masses. No guarding. GENITOURINARY: Bladder not distended. Joyner catheter draining clear yellow urine. MUSCULOSKELETAL: Extremities without clubbing, cyanosis, or edema. No joint tenderness, effusion, or edema noted. No calf tenderness. Negative Homans sign bilaterally. NEUROLOGICAL: Awake and alert. Cranial nerves II through XII intact. Motor and sensory grossly within normal limits. Five out of 5 muscle strength in all muscle groups. Normal speech. Lab results reviewed: Yes Laboratory Tests Test 07/18/17 18:50 07/18/17 22:20 07/19/17 04:25 Prostate Specific Antigen 155.00 Potassium Level 3.5 3.6 White Blood Count 7.1 Red Blood Count 3.28 Hemoglobin 10.1 Hematocrit 31.9 Mean Corpuscular Volume 97.1 Mean Corpuscular Hemoglobin 30.8 Mean Corpuscular Hemoglobin Concent 31.7 Red Cell Distribution Width 15.9 Platelet Count 205 Mean Platelet Volume 9.4 Neutrophils (%) (Auto) 83.1 Lymphocytes (%) (Auto) 6.8 Monocytes (%) (Auto) 9.1 Eosinophils (%) (Auto) 0.9 Basophils (%) (Auto) 0.1 Neutrophils # (Auto) 5.9 Lymphocytes # (Auto) 0.5 Monocytes # (Auto) 0.6 Eosinophils # (Auto) 0.1 Basophils # (Auto) 0.0 CBC Comment DIFF FINAL Differential Comment Blood Urea Nitrogen 45 Creatinine 2.90 Random Glucose 144 Calcium Level 7.6 Phosphorus Level 2.1 Magnesium Level 2.2 Sodium Level 138 Chloride Level 106 Carbon Dioxide Level 23.9 Anion Gap 8 Estimat Glomerular Filtration Rate 21 Date/Time Source Procedure Growth Status 07/17/17 21:48 Blood Peripheral Aerobic Blood Culture - Preliminary NO GROWTH IN 2 DAYS Resulted 07/17/17 21:48 Blood Peripheral Anaerobic Blood Culture - Preliminary NO GROWTH IN 2 DAYS Resulted 07/18/17 09:40 Stool Stool - Final NO ENTERIC PATHOGENS DETECTED BY PCR... Complete Result Diagram: 07/19/1742407/[id number]/17424 Personally reviewed images: Yes Imaging Last Impressions Renal Ultrasound 07/18/17 0000 Signed Impressions: Service Date/Time: July 08:31 - CONCLUSION: 1. Moderate hydronephrosis and cortical thinning bilaterally. Michael Jaquez MD Chest X-Ray [id number]/17/[id number] Signed Impressions: Service Date/Time: Monday, July 17, 2017 21:30 - CONCLUSION: Cardiomegaly with pulmonary vascular engorgement. A subtle parenchymal density within the left lung base likely related to early intraalveolar edema. Pedro Spear Jr., MD Assessment and Plan Assessment and Plan Urologic impression: #1 metastatic prostate cancer with progression #2 moderate bilateral hydronephrosis of chronic nature likely related to retroperitoneal/pelvic lymphadenopathy as well as possible involvement of the bladder base with the prostate cancer #3 abdominal pain, diarrhea, nausea, vomiting possibly related to side effects from the Zytiga #4 recent worsening of the BUN/creatinine likely related to dehydration Recommendations: #1 no acute urologic intervention indicated at the present time #2 agree with discontinuation of the Zytiga until the GI symptoms radha as recommended by oncology #3 patient advised to keep his follow up with after hospital discharge for electively scheduled ureteral stent placement Dre Richardson MD Jul 19, 2017 13:56
--- NOTE | 2017-07-19 14:39 | PD.ONC.PN ---
Subjective Subjective Remarks Patient seen and examined, vital signs, labs, medications and imaging studies reviewed. Manufacturer'S Service Representative notes reviewed as well. Patient seen in follow-up for his diagnosis of metastatic prostate carcinoma and anemia. Subjectively; the patient reports feeling "better today ". He denies difficulty breathing, chest pain, PND, orthopnea or bleeding. Objective Data Date Time Temp Pulse Resp B/P (MAP) Pulse Ox O2 Delivery O2 Flow Rate FiO2 07/19/17 13:14 101 104/49 07/19/17 11:31 100 12 102/57 (72) 96 07/19/17 11:16 98 12 104/53 (70) 96 07/19/17 11:00 100 12 106/56 (73) 96 07/19/17 10:16 100 18 104/57 (73) 97 07/19/17 10:01 108 07/19/17 10:01 108 25 87/48 (61) 91 07/19/17 09:46 106 31 80/69 (73) 94 07/19/17 09:31 106 29 113/59 (77) 95 07/19/17 09:16 112 19 93/63 (73) 93 07/19/17 09:01 108 17 99/55 (70) 93 07/19/17 08:58 108 17 84/45 (58) 94 07/19/17 08:57 110 84/45 07/19/17 08:46 108 17 96/45 (62) 92 07/19/17 08:31 114 29 98/55 (69) 90 07/19/17 08:16 108 17 75/65 (68) 94 07/19/17 08:01 104 17 115/64 (81) 95 07/19/17 08:00 104 07/19/17 07:46 110 18 111/59 (76) 88 07/19/17 07:36 94 Nasal Cannula 3.50 07/19/17 07:31 102 24 119/57 (77) 94 07/19/17 07:16 102 16 112/54 (73) 94 07/19/17 07:01 102 16 106/67 (80) 95 07/19/17 06:00 108 18 109/53 (71) 93 07/19/17 06:00 102 07/19/17 05:33 105 93/51 07/19/17 05:00 104 18 119/54 (75) 93 07/19/17 04:00 102 07/19/17 04:00 104 18 101/59 (73) 93 07/19/17 03:00 102 18 94/52 (66) 94 07/19/17 02:00 102 07/19/17 02:00 102 18 102/49 (66) 94 07/19/17 01:00 104 20 91/50 (64) 98 07/19/17 00:00 98.4 104 20 99/51 (67) 94 07/19/17 00:00 102 07/18/17 22:00 104 07/18/17 21:00 108 18 96/48 (64) 94 07/18/17 20:00 102 07/18/17 20:00 98.1 102 18 96/45 (62) 93 07/18/17 19:27 96 Nasal Cannula 2.00 07/18/17 19:00 100 20 90/56 (67) 96 07/18/17 18:00 100 21 105/48 (67) 93 07/18/17 18:00 100 07/18/17 17:00 96 17 104/49 (67) 97 07/18/17 16:00 94 07/18/17 16:00 98.2 94 19 97/54 (68) 94 07/18/17 15:19 96 85/49 07/18/17 15:18 94 21 85/49 (61) 95 07/18/17 15:16 94 16 86/47 (60) 95 07/18/17 15:00 96 16 97/50 (66) 95 07/18/17 14:46 96 17 101/48 (65) 95 07/19/17 07/19/17 07/19/17 07:00 15:00 23:00 Intake Total 200 ml Output Total 350 ml Balance -150 ml Result Diagram: 07/19/17 [id number] Laboratory Results Laboratory Tests Test 07/18/17 18:50 07/18/17 22:20 07/19/17 04:25 Prostate Specific Antigen 155.00 NG/ML Potassium Level 3.5 MEQ/L 3.6 MEQ/L White Blood Count 7.1 TH/MM3 Red Blood Count 3.28 MIL/MM3 Hemoglobin 10.1 GM/DL Hematocrit 31.9 % Mean Corpuscular Volume 97.1 FL Mean Corpuscular Hemoglobin 30.8 PG Mean Corpuscular Hemoglobin Concent 31.7 % Red Cell Distribution Width 15.9 % Platelet Count 205 TH/MM3 Mean Platelet Volume 9.4 FL Neutrophils (%) (Auto) 83.1 % Lymphocytes (%) (Auto) 6.8 % Monocytes (%) (Auto) 9.1 % Eosinophils (%) (Auto) 0.9 % Basophils (%) (Auto) 0.1 % Neutrophils # (Auto) 5.9 TH/MM3 Lymphocytes # (Auto) 0.5 TH/MM3 Monocytes # (Auto) 0.6 TH/MM3 Eosinophils # (Auto) 0.1 TH/MM3 Basophils # (Auto) 0.0 TH/MM3 CBC Comment DIFF FINAL Differential Comment Blood Urea Nitrogen 45 MG/DL Creatinine 2.90 MG/DL Random Glucose 144 MG/DL Calcium Level 7.6 MG/DL Phosphorus Level 2.1 MG/DL Magnesium Level 2.2 MG/DL Sodium Level 138 MEQ/L Chloride Level 106 MEQ/L Carbon Dioxide Level 23.9 MEQ/L Anion Gap 8 MEQ/L Estimat Glomerular Filtration Rate 21 ML/MIN Culture Results Microbiology Date/Time Source Procedure Growth Status 07/17/17 21:48 Blood Peripheral Aerobic Blood Culture - Preliminary NO GROWTH IN 2 DAYS Resulted 07/17/17 21:48 Blood Peripheral Anaerobic Blood Culture - Preliminary NO GROWTH IN 2 DAYS Resulted 07/17/17 21:45 Blood Peripheral Aerobic Blood Culture - Preliminary NO GROWTH IN 2 DAYS Resulted 07/17/17 21:45 Blood Peripheral Anaerobic Blood Culture - Preliminary NO GROWTH IN 2 DAYS Resulted 07/18/17 09:40 Stool Stool - Final NO ENTERIC PATHOGENS DETECTED BY PCR... Complete 07/18/17 09:40 Stool Stool Rotavirus Antigen - Final NEGATIVE - ROTAVIRUS ANTIGEN IS ABSEN... Complete Administered Medications Medications (Trade) Dose Ordered Sig/Hayden Route PRN Reason Start Time Stop Time Status Last Admin Dose Admin Norepinephrine Bitartrate 250 ml @ 7.5 mls/hr TITRATE PRN IV Blood pressure management 07/17/17 23:45 07/19/17 13:14 Miscellaneous Information Patient in critical care unit? Ass... [id number] .XX 07/18/17 01:45 07/18/17 01:45 Chlorhexidine Gluconate (Chlorhexidine 2% Cloth) 3 pack DAILY@04 TOPICAL 07/18/17 04:00 07/22/17 04:01 07/18/17 23:27 Famotidine (Pepcid Inj) 10 mg Q12HR IV PUSH 07/18/17 09:00 07/19/17 08:07 Albuterol/ Ipratropium (Duoneb Neb) 1 ampule Q4HR NEB INH 07/18/17 08:00 07/19/17 11:34 Heparin Sodium (Porcine) (Heparin Inj) 5,000 units Q12HR SQ 07/18/17 09:00 07/19/17 08:07 Metronidazole 100 ml @ 100 mls/hr Q8H IV 07/18/17 08:00 07/19/17 08:00 Budesonide/ Formoterol Fumarate (Symbicort 160-4.5 Mcg Inh) 2 puff Q12HR INH 07/18/17 09:00 07/19/17 08:07 Dextrose/Sodium Chloride 1,000 ml @ 84 mls/hr [id number] IV 07/18/17 07:30 07/19/17 13:14 Ondansetron HCl (Zofran Inj) 4 mg Q8HR PRN IV PUSH N/V 07/18/17 16:00 07/18/17 17:34 Hydrocortisone (Cortef) 20 mg Q12H PO 07/18/17 19:00 07/19/17 07:00 Objective Remarks GENERAL: He is alert and oriented x3 in no acute distress. HEENT: Atraumatic, normocephalic. Pupils equal, round, reactive to light. Extraocular muscles intact. No scleral icterus. Oropharynx dry mucosa. No lesion or thrush. NECK: No thyromegaly. There is a palpable mass in the right supraclavicular area. LYMPHATIC: Right supraclavicular lymph node palpable, measuring 2 cm. CARDIOVASCULAR: Regular S1 and S2. No murmur. LUNGS: Distant breath sounds. No significant wheezes. ABDOMEN: Soft, nontender. I could not palpate liver or spleen. EXTREMITIES: No cyanosis, clubbing. Trace ankle edema. No calf tenderness. SKIN: No rash or petechiae. Decreased skin turgor. NEUROLOGIC: Nonfocal. Assessment/Plan Assessment Mr. Reid is a 76-year-old man with a history of metastatic prostate carcinoma ; he is presently on combination systemic therapy with Lupron and Zytiga. His PSA level is 155, he presents to the hospital with complaints of increasing fatigue weakness and difficulty breathing. The patient was noted to be in acute on chronic renal failure, suspected congestive heart failure and hypotension. Plan 1. Prostate carcinoma: PSA levels presently at 155, previous levels not known. Without a trend it would be difficult to determine if the current treatment interventions are beneficial. 2. Renal failure: Renal function improved with IV fluid hydration and placement of Joyner catheter. There is a possibility his renal failure may have been secondary to bladder outflow obstruction given the bilateral hydronephrosis. Continue ongoing care. Fitz Stratton MD Jul 19, 2017 14:39
[2017-07-19] MEDS: ALBUMIN 25% INJ 50 ML IV SCH (16:00)
--- NOTE | 2017-07-19 16:56 | HHI.CCPN ---
Subjective Remarks/Hospital Course The patient is as 76-year-old male with past medical history of CHF, COPD on 2liters home oxygen, gastroesophageal reflux disease, arthritis, who [facility] [place] [facility] with 4-day history of poor appetite associated withintractable nausea, vomiting and diarrhea. The patient also reported abdominalcramps. He denied any blood or mucus in the stool. Most of the history wasobtained from reviewing medical records as the patient is a poor historian. Hedenies any chest pain, shortness of breath, however he reports mild edema of his lower extremities. The patient denies any fever, chills, cough or any constitutional symptoms. Upon arrival to the ED he was hypertensive with systolic blood pressure 80s to 90s and afebrile. His laboratory data is significant for acute renal failure with a BUN of 59, creatinine of 3.90 and hyperkalemic with potassium level of 3.1. There is no evidence of any fever or leukocytosis. His lactic acid level measured at 1.4 and on repeat at midnight was 0.8. He was given 1 liter of normal saline in the ED and started on Levophed. Right femoral central line was placed by the ED physician. His labs this morning showed some improvements of his renal function with a creatinine 3.50 from 3.9. The patient is awake, alert on 2 liters oxygen with saturation of 94%. His current blood pressure is 105/53 with a MAP of 77 on Levophed. A chest x-ray in the ED showed cardiomegaly with pulmonary vascular engorgement. 07/19/17: Patient seen in follow up on septic shock, acute renal failure Patient states that he is doing well. Discussed his care with him, daughter and . Patient is doing much better. Workup is by EKG anything significant for infected source. Patient is still on Levophed at 10 mics. We'll continue to wean Levophed at this time. Patient remains afebrile. No acute events overnight. Objective Vital Signs Date Time Temp Pulse Resp B/P (MAP) Pulse Ox O2 Delivery O2 Flow Rate FiO2 07/19/17 14:31 100 15 102/55 (71) 93 07/19/17 07:36 Nasal Cannula 3.50 07/19/17 00:00 98.4 Intake and Output 07/19/17 07/19/17 07/20/17 08:00 16:00 00:00 Intake Total 200 ml Output Total 350 ml Balance -150 ml Result Diagram: 07/19/17 0425 07/19/17 0425 Other Results Microbiology Date/Time Source Procedure Growth Status 07/18/17 09:40 Stool Stool - Final NO ENTERIC PATHOGENS DETECTED BY PCR... Complete 07/18/17 09:40 Stool Stool Rotavirus Antigen - Final NEGATIVE - ROTAVIRUS ANTIGEN IS ABSEN... Complete Objective Remarks GENERAL: Well-developed, well-nourished, in no acute distress. alert and orientated HEENT: Head is normocephalic without any lesions or masses noted. Facial features are symmetric. Eyes: Extraocular muscles are intact. Conjunctivae were clear. NECK: Supple without any masses. Trachea midline no deviation. No JVD, no bruits are appreciated CARDIAC: Regular rhythm, regular rate. S1/S2 are heard. No murmurs gallops or rubs. LUNGS: Clear to auscultation bilaterally. No wheeze, rhonchi or rales. No use of accessory muscles on inspiration or expiration. ABDOMEN: Soft, nontender. Nondistended. Bowel sounds heard in all 4 quadrants. No organomegaly or masses. Negative rebound, negative guarding EXTREMITIES: No edema, pulses are equal bilaterally. No cyanosis or clubbing NEUROLOGY: Mood and affect appear appropriate. Cranial nerves II through XII grossly intact. Moving all extremities, speech is clear Urinary Catheter: Yes Assessment to: Continue Joyner insert reason: Obstruction/Retention Vascular Central Line Catheter: No A/P Problem List: (1) Acute renal failure superimposed on stage 4 chronic kidney disease ICD Code: N17.9 - Acute kidney failure, unspecified; N18.4 - Chronic kidney disease, stage 4 (severe) Status: Acute (2) Severe dehydration ICD Code: E86.0 - Dehydration; N18.4 - Chronic kidney disease, stage 4 (severe) Status: Acute (3) Hyponatremia ICD Code: E87.1 - Hypo-osmolality and hyponatremia Status: Acute (4) Acute respiratory failure ICD Code: J96.00 - Acute respiratory failure, unspecified whether with hypoxia or hypercapnia Status: Acute (5) Hypokalemia ICD Code: E87.6 - Hypokalemia; N18.4 - Chronic kidney disease, stage 4 (severe) Status: Acute Assessment and Plan NEUROLOGY Likely stable this time, avoid any sedatives PULMONARY History of chronic obstructive pulmonary disease Clinically stable Continue O2 supplementation maintain O2 sats greater 92% Duo nebs every 4 hours and every 2 hours as needed Symbicort Incentive spirometry CARDIOLOGY Hypotension History CHF History of hypertension Status post 5 L of IV fluid Continue Levophed, continue to wean off to keep map greater than 65 Continues hydrocortisone 20 mg every 12 hours Give albumin 12.5 g every 12 hours 2 GASTROENTEROLOGY Diarrhea illness C. difficile cultures, stool cultures, rotavirus antigen are negative Continue healthy heart diet Continue Pepcid Discontinue Flagyl GENITOURINARY Acute renal failure Prostate cancer with metastasis Nephrology and urology evaluated patient and following Continue IV fluids Renal functions are improving Continue Ojyner with accurate monitoring of input and output INFECTIOUS DISEASE Sepsis/systemic inflammatory response syndrome Diarrhea illness Source of infection is not identified at this time Will discontinue all antibiotics monitor for any signs of infection HEMATOLOGY Clinically stable this time Monitor hemoglobin and transfuse if needed ENDOCRINOLOGY Monitor glucoses start Accu-Cheks and sliding scale insulin if needed PROPHYLAXIS DVT prevention with subcutaneous heparin GI protection with Pepcid LINES Peripheral IVs Critical care management 30 minutes excluding procedures Patient seen and examined agree with above assessment and plan. Problem Qualifiers (1) Acute renal failure superimposed on stage 4 chronic kidney disease: Qualified Codes: N17.9 - Acute kidney failure, unspecified; N18.4 - Chronic kidney disease, stage 4 (severe) Trenton Steward Jul 19, 2017 16:56 Yassine Calvillo MD Jul 19, 2017 17:29
[2017-07-20] VITALS (117 sets, daily range): BP systolic 79–124; BP diastolic 41–77; PULSE 96–115; RESP 11–30; TEMP 97.6–98.9; O2SAT 88–97
[2017-07-20] MEDS: CHLORHEXIDINE GLUCONATE 2 % 1 PACK (2 CLOTHS)(taper/protocol) TOPICAL SCH (04:00)
[2017-07-20] MEDS: RESP: ALBUTEROL 2.5 MG/IPRATROPIUM 0.5 MG NEB (SCH) INH ×6 (04:29→23:48)
[2017-07-20] MEDS: ALBUMIN 25% INJ 50 ML IV SCH (04:35)
[2017-07-20 06:16] LABS: AUTOMATED NEUTROPHIL # 6.9 TH/MM3 (1.8-7.7); BASOPHIL % 0.1 % (0.0-2.0); EOSINOPHIL % 0.6 % (0.0-4.0); HEMOGLOBIN 9.8 GM/DL (13.0-17.0); LYMPH % 5.6 % (9.0-44.0); LYMPHOCYTE # 0.5 TH/MM3 (1.0-4.8); MEAN CELL VOLUME 96.8 FL (80.0-100.0); MEAN CORPUSCULAR HEMOGLOBIN 30.7 PG (27.0-34.0); MEAN CORPUSCULAR HGB CONC 31.7 % (32.0-36.0); MEAN PLATELET VOLUME 8.8 FL (7.0-11.0); MONO % 8.4 % (0.0-8.0); MONOCYTE # 0.7 TH/MM3 (0-0.9); NEUT % 85.3 % (16.0-70.0); PLATELET COUNT 187 TH/MM3 (150-450); RED BLOOD COUNT 3.21 MIL/MM3 (4.50-5.90); RED CELL DISTRIBUTION WIDTH 15.7 % (11.6-17.2); WHITE BLOOD COUNT 8.1 TH/MM3 (4.0-11.0)
[2017-07-20 06:29] LABS: CALCIUM 7.9 MG/DL (8.5-10.1)
[2017-07-20 06:33] LABS: CREATININE 2.5 MG/DL (0.60-1.30)
--- NOTE | 2017-07-20 06:56 | HHI.CCPN ---
Subjective Remarks/Hospital Course The patient is as 76-year-old male with past medical history of CHF, COPD on 2liters home oxygen, gastroesophageal reflux disease, arthritis, who presented[facility] [place] [facility] with 4-day history of poor appetite associated withintractable nausea, vomiting and diarrhea. The patient also reported abdominalcramps. He denied any blood or mucus in the stool. Most of the history wasobtained from reviewing medical records as the patient is a poor historian. Hedenies any chest pain, shortness of breath, however he reports mild edema of his lower extremities. The patient denies any fever, chills, cough or any constitutional symptoms. Upon arrival to the ED he was hypertensive with systolic blood pressure 80s to 90s and afebrile. His laboratory data is significant for acute renal failure with a BUN of 59, creatinine of 3.90 and hyperkalemic with potassium level of 3.1. There is no evidence of any fever or leukocytosis. His lactic acid level measured at 1.4 and on repeat at midnight was 0.8. He was given 1 liter of normal saline in the ED and started on Levophed. Right femoral central line was placed by the ED physician. His labs this morning showed some improvements of his renal function with a creatinine 3.50 from 3.9. The patient is awake, alert on 2 liters oxygen with saturation of 94%. His current blood pressure is 105/53 with a MAP of 77 on Levophed. A chest x-ray in the ED showed cardiomegaly with pulmonary vascular engorgement. 07/19/17: Patient seen in follow up on septic shock, acute renal failure Patient states that he is doing well. Discussed his care with him, daughter and . Patient is doing much better. Workup is by EKG anything significant for infected source. Patient is still on Levophed at 10 mics. We'll continue to wean Levophed at this time. Patient remains afebrile. No acute events overnight. 07/20 No events overnight. Levophed is down to 6 mics. Afebrile. Objective Vital Signs Date Time Temp Pulse Resp B/P (MAP) Pulse Ox O2 Delivery O2 Flow Rate FiO2 07/20/17 06:06 104 07/20/17 06:01 16 103/57 (72) 94 07/20/17 04:31 98.1 07/19/17 20:01 Nasal Cannula 3.50 Intake and Output 07/20/17 07/20/17 07/21/17 08:00 16:00 00:00 Intake Total 50 ml Output Total 450 ml Balance -400 ml Result Diagram: 07/20/17 0540 07/20/17 0540 Other Results Laboratory Tests Test 07/20/17 05:40 White Blood Count 8.1 TH/MM3 Red Blood Count 3.21 MIL/MM3 Hemoglobin 9.8 GM/DL Hematocrit 31.0 % Mean Corpuscular Volume 96.8 FL Mean Corpuscular Hemoglobin 30.7 PG Mean Corpuscular Hemoglobin Concent 31.7 % Red Cell Distribution Width 15.7 % Platelet Count 187 TH/MM3 Mean Platelet Volume 8.8 FL Neutrophils (%) (Auto) 85.3 % Lymphocytes (%) (Auto) 5.6 % Monocytes (%) (Auto) 8.4 % Eosinophils (%) (Auto) 0.6 % Basophils (%) (Auto) 0.1 % Neutrophils # (Auto) 6.9 TH/MM3 Lymphocytes # (Auto) 0.5 TH/MM3 Monocytes # (Auto) 0.7 TH/MM3 Eosinophils # (Auto) 0.0 TH/MM3 Basophils # (Auto) 0.0 TH/MM3 CBC Comment DIFF FINAL Differential Comment Blood Urea Nitrogen 37 MG/DL Creatinine 2.50 MG/DL Random Glucose 130 MG/DL Calcium Level 7.9 MG/DL Magnesium Level 2.0 MG/DL Sodium Level 139 MEQ/L Potassium Level 3.2 MEQ/L Chloride Level 108 MEQ/L Carbon Dioxide Level 23.0 MEQ/L Anion Gap 8 MEQ/L Estimat Glomerular Filtration Rate 25 ML/MIN Imaging Last Impressions Renal Ultrasound 07/18/17 0000 Signed Impressions: Service Date/Time: July 08:31 - CONCLUSION: 1. Moderate hydronephrosis and cortical thinning bilaterally. Michael Jaquez MD Chest X-Ray [id number] Signed Impressions: Service Date/Time: Monday, July 17, 2017 21:30 - CONCLUSION: Cardiomegaly with pulmonary vascular engorgement. A subtle parenchymal density within the left lung base likely related to early intraalveolar edema. Pedro Spear Jr., MD Objective Remarks GENERAL: Well-developed, well-nourished, in no acute distress. alert and orientated HEENT: Head is normocephalic without any lesions or masses noted. Facial features are symmetric. Eyes: Extraocular muscles are intact. Conjunctivae were clear. NECK: Supple without any masses. Trachea midline no deviation. No JVD, no bruits are appreciated CARDIAC: Regular rhythm, regular rate. S1/S2 are heard. No murmurs gallops or rubs. LUNGS: Clear to auscultation bilaterally. No wheeze, rhonchi or rales. No use of accessory muscles on inspiration or expiration. ABDOMEN: Soft, nontender. Nondistended. Bowel sounds heard in all 4 quadrants. No organomegaly or masses. Negative rebound, negative guarding EXTREMITIES: No edema, pulses are equal bilaterally. No cyanosis or clubbing NEUROLOGY: Mood and affect appear appropriate. Cranial nerves II through XII grossly intact. Moving all extremities, speech is clear A/P Problem List: (1) Acute renal failure superimposed on stage 4 chronic kidney disease ICD Code: N17.9 - Acute kidney failure, unspecified; N18.4 - Chronic kidney disease, stage 4 (severe) Status: Acute (2) Severe dehydration ICD Code: E86.0 - Dehydration; N18.4 - Chronic kidney disease, stage 4 (severe) Status: Acute (3) Hyponatremia ICD Code: E87.1 - Hypo-osmolality and hyponatremia Status: Acute (4) Acute respiratory failure ICD Code: J96.00 - Acute respiratory failure, unspecified whether with hypoxia or hypercapnia Status: Acute (5) Hypokalemia ICD Code: E87.6 - Hypokalemia; N18.4 - Chronic kidney disease, stage 4 (severe) Status: Acute Assessment and Plan NEUROLOGY Monitor neuro status avoid any sedatives PULMONARY History of chronic obstructive pulmonary disease Continue O2 supplementation maintain O2 sats greater 92% Duo nebs every 4 hours and every 2 hours as needed Symbicort Incentive spirometry CARDIOLOGY Hypotension History CHF History of hypertension Wean off Levophed keep MAP>65mmHg Continues hydrocortisone 20 mg every 12 hours Check 2D echo to eval LV function GASTROENTEROLOGY Diarrhea illness C. difficile cultures, stool cultures, rotavirus antigen are negative Continue healthy heart diet Continue Pepcid GENITOURINARY Acute renal failure Prostate cancer with metastasis Nephrology and urology evaluated patient and following Monitor renal function, I/O's, avoid nephrotoxins. Renal function improving with Cr: 2.50. Decrease IVF D5NS@42ml/hr Will give KCL 20meqIV x1 and Lasix 20mg IV x1 INFECTIOUS DISEASE Sepsis/systemic inflammatory response syndrome Diarrhea illness Source of infection is not identified at this time Off abx, monitor for signs of infections ( Fever, WBC) 07/17: NGTD HEMATOLOGY Monitor CBC ENDOCRINOLOGY Monitor glucoses start Accu-Cheks and sliding scale insulin if needed PROPHYLAXIS DVT prevention with subcutaneous heparin GI protection with Pepcid LINES Peripheral IVs Level 3 Problem Qualifiers (1) Acute renal failure superimposed on stage 4 chronic kidney disease: Qualified Codes: N17.9 - Acute kidney failure, unspecified; N18.4 - Chronic kidney disease, stage 4 (severe) Yassine Calvillo MD Jul 20, 2017 06:56
[2017-07-20] MEDS ORDERED: FUROSEMIDE 20 MG/2 ML VIAL IV PUSH ONE (07:00)
[2017-07-20] MEDS ORDERED: POTASSIUM CHLOR 20 MEQ PREMIX 100 ML IV ONE (07:00)
[2017-07-20] MEDS: FAMOTIDINE 20 MG/2 ML VIAL IV PUSH SCH ×2 (09:20→22:15)
[2017-07-20] MEDS: HEPARIN SODIUM - SQ 10,000 UNITS/ML VIAL SQ SCH ×2 (09:21→20:15)
[2017-07-20] MEDS: HYDROCORTISONE 10 MG TAB PO SCH ×2 (09:22→17:53)
[2017-07-20] MEDS: BUDESONIDE-FORMOTEROL 160/4.5 MCG INHALER INH SCH ×2 (09:22→20:14)
[2017-07-20] MEDS: DEXT 5%-NACL 0.9% 1000 ML INJ 1,000 ML IV SCH (09:35)
[2017-07-20] MEDS: NOREPINEPHRINE-DEXTROSE DRIP 250 ML IV PRN (09:36)
--- NOTE | 2017-07-20 16:46 | HHI.NPPN ---
Subjective History of Present Illness 76-year-old male with past medical history of ischemic heart disease, congestive heart failure, prostate cancer, hypertension, COPD of arthritis, chronic kidney disease who was admitted with. Nausea or vomiting and diarrhea. I was called to see the patient because of elevated BUN and creatinine patient has elevated creatinine in the past and in January of last year his creatinine was 2.5. 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 Additional Remarks Patient is alert, breathing is better, still not eating, not in distress. Objective Data Data 07/20/17 07/21/17 19:00 07:00 Intake Total 100 ml Balance 100 ml IV Total 100 ml Vital Signs Date Time Temp Pulse Resp B/P (MAP) Pulse Ox O2 Delivery O2 Flow Rate FiO2 07/20/17 15:15 104 18 110/55 (73) 92 07/20/17 14:03 96 07/20/17 14:00 102 17 104/63 (77) 93 07/20/17 13:45 106 17 105/56 (72) 90 07/20/17 13:30 102 14 98/60 (73) 93 07/20/17 13:15 106 17 110/67 (81) 93 07/20/17 13:00 108 21 101/58 (72) 90 07/20/17 12:45 112 22 109/58 (75) 92 07/20/17 12:30 110 17 107/58 (74) 92 07/20/17 12:15 110 16 105/53 (70) 92 07/20/17 12:00 108 19 117/51 (73) 93 07/20/17 12:00 106 07/20/17 12:00 97.8 07/20/17 11:45 108 18 117/62 (80) 94 07/20/17 11:30 110 21 116/58 (77) 92 07/20/17 11:15 104 19 114/50 (71) 91 07/20/17 11:00 102 13 108/53 (71) 96 07/20/17 11:00 102 13 108/53 (71) 96 07/20/17 10:45 100 12 90/49 (63) 96 07/20/17 10:30 100 12 108/58 (75) 97 07/20/17 10:15 102 13 118/58 (78) 97 1/20/18 10:00 106 07/20/17 10:00 104 17 119/63 (81) 95 07/20/17 09:45 98.9 102 19 109/58 (75) 97 07/20/17 09:36 104 113/60 07/20/17 09:30 110 22 113/60 (77) 90 07/20/17 09:20 104 18 92/60 (71) 93 07/20/17 09:15 104 19 95/55 (68) 94 07/20/17 09:00 104 27 120/64 (82) 94 07/20/17 08:45 108 21 110/63 (79) 92 07/20/17 08:30 110 26 115/62 (79) 94 07/20/17 08:15 114 24 113/62 (79) 94 07/20/17 08:00 106 17 98/69 (79) 92 07/20/17 08:00 115 07/20/17 07:57 108 17 102/48 (66) 92 07/20/17 07:45 106 19 91 07/20/17 07:40 106 17 103/52 (69) 90 07/20/17 07:35 95 Nasal Cannula 4.00 07/20/17 07:30 106 17 94 07/20/17 07:16 106 16 104/55 (71) 93 07/20/17 07:15 108 17 92 07/20/17 07:01 104 15 99/54 (69) 94 07/20/17 07:01 104 15 99/54 (69) 94 07/20/17 07:00 104 16 92 07/20/17 06:46 104 16 101/63 (76) 94 07/20/17 06:31 104 15 108/59 (75) 94 07/20/17 06:16 102 12 98/48 (65) 97 07/20/17 06:06 104 07/20/17 06:01 102 16 103/57 (72) 94 07/20/17 05:46 104 16 108/58 (75) 96 07/20/17 05:40 106 16 100/50 (67) 96 07/20/17 05:34 104 15 86/44 (58) 93 07/20/17 05:31 104 15 79/41 (54) 96 07/20/17 05:16 104 14 97/51 (66) 93 07/20/17 05:01 106 30 91/50 (64) 93 18 04:46 102 16 99/56 (70) 93 07/20/17 04:31 98.1 100 18 108/63 (78) 94 07/20/17 04:16 100 20 109/53 (71) 95 07/20/17 04:01 102 16 108/59 (75) 95 07/20/17 04:00 102 07/20/17 03:46 102 14 107/56 (73) 94 07/20/17 03:31 106 23 105/63 (77) 94 07/20/17 03:16 104 18 113/59 (77) 94 07/20/17 03:01 102 11 95/49 (64) 95 07/20/17 02:46 102 12 101/48 (65) 95 07/20/17 02:31 106 18 110/54 (72) 95 07/20/17 02:16 106 19 97/58 (71) 92 07/20/17 02:15 104 17 94 07/20/17 02:01 106 16 105/59 (74) 94 07/20/17 02:00 100 07/20/17 01:46 106 17 101/58 (72) 93 07/20/17 01:31 104 16 109/57 (74) 96 07/20/17 01:16 106 17 109/54 (72) 96 07/20/17 01:01 110 18 108/55 (72) 94 07/20/17 00:46 106 17 109/61 (77) 95 07/20/17 00:31 106 17 106/52 (70) 94 07/20/17 00:16 97.6 108 16 113/56 (75) 95 07/20/17 00:01 106 16 108/53 (71) 96 07/20/17 00:00 108 18 23:31 104 16 111/54 (73) 95 18 23:25 108 101/69 18 23:20 108 101/69 18 23:16 108 20 101/69 (80) 93 18 23:01 110 24 111/52 (71) 90 18 22:46 104 16 104/57 (73) 94 07/19/17 22:31 97.9 102 17 99/60 (73) 95 07/19/17 22:07 106 07/19/17 22:01 102 15 105/51 (69) 96 07/19/17 21:46 104 16 110/53 (72) 96 07/19/17 21:31 102 17 100/50 (67) 93 07/19/17 21:16 100 16 106/60 (75) 96 07/19/17 21:00 100 17 106/55 (72) 97 07/19/17 20:45 98 16 97/49 (65) 97 07/19/17 20:30 98 18 100/52 (68) 96 07/19/17 20:15 100 19 101/55 (70) 90 07/19/17 20:01 96 Nasal Cannula 3.50 07/19/17 20:00 97 07/19/17 20:00 98 19 94/51 (65) 98 07/19/17 19:47 100 07/19/17 19:45 98 17 106/55 (72) 99 07/19/17 19:30 98 19 104/54 (71) 96 07/19/17 19:15 98 16 111/50 (70) 97 07/19/17 19:00 102 19 106/55 (72) 95 -: 07/20/17 0540 07/20/17 1530 Physical Exam General Appearance: No Acute Distress, Comfortable Eyes Eye Exam: Pupils Equal Throat Throat Exam: Oral Mucosa [place] & Moist Pulmonary Resp Exam: Breath Sounds Equal, No Distress, Crackles, Rhonchi, Decreased Bases Cardiology CV Exam: Regular, Normal Sinus Rhythm Gastrointestinal/Abdomen GI Exam: Soft, Non-Tender, Bowel Sounds Present, Distended Extremeties Extremities Exam: Moderate Edema, Pitting Edema, Dependent Edema Neurologic Neuro Exam: Alert, Awake Psychiatric Psych Exam: Appropriate Responses Assessment/Plan Assessment Summary: MICHAELLE/Acute Renal Failure, Anemia of CKD, Fluid/Volume Overload, CKD Stage IV Problem List: (1) COPD exacerbation ICD Codes: J44.1 - Chronic obstructive pulmonary disease with (acute) exacerbation Status: Acute (2) Hypoxia ICD Codes: R09.02 - Hypoxemia Status: Acute (3) HTN (hypertension) ICD Codes: I10 - Essential (primary) hypertension Status: Acute (4) Congestive heart failure ICD Codes: I50.9 - Heart failure, unspecified Status: Acute (5) Acute respiratory failure ICD Codes: J96.00 - Acute respiratory failure, unspecified whether with hypoxia or hypercapnia Status: Acute (6) Acute renal failure superimposed on stage 4 chronic kidney disease ICD Codes: N17.9 - Acute kidney failure, unspecified; N18.4 - Chronic kidney disease, stage 4 (severe) Status: Acute (7) Hypokalemia ICD Codes: E87.6 - Hypokalemia; N18.4 - Chronic kidney disease, stage 4 (severe ) Status: Acute Plan Patient has Chronic kidney disease, stage 4, now also develop MICHAELLE. Urine out put is adequate. BP is stable, afebrile. Not eating well, has edema, given one dose of Lasix. Creatinine continue to improve. Has bilateral hydronephrosis. Urology following. Encourage oral intake, if eating better, can D/C IVF. Lasix as needed. Follow the urine out put and BMP. Avoid Nephrotoxins. Problem Qualifiers (1) Acute renal failure superimposed on stage 4 chronic kidney disease: Qualified Codes: N17.9 - Acute kidney failure, unspecified; N18.4 - Chronic kidney disease, stage 4 (severe) Phuc Ferguson MD Jul 20, 2017 16:46
[2017-07-21] VITALS (64 sets, daily range): BP systolic 80–130; BP diastolic 46–77; PULSE 104–120; RESP 11–33; TEMP 97.3–98.4; O2SAT 85–98
[2017-07-21] MEDS: NOREPINEPHRINE-DEXTROSE DRIP 250 ML IV PRN (00:08)
[2017-07-21] MEDS: RESP: ALBUTEROL 2.5 MG/IPRATROPIUM 0.5 MG NEB (SCH) INH ×6 (04:00→23:27)
[2017-07-21] MEDS: CHLORHEXIDINE GLUCONATE 2 % 1 PACK (2 CLOTHS)(taper/protocol) TOPICAL SCH (04:00)
[2017-07-21] MEDS: HYDROCORTISONE 10 MG TAB PO SCH ×2 (06:23→17:56)
[2017-07-21 06:25] LABS: AUTOMATED NEUTROPHIL # 8.4 TH/MM3 (1.8-7.7); BASOPHIL % 0.1 % (0.0-2.0); EOSINOPHIL # 0.1 TH/MM3 (0-0.4); EOSINOPHIL % 0.8 % (0.0-4.0); HEMATOCRIT 32.8 % (39.0-51.0); HEMOGLOBIN 10.7 GM/DL (13.0-17.0); LYMPH % 3.6 % (9.0-44.0); LYMPHOCYTE # 0.4 TH/MM3 (1.0-4.8); MEAN CELL VOLUME 96.9 FL (80.0-100.0); MEAN CORPUSCULAR HEMOGLOBIN 31.6 PG (27.0-34.0); MEAN CORPUSCULAR HGB CONC 32.7 % (32.0-36.0); MEAN PLATELET VOLUME 8.9 FL (7.0-11.0); MONO % 9.8 % (0.0-8.0); NEUT % 85.7 % (16.0-70.0); PLATELET COUNT 189 TH/MM3 (150-450); RED BLOOD COUNT 3.38 MIL/MM3 (4.50-5.90); RED CELL DISTRIBUTION WIDTH 16.1 % (11.6-17.2); WHITE BLOOD COUNT 9.9 TH/MM3 (4.0-11.0)
[2017-07-21 06:32] LABS: CHLORIDE 108 MEQ/L (98-107); SODIUM (NA) 139 MEQ/L (136-145)
[2017-07-21 06:35] LABS: ALBUMIN 2.5 GM/DL (3.4-5.0); BICARBONATE 21.1 MEQ/L (21.0-32.0); CALCIUM 8.2 MG/DL (8.5-10.1)
[2017-07-21 06:36] LABS: BLOOD UREA NITROGEN 34 MG/DL (7-18); GLUCOSE,RANDOM 109 MG/DL (74-106)
[2017-07-21 06:38] LABS: ALT (GPT) 9 U/L (12-78); AST (GOT) 17 U/L (15-37)
[2017-07-21 06:39] LABS: GLOMERULAR FILTRATION RATE 25 ML/MIN (>89)
[2017-07-21 06:40] LABS: TOTAL BILIRUBIN ADULT 0.3 MG/DL (0.2-1.0); TOTAL PROTEIN 6.1 GM/DL (6.4-8.2)
[2017-07-21 06:41] LABS: ALKALINE PHOSPHATASE 132 U/L (45-117)
[2017-07-21] MEDS: DEXT 5%-NACL 0.9% 1000 ML INJ 1,000 ML IV SCH (08:49)
[2017-07-21] MEDS: FAMOTIDINE 20 MG/2 ML VIAL IV PUSH SCH ×2 (08:50→21:05)
[2017-07-21] MEDS: HEPARIN SODIUM - SQ 10,000 UNITS/ML VIAL SQ SCH ×2 (08:50→21:04)
[2017-07-21] MEDS: BUDESONIDE-FORMOTEROL 160/4.5 MCG INHALER INH SCH ×2 (08:50→21:05)
--- NOTE | 2017-07-21 11:31 | HHI.NPPN ---
Subjective History of Present Illness 76-year-old male with past medical history of ischemic heart disease, congestive heart failure, prostate cancer, hypertension, COPD of arthritis, chronic kidney disease who was admitted with. Nausea or vomiting and diarrhea. I was called to see the patient because of elevated BUN and creatinine patient has elevated creatinine in the past and in January of last year his creatinine was 2.5. 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 Additional Remarks Patient is alert, breathing is better, started eating some, clinically same. Objective Data Data Vital Signs Date Time Temp Pulse Resp B/P (MAP) Pulse Ox O2 Delivery O2 Flow Rate FiO2 07/21/17 10:30 110 14 105/72 (83) 94 07/21/17 10:00 112 21 116/71 (86) 95 07/21/17 10:00 112 07/21/17 09:00 106 12 95 07/21/17 08:00 98.1 112 23 92 07/21/17 08:00 112 07/21/17 07:58 92 Nasal Cannula 4.00 07/21/17 07:05 116 20 124/72 (89) 92 07/21/17 06:00 114 07/21/17 04:00 110 07/21/17 04:00 97.3 07/21/17 02:46 120 21 103/57 (72) 87 07/21/17 02:45 116 33 88 07/21/17 02:31 116 18 107/62 (77) 07/21/17 02:30 114 21 07/21/17 02:16 114 20 115/68 (84) 90 07/21/17 02:15 118 20 89 07/21/17 02:01 112 14 106/60 (75) 95 07/21/17 02:00 112 07/21/17 02:00 112 15 95 07/21/17 01:46 116 17 87/46 (60) 07/21/17 01:45 116 18 07/21/17 01:30 116 18 112/63 (79) 07/21/17 01:15 120 19 113/63 (80) 91 07/21/17 01:00 116 19 96/52 (67) 88 07/21/17 00:45 120 28 130/69 (89) 07/21/17 00:30 116 22 113/46 (68) 85 07/21/17 00:15 112 23 119/68 (85) 86 18 00:08 114 112/59 18 00:00 110 16 112/59 (76) 91 18 00:00 110 07/21/17 00:00 98.0 18 23:45 110 19 117/68 (84) 18 23:30 108 16 114/65 (81) 92 07/20/17 23:15 110 17 108/66 (80) 92 07/20/17 23:00 110 20 112/64 (80) 91 07/20/17 22:45 110 17 124/71 (88) 92 07/20/17 22:30 108 20 111/65 (80) 91 07/20/17 22:17 112 19 110/71 (84) 90 07/20/17 22:15 110 18 91 07/20/17 22:00 110 18 07/20/17 22:00 110 07/20/17 21:46 108 17 111/77 (88) 90 07/20/17 21:45 106 17 89 07/20/17 21:31 106 18 105/61 (76) 91 07/20/17 21:30 104 17 92 07/20/17 21:16 108 21 110/56 (74) 88 07/20/17 21:15 108 16 88 07/20/17 21:15 108 16 88 07/20/17 21:01 104 17 96/50 (65) 92 07/20/17 21:01 104 17 96/50 (65) 92 07/20/17 21:00 106 18 93 07/20/17 21:00 106 18 93 18 20:46 106 17 103/58 (73) 94 2018 20:46 106 17 103/58 (73) 94 20/18 20:45 104 17 94 2018 20:45 104 17 94 2018 20:31 104 18 103/48 (66) 90 18 20:31 104 18 103/48 (66) 90 07/20/17 20:30 106 17 91 2018 20:30 106 17 91 07/20/17 20:16 106 19 104/54 (71) 91 07/20/17 20:15 106 18 90 07/20/17 20:01 104 22 103/57 (72) 91 18 20:00 106 07/20/17 20:00 98.6 18 20:00 106 22 91 18 19:46 104 20 98/57 (71) 90 18 19:45 104 18 91 18 19:31 102 19 102/54 (70) 91 07/20/17 19:30 102 21 91 07/20/17 19:28 95 Nasal Cannula 4.00 07/20/17 19:16 100 18 101/60 (74) 96 07/20/17 19:15 100 20 97 07/20/17 19:01 100 17 99/58 (72) 94 07/20/17 19:00 102 17 95 07/20/17 18:31 100 18 104/55 (71) 96 07/20/17 18:16 102 20 100/56 (71) 95 07/20/17 18:00 104 18 112/63 (79) 92 07/20/17 18:00 102 07/20/17 17:45 97.8 102 17 103/50 (67) 94 07/20/17 17:30 104 15 107/51 (69) 89 07/20/17 17:15 102 16 97/49 (65) 95 07/20/17 17:00 104 17 108/54 (72) 96 07/20/17 17:00 104 17 108/54 (72) 96 07/20/17 16:45 104 18 109/56 (73) 94 07/20/17 16:30 106 17 107/54 (71) 96 07/20/17 16:15 110 16 106/54 (71) 94 07/20/17 16:00 105 07/20/17 16:00 108 18 110/56 (74) 92 07/20/17 15:15 104 18 110/55 (73) 92 07/20/17 14:03 96 07/20/17 14:00 102 17 104/63 (77) 93 07/20/17 13:45 106 17 105/56 (72) 90 07/20/17 13:30 102 14 98/60 (73) 93 07/20/17 13:15 106 17 110/67 (81) 93 1/20/18 13:00 108 21 101/58 (72) 90 07/20/17 12:45 112 22 109/58 (75) 92 07/20/17 12:30 110 17 107/58 (74) 92 07/20/17 12:15 110 16 105/53 (70) 92 07/20/17 12:00 108 19 117/51 (73) 93 07/20/17 12:00 106 07/20/17 12:00 97.8 07/20/17 11:45 108 18 117/62 (80) 94 -: 07/21/17 0555 07/21/17 0555 Physical Exam General Appearance: No Acute Distress, Comfortable Eyes Eye Exam: Pupils Equal Throat Throat Exam: Oral Mucosa [place] & Moist Pulmonary Resp Exam: Breath Sounds Equal, No Distress, Crackles, Rhonchi, Decreased Bases Cardiology CV Exam: Regular, Normal Sinus Rhythm Gastrointestinal/Abdomen GI Exam: Soft, Non-Tender, Bowel Sounds Present, Distended Extremeties Extremities Exam: Moderate Edema, Pitting Edema, Dependent Edema Neurologic Neuro Exam: Alert, Awake Psychiatric Psych Exam: Appropriate Responses Assessment/Plan Assessment Summary: MICHAELLE/Acute Renal Failure, Anemia of CKD, Fluid/Volume Overload, CKD Stage IV Problem List: (1) COPD exacerbation ICD Codes: J44.1 - Chronic obstructive pulmonary disease with (acute) exacerbation Status: Acute (2) Hypoxia ICD Codes: R09.02 - Hypoxemia Status: Acute (3) HTN (hypertension) ICD Codes: I10 - Essential (primary) hypertension Status: Acute (4) Congestive heart failure ICD Codes: I50.9 - Heart failure, unspecified Status: Acute (5) Acute respiratory failure ICD Codes: J96.00 - Acute respiratory failure, unspecified whether with hypoxia or hypercapnia Status: Acute (6) Acute renal failure superimposed on stage 4 chronic kidney disease ICD Codes: N17.9 - Acute kidney failure, unspecified; N18.4 - Chronic kidney disease, stage 4 (severe) Status: Acute (7) Hypokalemia ICD Codes: E87.6 - Hypokalemia; N18.4 - Chronic kidney disease, stage 4 (severe ) Status: Acute Plan Patient has Chronic kidney disease, stage 4, now also develop MICHAELLE. Urine out put is adequate. BP is stable, afebrile. Not eating well, has edema, given one dose of Lasix. Has bilateral hydronephrosis. Urology following. Encourage oral intake, if eating better, can D/C IVF. Lasix as needed. Follow the urine out put and BMP. Avoid Nephrotoxins. Creatinine is same, non oliguric. Problem Qualifiers (1) HTN (hypertension): Qualified Codes: I10 - Essential (primary) hypertension (2) Acute renal failure superimposed on stage 4 chronic kidney disease: Qualified Codes: N17.9 - Acute kidney failure, unspecified; N18.4 - Chronic kidney disease, stage 4 (severe) Phuc Ferguson MD Jul 21, 2017 11:31
--- NOTE | 2017-07-21 16:49 | ECHRPT ---
Indication: EVAL LV FUNCTION CONCLUSIONS The left ventricular systolic function is low normal with an estimated ejection fraction in the rang e of 50- 55%. Normal left ventricular size. Wall thickness is normal. No regional wall motion abnormalities are present. The left atrial size is mildly dilated. Calcification of the right coronary cusp. Moderate aortic valve regurgitation. There is mild tricuspid valve regurgitation. The estimated pulmonary arterial pressure is 52.5 mmHg. Limited due to tachycardia, consider repeat study when heart rate controlled to better assess aortic regurgitation, if clinically indicated. BP: 103 / 57 HR: 72 Rhythm: Sinus MEASUREMENTS (Male / Female) Normal Values Technical Quality:Technically difficult study 2D ECHO LV Diastolic Diameter PLAX 4.1 cm 4.2 - 5.9 / 3.9 - 5.3 cm LV Systolic Diameter PLAX 3.1 cm IVS Diastolic Thickness 1.0 cm 0.6 - 1.0 / 0.6 - 0.9 cm LVPW Diastolic Thickness 1.0 cm 0.6 - 1.0 / 0.6 - 0.9 cm LV Relative Wall Thickness 0.5 LVOT Diameter 2.0 cm LA Systolic Diameter LX 4.5 cm 3.0 - 4.0 / 2.7 - 3.8 cm LV Ejection Fraction MOD 4C 54.5 % LV Cardiac Index MOD 4C 1691.5 cm/minm LV Ejection Fraction 4C AL 56.0 % LV Cardiac Index 4C AL 1803.9 cm/minm M-MODE Aortic Root Diameter MM 3.1 cm LA Systolic Diameter MM 4.2 cm LA Ao Ratio MM 1.4 AV Cusp Separation MM 1.6 cm DOPPLER AV Peak Velocity 186.0 cm/s AV Peak Gradient 13.8 mmHg AI Peak Velocity 381.0 cm/s AI Peak Gradient 58.1 mmHg AI Pressure Half Time 242.5 ms LVOT Peak Velocity 108.0 cm/s LVOT Peak Gradient 4.7 mmHg AV Area Cont Eq pk 1.8 cm MV Area PHT 4.0 cm Mitral E Point Velocity 124.0 cm/s Mitral A Point Velocity 101.0 cm/s Mitral E to A Ratio 1.2 LV E' Lateral Velocity 12.4 cm/s Mitral E to LV E' Lateral Ratio 10.0 LV E' Septal Velocity 6.2 cm/s Mitral E to LV E' Septal Ratio 19.9 TR Peak Velocity 326.0 cm/s TR Peak Gradient 42.5 mmHg Right Atrial Pressure 10.0 mmHg Pulmonary Artery Systolic Pressu 52.5 mmHg Right Ventricular Systolic Press 52.5 mmHg PV Peak Velocity 109.0 cm/s PV Peak Gradient 4.8 mmHg FINDINGS LEFT VENTRICLE The left ventricular systolic function is low normal with an estimated ejection fraction in the rang e of 50- 55%. Normal left ventricular size. Wall thickness is normal. No regional wall motion abnormalities are present. RIGHT VENTRICLE Normal right ventricular size and systolic function. LEFT ATRIUM The left atrial size is mildly dilated. RIGHT ATRIUM The right atrial size is normal. ATRIAL SEPTUM Normal atrial septal thickness without atrial level shunting by limited color doppler interrogation. AORTA The aortic root and proximal ascending aorta are normal in size on limited imaging. MITRAL VALVE Structurally normal mitral valve. No mitral valve stenosis or regurgitation. AORTIC VALVE Trileaflet aortic valve. Calcification of the right coronary cusp. Moderate aortic valve regurgitation. TRICUSPID VALVE Structurally normal tricuspid valve. There is mild tricuspid valve regurgitation. The estimated pulmonary arterial pressure is 52.5 mmHg. PULMONARY VALVE No pulmonary valve regurgitation or stenosis. VESSELS The inferior vena cava is normal in size. PERICARDIUM No pericardial effusion. Michael Zamora MD (Electronically Signed) Final Date:21 July 2017 16:48
--- NOTE | 2017-07-21 16:51 | HHI.CCPN ---
Subjective Remarks/Hospital Course The patient is as 76-year-old male with past medical history of CHF, COPD on 2liters home oxygen, gastroesophageal reflux disease, arthritis, who presentedto [place] ED with 4-day history of poor appetite associated withintractable nausea, vomiting and diarrhea. The patient also reported abdominalcramps. He denied any blood or mucus in the stool. Most of the history wasobtained from reviewing medical records as the patient is a poor historian. Hedenies any chest pain, shortness of breath, however he reports mild edema of his lower extremities. The patient denies any fever, chills, cough or any constitutional symptoms. Upon arrival to the ED he was hypertensive with systolic blood pressure 80s to 90s and afebrile. His laboratory data is significant for acute renal failure with a BUN of 59, creatinine of 3.90 and hyperkalemic with potassium level of 3.1. There is no evidence of any fever or leukocytosis. His lactic acid level measured at 1.4 and on repeat at midnight was 0.8. He was given 1 liter of normal saline in the ED and started on Levophed. Right femoral central line was placed by the ED physician. His labs this morning showed some improvements of his renal function with a creatinine 3.50 from 3.9. The patient is awake, alert on 2 liters oxygen with saturation of 94%. His current blood pressure is 105/53 with a MAP of 77 on Levophed. A chest x-ray in the ED showed cardiomegaly with pulmonary vascular engorgement. 07/19/17: Patient seen in follow up on septic shock, acute renal failure Patient states that he is doing well. Discussed his care with him, daughter and . Patient is doing much better. Workup is by EKG anything significant for infected source. Patient is still on Levophed at 10 mics. We'll continue to wean Levophed at this time. Patient remains afebrile. No acute events overnight. 07/20 No events overnight. Levophed is down to 6 mics. Afebrile. 07/21 No events overnight Off Levophed. Afebrile. Objective Vital Signs Date Time Temp Pulse Resp B/P (MAP) Pulse Ox O2 Delivery O2 Flow Rate FiO2 07/21/17 14:33 104 21 93/57 (69) 94 07/21/17 12:03 98.0 07/21/17 07:58 Nasal Cannula 4.00 Intake and Output 07/21/17 07/21/17 07/22/17 08:00 16:00 00:00 Intake Total 1263 ml Balance 1263 ml Result Diagram: 07/21/17 0555 07/21/17 0555 Other Results Laboratory Tests Test 07/21/17 05:55 White Blood Count 9.9 TH/MM3 Red Blood Count 3.38 MIL/MM3 Hemoglobin 10.7 GM/DL Hematocrit 32.8 % Mean Corpuscular Volume 96.9 FL Mean Corpuscular Hemoglobin 31.6 PG Mean Corpuscular Hemoglobin Concent 32.7 % Red Cell Distribution Width 16.1 % Platelet Count 189 TH/MM3 Mean Platelet Volume 8.9 FL Neutrophils (%) (Auto) 85.7 % Lymphocytes (%) (Auto) 3.6 % Monocytes (%) (Auto) 9.8 % Eosinophils (%) (Auto) 0.8 % Basophils (%) (Auto) 0.1 % Neutrophils # (Auto) 8.4 TH/MM3 Lymphocytes # (Auto) 0.4 TH/MM3 Monocytes # (Auto) 1.0 TH/MM3 Eosinophils # (Auto) 0.1 TH/MM3 Basophils # (Auto) 0.0 TH/MM3 CBC Comment DIFF FINAL Differential Comment Blood Urea Nitrogen 34 MG/DL Creatinine 2.50 MG/DL Random Glucose 109 MG/DL Total Protein 6.1 GM/DL Albumin 2.5 GM/DL Calcium Level 8.2 MG/DL Alkaline Phosphatase 132 U/L Aspartate Amino Transf (AST/SGOT) 17 U/L Alanine Aminotransferase (ALT/SGPT) 9 U/L Total Bilirubin 0.3 MG/DL Sodium Level 139 MEQ/L Potassium Level 3.4 MEQ/L Chloride Level 108 MEQ/L Carbon Dioxide Level 21.1 MEQ/L Estimat Glomerular Filtration Rate 25 ML/MIN Imaging Last Impressions Renal Ultrasound 07/18/17 0000 Signed Impressions: Service Date/Time: July 08:31 - CONCLUSION: 1. Moderate hydronephrosis and cortical thinning bilaterally. Michael Jaquez MD Chest X-Ray [id number] Signed Impressions: Service Date/Time: Monday, July 17, 2017 21:30 - CONCLUSION: Cardiomegaly with pulmonary vascular engorgement. A subtle parenchymal density within the left lung base likely related to early intraalveolar edema. Pedro Spear Jr., MD Objective Remarks GENERAL: Well-developed, well-nourished, in no acute distress. alert and orientated HEENT: Head is normocephalic without any lesions or masses noted. Facial features are symmetric. Eyes: Extraocular muscles are intact. Conjunctivae were clear. NECK: Supple without any masses. Trachea midline no deviation. No JVD, no bruits are appreciated CARDIAC: Regular rhythm, regular rate. S1/S2 are heard. No murmurs gallops or rubs. LUNGS: Clear to auscultation bilaterally. No wheeze, rhonchi or rales. No use of accessory muscles on inspiration or expiration. ABDOMEN: Soft, nontender. Nondistended. Bowel sounds heard in all 4 quadrants. No organomegaly or masses. Negative rebound, negative guarding EXTREMITIES: No cyanosis or clubbing, + 2 edema NEUROLOGY: Mood and affect appear appropriate. Cranial nerves II through XII grossly intact. Moving all extremities, speech is clear A/P Problem List: (1) Acute renal failure superimposed on stage 4 chronic kidney disease ICD Code: N17.9 - Acute kidney failure, unspecified; N18.4 - Chronic kidney disease, stage 4 (severe) Status: Acute (2) Severe dehydration ICD Code: E86.0 - Dehydration; N18.4 - Chronic kidney disease, stage 4 (severe) Status: Acute (3) Hyponatremia ICD Code: E87.1 - Hypo-osmolality and hyponatremia Status: Acute (4) Acute respiratory failure ICD Code: J96.00 - Acute respiratory failure, unspecified whether with hypoxia or hypercapnia Status: Acute (5) Hypokalemia ICD Code: E87.6 - Hypokalemia; N18.4 - Chronic kidney disease, stage 4 (severe) Status: Acute Assessment and Plan NEUROLOGY Monitor neuro status avoid any sedatives PULMONARY History of chronic obstructive pulmonary disease Continue O2 supplementation maintain O2 sats greater 92% Duo nebs every 4 hours and every 2 hours as needed Symbicort Incentive spirometry CARDIOLOGY Hypotension History CHF History of hypertension Wean off Levophed keep MAP>65mmHg Continues hydrocortisone 20 mg every 12 hours Follow up on echo results GASTROENTEROLOGY Diarrhea illness C. difficile cultures, stool cultures, rotavirus antigen are negative Continue healthy heart diet Continue Pepcid GENITOURINARY Acute renal failure Prostate cancer with metastasis Nephrology and urology are following Monitor renal function, I/O's, avoid nephrotoxins. Cr: 2.50. d/c IVF Will give KCL 40meqIV x1 and [id number] IV x1 INFECTIOUS DISEASE Sepsis/systemic inflammatory response syndrome Diarrhea illness Source of infection is not identified at this time Off abx, monitor for signs of infections ( Fever, WBC) BC 07/17: NGTD HEMATOLOGY Monitor CBC ENDOCRINOLOGY Monitor glucoses start Accu-Cheks and sliding scale insulin if needed PROPHYLAXIS DVT prevention with subcutaneous heparin GI protection with Pepcid LINES d/c femoral line once Peripheral IVs are placed Level 3 Problem Qualifiers (1) Acute renal failure superimposed on stage 4 chronic kidney disease: Qualified Codes: N17.9 - Acute kidney failure, unspecified; N18.4 - Chronic kidney disease, stage 4 (severe) Yassine Calvillo MD Jul 21, 2017 16:51
[2017-07-21] MEDS ORDERED: POTASSIUM CHLOR 40 MEQ PREMIX 100 ML IV ONE (17:00)
[2017-07-21] MEDS ORDERED: FUROSEMIDE 40 MG/4 ML VIAL IV PUSH ONE (17:00)
[2017-07-22] VITALS (72 sets, daily range): BP systolic 86–126; BP diastolic 50–77; PULSE 106–122; RESP 12–24; TEMP 98–98.6; O2SAT 89–95
[2017-07-22] MEDS: RESP: ALBUTEROL 2.5 MG/IPRATROPIUM 0.5 MG NEB (SCH) INH ×2 (03:31→07:46)
[2017-07-22 05:37] LABS: CALCIUM 8.5 MG/DL (8.5-10.1)
[2017-07-22 05:39] LABS: BASOPHIL % 0.2 % (0.0-2.0); EOSINOPHIL # 0.1 TH/MM3 (0-0.4); EOSINOPHIL % 1.3 % (0.0-4.0); HEMATOCRIT 34.2 % (39.0-51.0); HEMOGLOBIN 10.9 GM/DL (13.0-17.0); LYMPH % 5.7 % (9.0-44.0); LYMPHOCYTE # 0.5 TH/MM3 (1.0-4.8); MEAN CELL VOLUME 97.4 FL (80.0-100.0); MEAN CORPUSCULAR HEMOGLOBIN 31.1 PG (27.0-34.0); MEAN CORPUSCULAR HGB CONC 31.9 % (32.0-36.0); MEAN PLATELET VOLUME 9.3 FL (7.0-11.0); MONOCYTE # 0.9 TH/MM3 (0-0.9); NEUT % 82.8 % (16.0-70.0); PLATELET COUNT 200 TH/MM3 (150-450); RED BLOOD COUNT 3.51 MIL/MM3 (4.50-5.90); RED CELL DISTRIBUTION WIDTH 16.6 % (11.6-17.2); WHITE BLOOD COUNT 8.5 TH/MM3 (4.0-11.0)
[2017-07-22 05:41] LABS: CREATININE 2.6 MG/DL (0.60-1.30)
[2017-07-22] MEDS: HYDROCORTISONE 10 MG TAB PO SCH ×2 (06:16→20:48)
[2017-07-22] MEDS: HEPARIN SODIUM - SQ 10,000 UNITS/ML VIAL SQ SCH ×2 (08:19→20:49)
[2017-07-22] MEDS: BUDESONIDE-FORMOTEROL 160/4.5 MCG INHALER INH SCH ×2 (08:19→20:48)
[2017-07-22] MEDS: FAMOTIDINE 20 MG/2 ML VIAL IV PUSH SCH ×2 (08:19→20:49)
[2017-07-22] MEDS: CHLORHEXIDINE GLUCONATE 2 % 1 PACK (2 CLOTHS)(taper/protocol) TOPICAL SCH (08:20)
[2017-07-22] MEDS: RESP: ALBUTEROL 2.5 MG/IPRATROPIUM 0.5 MG NEB (PRN) INH ×3 (11:18→21:16)
--- NOTE | 2017-07-22 11:24 | RADRPT ---
EXAM DATE/TIME: 07/22/2017 10:55 [facility] COMPARISON: CHEST SINGLE AP, July 17, 2017, 21:30. INDICATIONS : Short of breath. MEDICAL HISTORY : Carcinoma, pancreas. Chronic obstructive pulmonary disease.Gastroesophageal reflux disease. SURGICAL HISTORY : None. ENCOUNTER: Initial ACUITY: 4 - 6 days PAIN SCORE: 0/10 LOCATION: Bilateral chest FINDINGS: There is moderate congestive failure. There is elevation of the left hemidiaphragm. There is modera te cardiomegaly. No significant pleural fluid. CONCLUSION: Increasing congestive failure. Abdirahman Jaquez MD FACR on July 22, 2017 at 11:21 Board Certified Radiologist. This report was verified electronically.
[2017-07-22] MEDS: FUROSEMIDE 40 MG/4 ML VIAL IV PUSH SCH (12:00)
--- NOTE | 2017-07-22 12:38 | RADRPT ---
EXAM DATE/TIME: 07/22/2017 12:00 [facility] COMPARISON: No previous studies available for comparison. INDICATIONS : Bilateral lower extremity edema. MEDICAL HISTORY : CHF. Hypertension. COPD. GERD. Prostate cancer SURGICAL HISTORY : Colonoscopy. ENCOUNTER: Initial ACUITY: 1 day PAIN SCORE: 0/10 LOCATION: Bilateral legs. TECHNIQUE: Venous ultrasound of the left and right leg was performed from the inguinal ligament to the proximal calf. Real-time, color Doppler and spectral tracing, compression and augmentation techniques were us ed. FINDINGS: RIGHT LEG: There is a nonocclusive thrombus localized to the right common femoral vein. Otherwise, the rest of t he deep venous system of the right lower extremity appear to be patent without occlusion.. LEFT LEG: There is normal compressibility of the deep venous system from the inguinal region to the proximal ca lf. No echogenic clot is seen in the lumen of the common femoral, femoral, popliteal, and posterior tibial veins. There is a normal response of the venous system to proximal and distal augmentation an d respiration. CONCLUSION: 1. Nonocclusive thrombus localized in the right common femoral vein. 2. No evidence of DVT in the lower extremity. Jadiel Hurst MD on July 22, 2017 at 12:34 Board Certified Radiologist. This report was verified electronically.
--- NOTE | 2017-07-22 15:43 | HHI.NPPN ---
Subjective History of Present Illness 76-year-old male with past medical history of ischemic heart disease, congestive heart failure, prostate cancer, hypertension, COPD of arthritis, chronic kidney disease who was admitted with. Nausea or vomiting and diarrhea. I was called to see the patient because of elevated BUN and creatinine patient has elevated creatinine in the past and in January of last year his creatinine was 2.5. 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 Additional Remarks Patient is alert, breathing is better, seen in AM, not in distress. Objective Data Data Vital Signs Date Time Temp Pulse Resp B/P (MAP) Pulse Ox O2 Delivery O2 Flow Rate FiO2 07/22/17 15:01 118 24 107/57 (74) 92 07/22/17 15:00 116 20 91 07/22/17 14:31 114 19 107/52 (70) 93 07/22/17 14:01 114 17 110/62 (78) 92 07/22/17 14:00 114 07/22/17 14:00 116 16 92 07/22/17 13:01 114 15 109/62 (78) 92 07/22/17 13:00 112 16 92 07/22/17 12:01 98.6 110 13 92/77 (82) 95 07/22/17 12:00 106 07/22/17 12:00 112 16 95 07/22/17 11:27 95 Nasal Cannula 4.00 07/22/17 11:01 116 19 103/55 (71) 93 07/22/17 11:00 116 19 95 07/22/17 10:01 118 21 111/61 (78) 91 07/22/17 10:00 114 07/22/17 10:00 116 19 89 07/22/17 09:31 114 17 107/63 (78) 93 07/22/17 09:00 120 20 91 07/22/17 08:00 114 18 95 07/22/17 08:00 114 07/22/17 07:47 94 Nasal Cannula 4.00 07/22/17 07:33 110 13 100/57 (71) 92 07/22/17 07:31 112 17 86/63 (71) 92 07/22/17 07:01 114 19 116/57 (76) 91 07/22/17 07:00 116 20 92 07/22/17 06:15 114 18 93 07/22/17 06:01 112 17 109/60 (76) 93 07/22/17 06:00 114 16 93 07/22/17 05:45 112 15 93 07/22/17 05:31 112 18 109/63 (78) 92 07/22/17 05:30 114 18 91 07/22/17 05:15 112 13 92 07/22/17 05:01 114 20 111/65 (80) 93 07/22/17 05:00 114 22 93 07/22/17 04:45 118 23 07/22/17 04:31 114 19 102/67 (79) 93 07/22/17 04:30 114 18 95 07/22/17 04:15 114 18 95 07/22/17 04:01 112 15 116/62 (80) 93 07/22/17 04:00 112 07/22/17 04:00 98.1 07/22/17 04:00 112 16 93 07/22/17 03:45 114 19 92 07/22/17 03:31 112 17 113/55 (74) 93 07/22/17 03:30 112 18 92 07/22/17 03:15 112 16 92 07/22/17 03:01 110 12 116/51 (72) 93 07/22/17 03:00 112 13 93 07/22/17 02:45 110 13 93 07/22/17 02:31 110 12 98/53 (68) 93 07/22/17 02:30 108 13 93 07/22/17 02:15 112 14 92 07/22/17 02:00 114 19 101/61 (74) 92 07/22/17 02:00 114 07/22/17 01:45 116 17 93 07/22/17 01:30 114 19 116/67 (83) 94 07/22/17 01:15 114 19 94 07/22/17 01:00 114 20 110/67 (81) 93 07/22/17 00:45 116 18 92 07/22/17 00:30 114 18 126/67 (86) 94 07/22/17 00:15 108 12 93 07/22/17 00:00 110 07/22/17 00:00 98.0 07/22/17 00:00 110 13 102/57 (72) 93 07/21/17 23:45 110 13 94 07/21/17 23:30 110 13 109/62 (78) 94 07/21/17 23:15 112 14 89 07/21/17 23:00 112 18 106/61 (76) 93 07/21/17 22:45 112 21 93 07/21/17 22:30 112 19 115/57 (76) 92 07/21/17 22:15 114 18 93 07/21/17 22:00 112 17 110/69 (83) 92 07/21/17 22:00 112 07/21/17 21:45 110 12 95 07/21/17 21:30 112 20 94/63 (73) 93 07/21/17 21:15 112 18 92 07/21/17 21:00 110 12 103/67 (79) 93 07/21/17 20:45 112 18 93 07/21/17 20:30 112 18 94/58 (70) 94 07/21/17 20:15 112 17 93 07/21/17 20:00 98.1 07/21/17 20:00 114 07/21/17 20:00 114 21 107/59 (75) 92 07/21/17 19:55 92 Nasal Cannula 4.00 07/21/17 19:45 112 21 93 07/21/17 19:30 108 28 112/65 (81) 95 07/21/17 19:15 108 21 95 07/21/17 19:00 110 23 109/67 (81) 95 07/21/17 18:00 108 07/21/17 18:00 108 16 109/54 (72) 96 07/21/17 17:30 108 16 99/56 (70) 98 07/21/17 17:00 110 16 104/61 (75) 96 07/21/17 16:48 110 17 105/58 (74) 96 07/21/17 16:33 110 18 97/55 (69) 97 07/21/17 16:03 98.4 106 20 112/56 (74) 94 07/21/17 16:00 106 -: 07/22/17 0435 07/22/17 0435 Physical Exam General Appearance: No Acute Distress, Comfortable Eyes Eye Exam: Pupils Equal Throat Throat Exam: Oral Mucosa Elkins & Moist Pulmonary Resp Exam: Breath Sounds Equal, No Distress, Crackles, Rhonchi, Decreased Bases Cardiology CV Exam: Regular, Normal Sinus Rhythm Gastrointestinal/Abdomen GI Exam: Soft, Non-Tender, Bowel Sounds Present, Distended Extremeties Extremities Exam: Moderate Edema, Pitting Edema, Dependent Edema Neurologic Neuro Exam: Alert, Awake Psychiatric Psych Exam: Appropriate Responses Assessment/Plan Assessment Summary: MICHAELLE/Acute Renal Failure, Anemia of CKD, Fluid/Volume Overload, CKD Stage IV Problem List: (1) COPD exacerbation ICD Codes: J44.1 - Chronic obstructive pulmonary disease with (acute) exacerbation Status: Acute (2) Hypoxia ICD Codes: R09.02 - Hypoxemia Status: Acute (3) HTN (hypertension) ICD Codes: I10 - Essential (primary) hypertension Status: Acute (4) Congestive heart failure ICD Codes: I50.9 - Heart failure, unspecified Status: Acute (5) Acute respiratory failure ICD Codes: J96.00 - Acute respiratory failure, unspecified whether with hypoxia or hypercapnia Status: Acute (6) Acute renal failure superimposed on stage 4 chronic kidney disease ICD Codes: N17.9 - Acute kidney failure, unspecified; N18.4 - Chronic kidney disease, stage 4 (severe) Status: Acute (7) Hypokalemia ICD Codes: E87.6 - Hypokalemia; N18.4 - Chronic kidney disease, stage 4 (severe ) Status: Acute Plan Patient has Chronic kidney disease, stage 4, now also develop MICHAELLE. Urine out put is adequate. BP is stable, afebrile. Not eating well, has edema, given one dose of Lasix. Has bilateral hydronephrosis. Urology following. Encourage oral intake, if eating better, can D/C IVF. Follow the urine out put and BMP. Avoid Nephrotoxins. Creatinine is almost same, non oliguric. Continue Lasix, D/C Joyner's catheter. Problem Qualifiers (1) HTN (hypertension): Qualified Codes: I10 - Essential (primary) hypertension (2) Acute renal failure superimposed on stage 4 chronic kidney disease: Qualified Codes: N17.9 - Acute kidney failure, unspecified; N18.4 - Chronic kidney disease, stage 4 (severe) Phuc Ferguson MD Jul 22, 2017 15:43
--- NOTE | 2017-07-22 16:56 | HHI.CCPN ---
Subjective Remarks/Hospital Course The patient is as 76-year-old male with past medical history of CHF, COPD on 2liters home oxygen, gastroesophageal reflux disease, arthritis, who presentedto [facility] with 4-day history of poor appetite associated withintractable nausea, vomiting and diarrhea. The patient also reported abdominalcramps. He denied any blood or mucus in the stool. Most of the history wasobtained from reviewing medical records as the patient is a poor historian. Hedenies any chest pain, shortness of breath, however he reports mild edema of his lower extremities. The patient denies any fever, chills, cough or any constitutional symptoms. Upon arrival to the ED he was hypertensive with systolic blood pressure 80s to 90s and afebrile. His laboratory data is significant for acute renal failure with a BUN of 59, creatinine of 3.90 and hyperkalemic with potassium level of 3.1. There is no evidence of any fever or leukocytosis. His lactic acid level measured at 1.4 and on repeat at midnight was 0.8. He was given 1 liter of normal saline in the ED and started on Levophed. Right femoral central line was placed by the ED physician. His labs this morning showed some improvements of his renal function with a creatinine 3.50 from 3.9. The patient is awake, alert on 2 liters oxygen with saturation of 94%. His current blood pressure is 105/53 with a MAP of 77 on Levophed. A chest x-ray in the ED showed cardiomegaly with pulmonary vascular engorgement. 07/19/17: Patient seen in follow up on septic shock, acute renal failure Patient states that he is doing well. Discussed his care with him, daughter and . Patient is doing much better. Workup is by EKG anything significant for infected source. Patient is still on Levophed at 10 mics. We'll continue to wean Levophed at this time. Patient remains afebrile. No acute events overnight. 07/20 No events overnight. Levophed is down to 6 mics. Afebrile. 07/21 No events overnight Off Levophed. Afebrile. 07/22 No events overnight. On 4L oxygen Objective Vital Signs Date Time Temp Pulse Resp B/P (MAP) Pulse Ox O2 Delivery O2 Flow Rate FiO2 07/22/17 15:01 118 24 107/57 (74) 92 07/22/17 12:01 98.6 07/22/17 11:27 Nasal Cannula 4.00 Intake and Output 07/22/17 07/22/17 07/23/17 08:00 16:00 00:00 Intake Total 400 ml Output Total 900 ml Balance -500 ml Result Diagram: 07/22/17 0435 07/22/17 0435 Other Results Laboratory Tests Test 07/22/17 02:22 07/22/17 04:35 Potassium Level 3.9 MEQ/L 3.7 MEQ/L White Blood Count 8.5 TH/MM3 Red Blood Count 3.51 MIL/MM3 Hemoglobin 10.9 GM/DL Hematocrit 34.2 % Mean Corpuscular Volume 97.4 FL Mean Corpuscular Hemoglobin 31.1 PG Mean Corpuscular Hemoglobin Concent 31.9 % Red Cell Distribution Width 16.6 % Platelet Count 200 TH/MM3 Mean Platelet Volume 9.3 FL Neutrophils (%) (Auto) 82.8 % Lymphocytes (%) (Auto) 5.7 % Monocytes (%) (Auto) 10.0 % Eosinophils (%) (Auto) 1.3 % Basophils (%) (Auto) 0.2 % Neutrophils # (Auto) 7.0 TH/MM3 Lymphocytes # (Auto) 0.5 TH/MM3 Monocytes # (Auto) 0.9 TH/MM3 Eosinophils # (Auto) 0.1 TH/MM3 Basophils # (Auto) 0.0 TH/MM3 CBC Comment DIFF FINAL Differential Comment Blood Urea Nitrogen 34 MG/DL Creatinine 2.60 MG/DL Random Glucose 94 MG/DL Calcium Level 8.5 MG/DL Sodium Level 141 MEQ/L Chloride Level 110 MEQ/L Carbon Dioxide Level 22.0 MEQ/L Anion Gap 9 MEQ/L Estimat Glomerular Filtration Rate 24 ML/MIN Imaging Last Impressions Lower Extremity Ultrasound 07/22/17 0000 Signed Impressions: Service Date/Time: Saturday, July 22, 2017 12:00 - CONCLUSION: 1. Nonocclusive thrombus localized in the right common femoral vein. 2. No evidence of DVT in the lower extremity. Jadiel Hurst MD Chest X-Ray 07/22/17 0000 Signed Impressions: Service Date/Time: Saturday, July 22, 2017 10:55 - CONCLUSION: Increasing congestive failure. Abdirahman Jaquez MD FACR Renal Ultrasound 07/18/17 0000 Signed Impressions: Service Date/Time: July 08:31 - CONCLUSION: 1. Moderate hydronephrosis and cortical thinning bilaterally. Michael Jaquez MD Objective Remarks GENERAL: Well-developed, well-nourished, in no acute distress. alert and orientated HEENT: Head is normocephalic without any lesions or masses noted. Facial features are symmetric. Eyes: Extraocular muscles are intact. Conjunctivae were clear. NECK: Supple without any masses. Trachea midline no deviation. No JVD, no bruits are appreciated CARDIAC: Regular rhythm, regular rate. S1/S2 are heard. No murmurs gallops or rubs. LUNGS: Clear to auscultation bilaterally. No wheeze, rhonchi or rales. No use of accessory muscles on inspiration or expiration. ABDOMEN: Soft, nontender. Nondistended. Bowel sounds heard in all 4 quadrants. No organomegaly or masses. Negative rebound, negative guarding EXTREMITIES: No cyanosis or clubbing, + 2 edema NEUROLOGY: Mood and affect appear appropriate. Cranial nerves II through XII grossly intact. Moving all extremities, speech is clear A/P Problem List: (1) Acute renal failure superimposed on stage 4 chronic kidney disease ICD Code: N17.9 - Acute kidney failure, unspecified; N18.4 - Chronic kidney disease, stage 4 (severe) Status: Acute (2) Severe dehydration ICD Code: E86.0 - Dehydration; N18.4 - Chronic kidney disease, stage 4 (severe) Status: Acute (3) Hyponatremia ICD Code: E87.1 - Hypo-osmolality and hyponatremia Status: Acute (4) Acute respiratory failure ICD Code: J96.00 - Acute respiratory failure, unspecified whether with hypoxia or hypercapnia Status: Acute (5) Hypokalemia ICD Code: E87.6 - Hypokalemia; N18.4 - Chronic kidney disease, stage 4 (severe) Status: Acute Assessment and Plan NEUROLOGY Monitor neuro status avoid any sedatives PULMONARY History of chronic obstructive pulmonary disease Continue O2 supplementation maintain O2 sats greater 92% Duo nebs every 4 hours and every 2 hours as needed Symbicort, Incentive spirometry CARDIOLOGY Hypotension History CHF History of hypertension Off Levophed keep MAP>65mmHg Continues hydrocortisone 20 mg every 12 hours Echo showed EF 50-55%, GASTROENTEROLOGY Diarrhea illness C. difficile cultures, stool cultures, rotavirus antigen are negative Continue healthy heart diet Continue Pepcid GENITOURINARY Acute renal failure Prostate cancer with metastasis Nephrology and urology are following Monitor renal function, I/O's, avoid nephrotoxins. Cr: 2.60 today, diurese with Lasix 40mg x1 CXR today showed CHF pattern INFECTIOUS DISEASE Sepsis/systemic inflammatory response syndrome Diarrhea illness Source of infection is not identified at this time Off abx, monitor for signs of infections ( Fever, WBC) 07/17: NGTD HEMATOLOGY Monitor CBC ENDOCRINOLOGY Monitor glucoses start Accu-Cheks and sliding scale insulin if needed PROPHYLAXIS DVT prevention with subcutaneous heparin GI protection with Pepcid Doppler US LE: Nonocclusive thrombus localized in the right common femoral vein. No evidence of DVT in the lower extremity LINES Peripheral IVs Level 3 Problem Qualifiers (1) Acute renal failure superimposed on stage 4 chronic kidney disease: Qualified Codes: N17.9 - Acute kidney failure, unspecified; N18.4 - Chronic kidney disease, stage 4 (severe) Yassine Calvillo MD Jul 22, 2017 16:56
[2017-07-22] MEDS ORDERED: FUROSEMIDE 40 MG/4 ML VIAL IV PUSH ONE (21:00)
[2017-07-23] VITALS (27 sets, daily range): BP systolic 85–124; BP diastolic 55–77; PULSE 106–142; RESP 11–30; TEMP 97.7–98.9; O2SAT 85–95
[2017-07-23 05:15] LABS: BASOPHIL % 0.4 % (0.0-2.0); EOSINOPHIL % 0.6 % (0.0-4.0); HEMATOCRIT 32.1 % (39.0-51.0); HEMOGLOBIN 10.4 GM/DL (13.0-17.0); LYMPH % 6.2 % (9.0-44.0); LYMPHOCYTE # 0.5 TH/MM3 (1.0-4.8); MEAN CELL VOLUME 98.7 FL (80.0-100.0); MEAN CORPUSCULAR HGB CONC 32.4 % (32.0-36.0); MEAN PLATELET VOLUME 8.4 FL (7.0-11.0); MONO % 7.6 % (0.0-8.0); MONOCYTE # 0.6 TH/MM3 (0-0.9); NEUT % 85.2 % (16.0-70.0); PLATELET COUNT 181 TH/MM3 (150-450); RED BLOOD COUNT 3.26 MIL/MM3 (4.50-5.90); RED CELL DISTRIBUTION WIDTH 16.9 % (11.6-17.2); WHITE BLOOD COUNT 8.1 TH/MM3 (4.0-11.0)
[2017-07-23 05:43] LABS: BICARBONATE 23.8 MEQ/L (21.0-32.0); CALCIUM 8.5 MG/DL (8.5-10.1)
[2017-07-23 05:47] LABS: CREATININE 2.6 MG/DL (0.60-1.30)
[2017-07-23] MEDS: HYDROCORTISONE 10 MG TAB PO SCH ×2 (06:07→09:44)
[2017-07-23] MEDS: HEPARIN SODIUM - SQ 10,000 UNITS/ML VIAL SQ SCH ×2 (09:00→21:39)
[2017-07-23] MEDS: FAMOTIDINE 20 MG/2 ML VIAL IV PUSH SCH ×2 (09:00→21:40)
[2017-07-23] MEDS: BUDESONIDE-FORMOTEROL 160/4.5 MCG INHALER INH SCH ×2 (09:00→21:40)
[2017-07-23] MEDS: FUROSEMIDE 40 MG/4 ML VIAL IV PUSH SCH (09:00)
[2017-07-23] MEDS: RESP: ALBUTEROL 2.5 MG/IPRATROPIUM 0.5 MG NEB (SCH) NEB ×3 (11:11→20:28)
[2017-07-23] MEDS ORDERED: METOPROLOL TARTRATE 5 MG/5 ML VIAL IV PUSH ONE (14:00)
[2017-07-23 14:25] LABS: TROPONIN I 0.02 NG/ML (0.02-0.05)
--- NOTE | 2017-07-23 14:37 | HHI.NPPN ---
Subjective History of Present Illness 76-year-old male with past medical history of ischemic heart disease, congestive heart failure, prostate cancer, hypertension, COPD of arthritis, chronic kidney disease who was admitted with. Nausea or vomiting and diarrhea. I was called to see the patient because of elevated BUN and creatinine patient has elevated creatinine in the past and in January of last year his creatinine was 2.5. 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 Additional Remarks Patient is alert, breathing is better, started eating better, not in distress. Objective Data Data 07/23/17 07/24/17 19:00 07:00 Intake Total 0 ml Balance 0 ml Intake Oral 0 ml Vital Signs Date Time Temp Pulse Resp B/P (MAP) Pulse Ox O2 Delivery O2 Flow Rate FiO2 07/23/17 12:00 108 15 109/69 (82) 93 07/23/17 12:00 108 07/23/17 11:00 110 07/23/17 11:00 110 11 110/65 (80) 94 07/23/17 10:00 112 07/23/17 10:00 112 24 105/71 (82) 90 07/23/17 09:00 114 24 117/77 (90) 92 07/23/17 09:00 114 07/23/17 08:00 112 07/23/17 08:00 112 22 113/67 (82) 88 07/23/17 07:28 142 30 106/69 (81) 87 07/23/17 07:00 110 19 85/55 (65) 91 07/23/17 06:00 116 25 110/60 (77) 85 07/23/17 06:00 111 07/23/17 05:00 114 20 104/64 (77) 92 07/23/17 04:00 120 07/23/17 04:00 98.8 120 24 91 07/23/17 03:12 116 25 118/70 (86) 89 07/23/17 02:00 116 07/23/17 02:00 116 17 105/57 (73) 93 07/23/17 01:00 118 19 95 07/23/17 00:01 98.9 120 20 124/68 (86) 92 07/23/17 00:00 120 07/22/17 23:01 116 21 109/56 (73) 95 07/22/17 22:01 116 16 109/70 (83) 89 07/22/17 22:00 116 07/22/17 21:16 92 Nasal Cannula 4.50 07/22/17 21:01 114 19 116/64 (81) 92 07/22/17 20:01 98.6 116 20 104/62 (76) 94 07/22/17 20:00 116 07/22/17 19:01 120 23 111/58 (75) 93 07/22/17 18:30 118 21 94 07/22/17 18:15 116 19 91 07/22/17 18:01 118 21 102/65 (77) 91 07/22/17 18:00 118 24 91 07/22/17 18:00 114 07/22/17 17:01 114 18 96/50 (65) 93 07/22/17 17:00 116 19 92 07/22/17 16:01 112 13 103/52 (69) 90 07/22/17 16:00 122 07/22/17 16:00 114 14 91 07/22/17 15:01 118 24 107/57 (74) 92 07/22/17 15:00 116 20 91 -: 07/23/17 0455 07/23/17 0455 Physical Exam General Appearance: No Acute Distress, Comfortable Eyes Eye Exam: Pupils Equal Throat Throat Exam: Oral Mucosa [place] & Moist Pulmonary Resp Exam: Breath Sounds Equal, No Distress, Crackles, Rhonchi, Decreased Bases Cardiology CV Exam: Regular, Normal Sinus Rhythm Gastrointestinal/Abdomen GI Exam: Soft, Non-Tender, Bowel Sounds Present, Distended Extremeties Extremities Exam: Moderate Edema, Pitting Edema, Dependent Edema Neurologic Neuro Exam: Alert, Awake Psychiatric Psych Exam: Appropriate Responses Assessment/Plan Assessment Summary: MICHAELLE/Acute Renal Failure, Anemia of CKD, Fluid/Volume Overload, CKD Stage IV Problem List: (1) COPD exacerbation ICD Codes: J44.1 - Chronic obstructive pulmonary disease with (acute) exacerbation Status: Acute (2) Hypoxia ICD Codes: R09.02 - Hypoxemia Status: Acute (3) HTN (hypertension) ICD Codes: I10 - Essential (primary) hypertension Status: Acute (4) Congestive heart failure ICD Codes: I50.9 - Heart failure, unspecified Status: Acute (5) Acute respiratory failure ICD Codes: J96.00 - Acute respiratory failure, unspecified whether with hypoxia or hypercapnia Status: Acute (6) Acute renal failure superimposed on stage 4 chronic kidney disease ICD Codes: N17.9 - Acute kidney failure, unspecified; N18.4 - Chronic kidney disease, stage 4 (severe) Status: Acute (7) Hypokalemia ICD Codes: E87.6 - Hypokalemia; N18.4 - Chronic kidney disease, stage 4 (severe ) Status: Acute Plan Patient has Chronic kidney disease, stage 4, now also develop MICHAELLE. Urine out put is adequate. BP is stable, afebrile. Not eating well, has edema, given one dose of Lasix. Has bilateral hydronephrosis. Urology following. Encourage oral intake, if eating better, can D/C IVF. Follow the urine out put and BMP. Avoid Nephrotoxins. Creatinine is almost same, non oliguric. Continue Lasix, Follow the urine out put and BMP. D/W the patient and . Problem Qualifiers (1) HTN (hypertension): Qualified Codes: I10 - Essential (primary) hypertension (2) Acute renal failure superimposed on stage 4 chronic kidney disease: Qualified Codes: N17.9 - Acute kidney failure, unspecified; N18.4 - Chronic kidney disease, stage 4 (severe) Phuc Ferguson MD Jul 23, 2017 14:37
--- NOTE | 2017-07-23 16:47 | HHI.CCPN ---
Subjective Remarks/Hospital Course The patient is as 76-year-old male with past medical history of CHF, COPD on 2liters home oxygen, gastroesophageal reflux disease, arthritis, who presented[place] [facility] with 4-day history of poor appetite associated withintractable nausea, vomiting and diarrhea. The patient also reported abdominalcramps. He denied any blood or mucus in the stool. Most of the history wasobtained from reviewing medical records as the patient is a poor historian. Hedenies any chest pain, shortness of breath, however he reports mild edema of his lower extremities. The patient denies any fever, chills, cough or any constitutional symptoms. Upon arrival to the ED he was hypertensive with systolic blood pressure 80s to 90s and afebrile. His laboratory data is significant for acute renal failure with a BUN of 59, creatinine of 3.90 and hyperkalemic with potassium level of 3.1. There is no evidence of any fever or leukocytosis. His lactic acid level measured at 1.4 and on repeat at midnight was 0.8. He was given 1 liter of normal saline in the ED and started on Levophed. Right femoral central line was placed by the ED physician. His labs this morning showed some improvements of his renal function with a creatinine 3.50 from 3.9. The patient is awake, alert on 2 liters oxygen with saturation of 94%. His current blood pressure is 105/53 with a MAP of 77 on Levophed. A chest x-ray in the ED showed cardiomegaly with pulmonary vascular engorgement. 07/19/17: Patient seen in follow up on septic shock, acute renal failure Patient states that he is doing well. Discussed his care with him, daughter and . Patient is doing much better. Workup is by EKG anything significant for infected source. Patient is still on Levophed at 10 mics. We'll continue to wean Levophed at this time. Patient remains afebrile. No acute events overnight. 07/20 No events overnight. Levophed is down to 6 mics. Afebrile. 07/21 No events overnight Off Levophed. Afebrile. 07/22 No events overnight. On 4L oxygen 07/23 Patient is lying in bed in NAD , on 4L oxygen. Objective Vital Signs Date Time Temp Pulse Resp B/P (MAP) Pulse Ox O2 Delivery O2 Flow Rate FiO2 1/23/18 15:39 93 Nasal Cannula 4.00 07/23/17 12:00 108 15 109/69 (82) 07/23/17 04:00 98.8 Intake and Output 07/23/17 07/23/17 07/24/17 08:00 16:00 00:00 Intake Total 240 ml Output Total 1100 ml Balance -860 ml Result Diagram: 07/23/17 0455 07/23/17 0455 Other Results Laboratory Tests Test 07/22/17 20:05 07/23/17 04:55 07/23/17 11:20 07/23/17 13:36 Potassium Level 3.9 MEQ/L 3.9 MEQ/L White Blood Count 8.1 TH/MM3 Red Blood Count 3.26 MIL/MM3 Hemoglobin 10.4 GM/DL Hematocrit 32.1 % Mean Corpuscular Volume 98.7 FL Mean Corpuscular Hemoglobin 32.0 PG Mean Corpuscular Hemoglobin Concent 32.4 % Red Cell Distribution Width 16.9 % Platelet Count 181 TH/MM3 Mean Platelet Volume 8.4 FL Neutrophils (%) (Auto) 85.2 % Lymphocytes (%) (Auto) 6.2 % Monocytes (%) (Auto) 7.6 % Eosinophils (%) (Auto) 0.6 % Basophils (%) (Auto) 0.4 % Neutrophils # (Auto) 7.0 TH/MM3 Lymphocytes # (Auto) 0.5 TH/MM3 Monocytes # (Auto) 0.6 TH/MM3 Eosinophils # (Auto) 0.0 TH/MM3 Basophils # (Auto) 0.0 TH/MM3 CBC Comment DIFF FINAL Differential Comment Blood Urea Nitrogen 35 MG/DL Creatinine 2.60 MG/DL Random Glucose 99 MG/DL Calcium Level 8.5 MG/DL Sodium Level 141 MEQ/L Chloride Level 108 MEQ/L Carbon Dioxide Level 23.8 MEQ/L Anion Gap 9 MEQ/L Estimat Glomerular Filtration Rate 24 ML/MIN Blood Gas Puncture Site LT RADIAL Blood Gas Patient Temperature 37.0 Blood Gas HCO3 22 mmol/L Blood Gas Base Excess -3.1 mmol/L Blood Gas Oxygen Saturation 94 % Arterial Blood pH 7.35 Arterial Blood Partial Pressure CO2 40 mmHg Arterial Blood Partial Pressure O2 79 mmHg Arterial Blood Oxygen Content 14.4 Vol % Arterial Blood Carboxyhemoglobin 1.7 % Arterial Blood Methemoglobin 1.1 % Blood Gas Hemoglobin 10.8 G/DL Oxygen Delivery Device NASAL CANNULA Blood Gas Liter Flow 4 L/M Total Creatine Kinase 39 U/L Troponin I 0.02 NG/ML Imaging Last Impressions Lower Extremity Ultrasound 07/22/17 0000 Signed Impressions: Service Date/Time: Saturday, July 22, 2017 12:00 - CONCLUSION: 1. Nonocclusive thrombus localized in the right common femoral vein. 2. No evidence of DVT in the lower extremity. Jadiel Hurst MD Chest X-Ray 07/22/17 0000 Signed Impressions: Service Date/Time: Saturday, July 22, 2017 10:55 - CONCLUSION: Increasing congestive failure. Abdirahman Jaquez MD FACR Renal Ultrasound 07/18/17 0000 Signed Impressions: Service Date/Time: July 08:31 - CONCLUSION: 1. Moderate hydronephrosis and cortical thinning bilaterally. Michael Jaquez MD Objective Remarks GENERAL: Well-developed, well-nourished, in no acute distress. alert and orientated HEENT: Head is normocephalic without any lesions or masses noted. Facial features are symmetric. Eyes: Extraocular muscles are intact. Conjunctivae were clear. NECK: Supple without any masses. Trachea midline no deviation. No JVD, no bruits are appreciated CARDIAC: tachycardic, No murmurs gallops or rubs. LUNGS: Clear to auscultation bilaterally. No wheeze, rhonchi or rales. No use of accessory muscles on inspiration or expiration. ABDOMEN: Soft, nontender. Nondistended. Bowel sounds heard in all 4 quadrants. No organomegaly or masses. Negative rebound, negative guarding EXTREMITIES: No cyanosis or clubbing, + 2 edema NEUROLOGY: Mood and affect appear appropriate. Cranial nerves II through XII grossly intact. Moving all extremities, speech is clear A/P Problem List: (1) Acute renal failure superimposed on stage 4 chronic kidney disease ICD Code: N17.9 - Acute kidney failure, unspecified; N18.4 - Chronic kidney disease, stage 4 (severe) Status: Acute (2) Severe dehydration ICD Code: E86.0 - Dehydration; N18.4 - Chronic kidney disease, stage 4 (severe) Status: Acute (3) Hyponatremia ICD Code: E87.1 - Hypo-osmolality and hyponatremia Status: Acute (4) Acute respiratory failure ICD Code: J96.00 - Acute respiratory failure, unspecified whether with hypoxia or hypercapnia Status: Acute (5) Hypokalemia ICD Code: E87.6 - Hypokalemia; N18.4 - Chronic kidney disease, stage 4 (severe) Status: Acute Assessment and Plan NEUROLOGY Monitor neuro status avoid any sedatives Patient is for CT brain to eval intermittent confusion PULMONARY History of chronic obstructive pulmonary disease Continue O2 supplementation maintain O2 sats greater 92% Duo nebs every 4 hours and every 2 hours as needed Symbicort, Incentive spirometry CARDIOLOGY Siun tachycardia History CHF History of hypertension Place on Lopressor 12.5mg BID monitor HR and BP keep MAP>65mmHg Continues hydrocortisone 20 mg every 12 hours Echo showed EF 50-55%, GASTROENTEROLOGY Diarrhea illness C. difficile cultures, stool cultures, rotavirus antigen are negative Continue healthy heart diet Continue Pepcid GENITOURINARY Acute renal failure Prostate cancer with metastasis Nephrology and urology are following Monitor renal function, I/O's, avoid nephrotoxins. Cr: 2.60 today, continue with Lasix 40mg daily for volume overload CXR yesterday CHF pattern INFECTIOUS DISEASE s/p Sepsis/systemic inflammatory response syndrome Diarrhea illness Source of infection is not identified at this time Off abx, monitor for signs of infections ( Fever, WBC) BC 07/17: NGTD HEMATOLOGY Monitor CBC ENDOCRINOLOGY SSI if needed for glycemic control PROPHYLAXIS DVT prevention with subcutaneous heparin GI protection with Pepcid Doppler US LE: Nonocclusive thrombus localized in the right common femoral vein. No evidence of DVT in the lower extremity LINES Peripheral IVs Level 3 Problem Qualifiers (1) Acute renal failure superimposed on stage 4 chronic kidney disease: Qualified Codes: N17.9 - Acute kidney failure, unspecified; N18.4 - Chronic kidney disease, stage 4 (severe) Yassine Calvillo MD Jul 23, 2017 16:47
[2017-07-23] MEDS ORDERED: PILL SPLITTER OTHER PRN (17:00)
--- NOTE | 2017-07-23 17:24 | RADRPT ---
EXAM DATE/TIME: 07/23/2017 17:00 [facility] COMPARISON: No previous studies available for comparison. INDICATIONS : Episode of confusion. RADIATION DOSE: 60.57 CTDIvol (mGy) MEDICAL HISTORY : Hypertension. Chronic obstructive pulmonary disease. Carcinoma, prostate. SURGICAL HISTORY : Tonsillectomy. ENCOUNTER: Initial ACUITY: 1 day PAIN SCALE: 0/10 LOCATION: cranial TECHNIQUE: Multiple contiguous axial images were obtained of the head. Using automated exposure control and adj ustment of the mA and/or kV according to patient size, radiation dose was kept as low as reasonably a chievable to obtain optimal diagnostic quality images. DICOM format image data is available electro nically for review and comparison. FINDINGS: CEREBRUM: The ventricles are normal for age. No evidence of midline shift, mass lesion, hemorrhage or acute in farction. No extra-axial fluid collections are seen. POSTERIOR FOSSA: The cerebellum and brainstem are intact. The 4th ventricle is midline. The cerebellopontine angle i s unremarkable. EXTRACRANIAL: The visualized portion of the orbits is intact. SKULL: The calvaria is intact. No evidence of skull fracture. CONCLUSION: 1. No acute findings. Mild white matter ischemic changes. Kane Lundy MD on July 23, 2017 at 17:16 Board Certified Radiologist. This report was verified electronically.
[2017-07-23] MEDS: METOPROLOL TARTRATE 25 MG TAB PO SCH (21:39)
[2017-07-23] MEDS: SODIUM CHLORIDE 0.9% FLUSH 10 ML FLUSH IV FLUSH PRN (21:40)
--- NOTE | 2017-07-23 21:41 | EKG ---
Date Performed: 07/23/2017 Time Performed: 12:50:39 PTAGE: 76 years EKG: SINUS TACHYCARDIA WITH FREQUENT SUPRAVENTRICULAR PREMATURE COMPLEXES LOW QRS VOLTAGE IN EXT REMITY LEADS INFERIOR MYOCARDIAL INFARCTION ABNORMAL ECG PREVIOUS TRACING : 07/17/2017 21.39 Since previous tracing frequent PACs present DOCTOR: Edgardo Cobos Interpretating Date/Time 07/23/2017 21:39:50
[2017-07-24] VITALS (34 sets, daily range): BP systolic 69–126; BP diastolic 42–67; PULSE 94–119; RESP 11–28; TEMP 97.6–98.7; O2SAT 90–95
[2017-07-24] MEDS: RESP: ALBUTEROL 2.5 MG/IPRATROPIUM 0.5 MG NEB (SCH) NEB ×3 (03:41→08:30)
[2017-07-24 04:59] LABS: AUTOMATED NEUTROPHIL # 7.1 TH/MM3 (1.8-7.7); BASOPHIL % 0.4 % (0.0-2.0); EOSINOPHIL # 0.1 TH/MM3 (0-0.4); EOSINOPHIL % 1.2 % (0.0-4.0); HEMOGLOBIN 10.6 GM/DL (13.0-17.0); LYMPH % 10.5 % (9.0-44.0); LYMPHOCYTE # 0.9 TH/MM3 (1.0-4.8); MEAN CELL VOLUME 99.1 FL (80.0-100.0); MEAN CORPUSCULAR HEMOGLOBIN 31.9 PG (27.0-34.0); MEAN CORPUSCULAR HGB CONC 32.2 % (32.0-36.0); MEAN PLATELET VOLUME 8.7 FL (7.0-11.0); MONO % 8.2 % (0.0-8.0); MONOCYTE # 0.7 TH/MM3 (0-0.9); NEUT % 79.7 % (16.0-70.0); PLATELET COUNT 198 TH/MM3 (150-450); RED BLOOD COUNT 3.33 MIL/MM3 (4.50-5.90); RED CELL DISTRIBUTION WIDTH 17.1 % (11.6-17.2); WHITE BLOOD COUNT 8.8 TH/MM3 (4.0-11.0)
[2017-07-24 05:09] LABS: BICARBONATE 26.8 MEQ/L (21.0-32.0); CALCIUM 8.5 MG/DL (8.5-10.1)
[2017-07-24 05:13] LABS: CREATININE 2.7 MG/DL (0.60-1.30)
--- NOTE | 2017-07-24 06:41 | RADRPT ---
EXAM DATE/TIME: 07/24/2017 06:25 [facility] COMPARISON: CHEST SINGLE AP, July 22, 2017, 10:55. INDICATIONS : Short of breath. MEDICAL HISTORY : Carcinoma, pancreas. Chronic obstructive pulmonary disease.Gastroesophageal reflux disease. SURGICAL HISTORY : None. ENCOUNTER: Subsequent ACUITY: 1 week PAIN SCORE: Non-responsive. LOCATION: Bilateral chest FINDINGS: Increasing consolidation at the left base with loss of delineation of the entire left hemidiaphragm. No focal infiltrates in the right lung. The right hemidiaphragm is well delineated. Stable cardiom egaly. CONCLUSION: Increasing left lower lung consolidation. Stable cardiomegaly. Pedro Perez MD on July 24, 2017 at 6:38 Board Certified Radiologist. This report was verified electronically.
[2017-07-24] MEDS ORDERED: RESP: ALBUTEROL 2.5 MG/3 ML NEB (PRN) NEB ×2 (08:30→08:45)
--- NOTE | 2017-07-24 08:45 | HHI.CCPN ---
Subjective Remarks/Hospital Course The patient is as 76-year-old male with past medical history of CHF, COPD on 2liters home oxygen, gastroesophageal reflux disease, arthritis, who presented to [place] ED with 4-day history of poor appetite associated withintractable nausea, vomiting and diarrhea. The patient also reported abdominalcramps. He denied any blood or mucus in the stool. Most of the history was obtained from reviewing medical records as the patient is a poor historian. Hedenies any chest pain, shortness of breath, however he reports mild edema of his lower extremities. The patient denies any fever, chills, cough or any constitutional symptoms. Upon arrival to the ED he was hypertensive with systolic blood pressure 80s to 90s and afebrile. His laboratory data is significant for acute renal failure with a BUN of 59, creatinine of 3.90 and hyperkalemic with potassium level of 3.1. There is no evidence of any fever or leukocytosis. His lactic acid level measured at 1.4 and on repeat at midnight was 0.8. He was given 1 liter of normal saline in the ED and started on Levophed. Right femoral central line was placed by the ED physician. His labs this morning showed some improvements of his renal function with a creatinine 3.50 from 3.9. The patient is awake, alert on 2 liters oxygen with saturation of 94%. His current blood pressure is 105/53 with a MAP of 77 on Levophed. A chest x-ray in the ED showed cardiomegaly with pulmonary vascular engorgement. 07/19/17: Patient seen in follow up on septic shock, acute renal failure Patient states that he is doing well. Discussed his care with him, daughter and . Patient is doing much better. Workup is by EKG anything significant for infected source. Patient is still on Levophed at 10 mics. We'll continue to wean Levophed at this time. Patient remains afebrile. No acute events overnight. 07/20 No events overnight. Levophed is down to 6 mics. Afebrile. 07/21 No events overnight Off Levophed. Afebrile. 07/22 No events overnight. On 4L oxygen 07/23 Patient is lying in bed in NAD , on 4L oxygen. Subjective 07/24: Afebrile. Episodic hypotensive over night episode resolved. Denies chest pain or shortness of breath. Intermittently confused overnight currently stable. Central line has been removed. Joyner has been removed. Objective Vital Signs Date Time Temp Pulse Resp B/P (MAP) Pulse Ox O2 Delivery O2 Flow Rate FiO2 07/24/17 08:30 92 Nasal Cannula 4.00 07/24/17 08:00 98.5 07/24/17 07:01 96 26 111/67 (82) Intake and Output 07/24/17 07/24/17 07/25/17 08:00 16:00 00:00 Output Total 300 ml Balance -300 ml Result Diagram: 07/24/17 0420 07/24/17 0420 Other Results Microbiology Date/Time Source Procedure Growth Status 07/17/17 21:48 Blood Peripheral Aerobic Blood Culture - Final NO GROWTH IN 5 DAYS Complete 07/17/17 21:48 Blood Peripheral Anaerobic Blood Culture - Final NO GROWTH IN 5 DAYS Complete 07/18/17 09:40 Stool Stool Cryptosporidium Exam - Final NEGATIVE - NO CRYPTOSPORIDIUM ANTIGEN... Complete 07/18/17 09:40 Stool Stool Giardia Antigen (JESS) - Final NEGATIVE - NO GIARDIA ANTIGEN DETECTE... Complete Imaging Last Impressions Chest X-Ray 07/24/17 0000 Signed Impressions: Service Date/Time: Monday, July 24, 2017 06:25 - CONCLUSION: Increasing left lower lung consolidation. Stable cardiomegaly. Pedro Perez MD Head CT 07/23/17 0000 Signed Impressions: Service Date/Time: Sunday, July 23, 2017 17:00 - CONCLUSION: 1. No acute findings. Mild white matter ischemic changes. Kane Lundy MD Lower Extremity Ultrasound 07/22/17 0000 Signed Impressions: Service Date/Time: Saturday, July 22, 2017 12:00 - CONCLUSION: 1. Nonocclusive thrombus localized in the right common femoral vein. 2. No evidence of DVT in the lower extremity. Jadiel Hurst MD Renal Ultrasound 07/18/17 0000 Signed Impressions: Service Date/Time: July 08:31 - CONCLUSION: 1. Moderate hydronephrosis and cortical thinning bilaterally. Michael Jaquez MD Objective Remarks GENERAL: 76-year-old male, well-nourished, in no acute distress. On 4 L nasal cannula HEENT: Normocephalic/atraumatic. Pupils equal round react. MMM. Oropharynx erythema NECK: Supple without any masses. Trachea midline no deviation. No JVD, no bruits are appreciated CARDIAC: Tachycardic, RR. S1, S2. No S4. Without murmur LUNGS: Clear to auscultation bilaterally. No wheeze, rhonchi or rales. No use of accessory muscles on inspiration or expiration. ABDOMEN: Soft, nontender. Nondistended.. Bowel sounds heard in all 4 quadrants. No organomegaly or masses. Negative rebound, negative guarding EXTREMITIES: 2+ peripheral edema below the knees bilaterally NEUROLOGY: Mood and affect appear appropriate. Cranial nerves II through XII grossly intact. Moving all extremities, speech is clear Urinary Catheter: No Assessment to: Continue Vascular Central Line Catheter: No Assessment to: Continue A/P Assessment and Plan NEUROLOGY/PSYCH Monitor neuro status avoid any sedatives CT brain revealed no acute findings this admission PULMONARY Chronic respiratory failure/chronic obstructive pulmonary disease - 2 L dependent at home Continue O2 supplementation maintain O2 sats greater 92%. Currently in 4 L Currently budesonide/formoterol 160/4.5 2 puffs twice a day, tiotropium 18 mg daily and albuterol aerosols every 4 hours scheduled and every 2 hours when necessary dyspnea Incentive spirometry while awake CARDIOLOGY Siun tachycardia History CHF - chronic diastolic Moderate AR History of hypertension Mild pulmonary hypertension Place on Lopressor 12.5mg BID monitor HR and BP keep MAP>65mmHg Continues hydrocortisone 20 mg every 12 hourson since 07/18 and the reasons. Not a home medication. Previously on carvedilol 6.25 mill grams twice a day and enalapril 20 mg daily. Holding enalapril with acute kidney injury Echo showed EF 50-55%, moderate MR. Pulmonary arterial pressure 52.5 mmHg On furosemide 40 mg daily and potassium chloride 20 mEq daily at home GASTROENTEROLOGY Diarrhea illness Gastroesophageal reflux disease C. difficile cultures, stool cultures, rotavirus antigen are negative Continue healthy heart diet Continue pantoprazole 20 milligrams by mouth daily/patient is on omeprazole 10 mg daily at home Renal/GENITOURINARY Acute renal failure in the setting of chronic kidney disease stage IV Nephrology and urology are following Monitor renal function, I/O's, avoid nephrotoxins. Cr: 2.70 today, continue with furosemide 40mg IV daily for volume overload Renal ultrasound revealed moderate bilateral hydronephrosis. Plan for outpatient elective ureteral stent placements by Dr. Tinajero INFECTIOUS DISEASE s/p Sepsis/systemic inflammatory response syndrome Diarrhea illness Source of infection is not identified at this time Off abx, monitor for signs of infections ( Fever, WBC) BC 07/17: NGTD HEMATOLOGY Prostate cancer Normocytic anemia Nonocclusive thrombus right common femoral vein Previously on leuprolide and abiraterone dual therapy. Last PSA 155 Followed intermittently by hematology. 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 No evidence of DVT in the left lower extremity LINES Peripheral IVs Level 3 follow-up Sahil Baron MD Jul 24, 2017 08:45
[2017-07-24] MEDS: METOPROLOL TARTRATE 25 MG TAB PO SCH ×2 (09:00→21:00)
[2017-07-24] MEDS ORDERED: BUDESONIDE-FORMOTEROL 160/4.5 MCG INHALER INH SCH (09:00)
[2017-07-24] MEDS ORDERED: HEPARIN-D5W 25,000 U/250 ML 250 ML IV PRN (09:00)
[2017-07-24] MEDS ORDERED: GLYCERIN ADULT 2 GM SUPP RECTAL ONE (09:45)
[2017-07-24] MEDS: TIOTROPIUM INH SCH (09:45)
[2017-07-24] MEDS: PANTOPRAZOLE SOD 20 MG DELAYED RELEASE TAB PO SCH (10:50)
[2017-07-24] MEDS: ALLOPURINOL 100 MG TAB PO SCH (10:50)
[2017-07-24] MEDS: BUDESONIDE-FORMOTEROL 160/4.5 MCG INHALER INH SCH ×2 (10:50→21:02)
[2017-07-24] MEDS: CHOLECALCIFEROL (VIT D3) 1000 UNIT TAB PO SCH (10:50)
[2017-07-24] MEDS: ENOXAPARIN SODIUM 100 MG/ML SYRINGE SQ SCH (10:51)
[2017-07-24] MEDS: FUROSEMIDE 40 MG/4 ML VIAL IV PUSH SCH (10:51)
[2017-07-24] MEDS: HYDROCORTISONE 10 MG TAB PO SCH ×2 (10:53→17:57)
[2017-07-24] MEDS: RESP: ALBUTEROL 2.5 MG/3 ML NEB (SCH) NEB ×3 (12:00→19:30)
[2017-07-24] MEDS: LACTULOSE SYRUP 20 GM/30 ML CUP PO SCH ×3 (13:19→20:51)
--- NOTE | 2017-07-24 15:59 | HHI.NPPN ---
Subjective History of Present Illness 76-year-old male with past medical history of ischemic heart disease, congestive heart failure, prostate cancer, hypertension, COPD of arthritis, chronic kidney disease who was admitted with. Nausea or vomiting and diarrhea. I was called to see the patient because of elevated BUN and creatinine patient has elevated creatinine in the past and in January of last year his creatinine was 2.5. 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 Additional Remarks Patient is alert, breathing is better, now sitting on chair. Objective Data Data 07/24/17 07/25/17 19:00 07:00 Output Total 100 ml Balance -100 ml Output Urine Total 100 ml Vital Signs Date Time Temp Pulse Resp B/P (MAP) Pulse Ox O2 Delivery O2 Flow Rate FiO2 07/24/17 11:48 97.6 07/24/17 08:30 92 Nasal Cannula 4.00 07/24/17 08:00 98.5 07/24/17 07:01 96 26 111/67 (82) 94 07/24/17 06:01 98 25 109/63 (78) 92 07/24/17 06:00 100 07/24/17 05:29 96 16 96/50 (65) 93 07/24/17 05:05 100 21 77/43 (54) 93 07/24/17 05:03 98 19 69/42 (51) 92 07/24/17 05:01 98 23 77/47 (57) 93 07/24/17 04:01 98.6 102 22 99/57 (71) 90 07/24/17 04:00 102 07/24/17 03:01 94 17 94 07/24/17 02:01 94 07/24/17 01:01 96 11 91/61 (71) 95 07/24/17 00:01 110 07/24/17 00:00 97.7 07/23/17 23:01 110 15 95/56 (69) 94 07/23/17 22:02 116 20 113/55 (74) 90 07/23/17 22:02 116 07/23/17 21:01 118 07/23/17 21:01 118 19 103/59 (74) 92 07/23/17 20:28 94 Nasal Cannula 4.00 07/23/17 20:01 97.7 116 23 101/61 (74) 91 1/23/18 20:01 116 07/23/17 19:01 110 07/23/17 19:01 110 16 104/60 (75) 91 07/23/17 16:00 108 16 106/60 (75) 92 07/23/17 16:00 108 -: 07/24/17 0420 07/24/17 0420 Physical Exam General Appearance: No Acute Distress, Comfortable Eyes Eye Exam: Pupils Equal Throat Throat Exam: Oral Mucosa [place] & Moist Pulmonary Resp Exam: Breath Sounds Equal, No Distress, Crackles, Rhonchi, Decreased Bases Cardiology CV Exam: Regular, Normal Sinus Rhythm Gastrointestinal/Abdomen GI Exam: Soft, Non-Tender, Bowel Sounds Present, Distended Extremeties Extremities Exam: Moderate Edema, Pitting Edema, Dependent Edema Neurologic Neuro Exam: Alert, Awake Psychiatric Psych Exam: Appropriate Responses Assessment/Plan Assessment Summary: MICHAELLE/Acute Renal Failure, Anemia of CKD, Fluid/Volume Overload, CKD Stage IV Problem List: (1) COPD exacerbation ICD Codes: J44.1 - Chronic obstructive pulmonary disease with (acute) exacerbation Status: Acute (2) Hypoxia ICD Codes: R09.02 - Hypoxemia Status: Acute (3) HTN (hypertension) ICD Codes: I10 - Essential (primary) hypertension Status: Acute (4) Congestive heart failure ICD Codes: I50.9 - Heart failure, unspecified Status: Acute (5) Acute respiratory failure ICD Codes: J96.00 - Acute respiratory failure, unspecified whether with hypoxia or hypercapnia Status: Acute (6) Acute renal failure superimposed on stage 4 chronic kidney disease ICD Codes: N17.9 - Acute kidney failure, unspecified; N18.4 - Chronic kidney disease, stage 4 (severe) Status: Acute (7) Hypokalemia ICD Codes: E87.6 - Hypokalemia; N18.4 - Chronic kidney disease, stage 4 (severe ) Status: Acute Plan Patient has Chronic kidney disease, stage 4, now also develop MICHAELLE. Urine out put is adequate. BP is stable, afebrile. Has bilateral hydronephrosis. Urology following. Encourage oral intake, if eating better, can D/C IVF. Follow the urine out put and BMP. Avoid Nephrotoxins. Creatinine is now 2.7, Continue Lasix, edema is improving. Problem Qualifiers (1) HTN (hypertension): Qualified Codes: I10 - Essential (primary) hypertension (2) Acute renal failure superimposed on stage 4 chronic kidney disease: Qualified Codes: N17.9 - Acute kidney failure, unspecified; N18.4 - Chronic kidney disease, stage 4 (severe) Phuc Ferguson MD Jul 24, 2017 15:59
[2017-07-24] MEDS: POLYETHYLENE GLYCOL 17 GM PKG PO SCH (20:52)
[2017-07-25] VITALS (22 sets, daily range): BP systolic 83–119; BP diastolic 46–70; PULSE 86–112; RESP 10–27; TEMP 97.1–98.5; O2SAT 89–96
[2017-07-25] MEDS: RESP: ALBUTEROL 2.5 MG/3 ML NEB (SCH) NEB ×6 (00:06→21:05)
[2017-07-25 05:37] LABS: AUTOMATED NEUTROPHIL # 6.9 TH/MM3 (1.8-7.7); BASOPHIL % 0.1 % (0.0-2.0); EOSINOPHIL # 0.1 TH/MM3 (0-0.4); EOSINOPHIL % 0.9 % (0.0-4.0); HEMATOCRIT 31.7 % (39.0-51.0); HEMOGLOBIN 10.3 GM/DL (13.0-17.0); LYMPH % 8.4 % (9.0-44.0); LYMPHOCYTE # 0.7 TH/MM3 (1.0-4.8); MEAN CELL VOLUME 97.9 FL (80.0-100.0); MEAN CORPUSCULAR HEMOGLOBIN 31.7 PG (27.0-34.0); MEAN CORPUSCULAR HGB CONC 32.3 % (32.0-36.0); MEAN PLATELET VOLUME 8.5 FL (7.0-11.0); MONO % 6.3 % (0.0-8.0); MONOCYTE # 0.5 TH/MM3 (0-0.9); NEUT % 84.3 % (16.0-70.0); PLATELET COUNT 188 TH/MM3 (150-450); RED BLOOD COUNT 3.24 MIL/MM3 (4.50-5.90); RED CELL DISTRIBUTION WIDTH 16.3 % (11.6-17.2); WHITE BLOOD COUNT 8.2 TH/MM3 (4.0-11.0)
[2017-07-25 06:05] LABS: ALBUMIN 2.4 GM/DL (3.4-5.0); BICARBONATE 22.8 MEQ/L (21.0-32.0); CALCIUM 8.3 MG/DL (8.5-10.1); CREATININE 2.6 MG/DL (0.60-1.30); PHOSPHORUS 3.9 MG/DL (2.5-4.9)
[2017-07-25] MEDS: HYDROCORTISONE 10 MG TAB PO SCH ×2 (06:50→17:59)
--- NOTE | 2017-07-25 07:09 | HHI.CCPN ---
Subjective Remarks/Hospital Course The patient is as 76-year-old male with past medical history of CHF, COPD on 2liters home oxygen, gastroesophageal reflux disease, arthritis, who presented to [facility] ED with 4-day history of poor appetite associated withintractable nausea, vomiting and diarrhea. The patient also reported abdominalcramps. He denied any blood or mucus in the stool. Most of the history was obtained from reviewing medical records as the patient is a poor historian. Hedenies any chest pain, shortness of breath, however he reports mild edema of his lower extremities. The patient denies any fever, chills, cough or any constitutional symptoms. Upon arrival to the ED he was hypertensive with systolic blood pressure 80s to 90s and afebrile. His laboratory data is significant for acute renal failure with a BUN of 59, creatinine of 3.90 and hyperkalemic with potassium level of 3.1. There is no evidence of any fever or leukocytosis. His lactic acid level measured at 1.4 and on repeat at midnight was 0.8. He was given 1 liter of normal saline in the ED and started on Levophed. Right femoral central line was placed by the ED physician. His labs this morning showed some improvements of his renal function with a creatinine 3.50 from 3.9. The patient is awake, alert on 2 liters oxygen with saturation of 94%. His current blood pressure is 105/53 with a MAP of 77 on Levophed. A chest x-ray in the ED showed cardiomegaly with pulmonary vascular engorgement. 07/19/17: Patient seen in follow up on septic shock, acute renal failure Patient states that he is doing well. Discussed his care with him, daughter and . Patient is doing much better. Workup is by EKG anything significant for infected source. Patient is still on Levophed at 10 mics. We'll continue to wean Levophed at this time. Patient remains afebrile. No acute events overnight. 07/20 No events overnight. Levophed is down to 6 mics. Afebrile. 07/21 No events overnight Off Levophed. Afebrile. 07/22 No events overnight. On 4L oxygen 07/23 Patient is lying in bed in NAD , on 4L oxygen. 07/24: Afebrile. Episodic hypotensive over night episode resolved. Denies chest pain or shortness of breath. Intermittently confused overnight currently stable. Central line has been removed. Joyner has been removed. Subjective 07/25: Afebrile. Remains on 4 L nasal cannula. No episodes of hypotension overnight. Less confused last night. Plan for urology to place ureteral stents August 01 when the patient's family member at bedside. Objective Vital Signs Date Time Temp Pulse Resp B/P (MAP) Pulse Ox O2 Delivery O2 Flow Rate FiO2 07/25/17 06:00 109 07/25/17 04:00 98.5 18 119/70 (86) 96 07/24/17 19:30 Nasal Cannula 4.00 Intake and Output 07/25/17 07/25/17 07/26/17 08:00 16:00 00:00 Intake Total 240 ml Output Total 350 ml Balance -110 ml Result Diagram: 07/25/17 0447 07/25/17 0447 Other Results Microbiology Date/Time Source Procedure Growth Status 07/17/17 21:48 Blood Peripheral Aerobic Blood Culture - Final NO GROWTH IN 5 DAYS Complete 07/17/17 21:48 Blood Peripheral Anaerobic Blood Culture - Final NO GROWTH IN 5 DAYS Complete 07/18/17 09:40 Stool Stool Cryptosporidium Exam - Final NEGATIVE - NO CRYPTOSPORIDIUM ANTIGEN... Complete 07/18/17 09:40 Stool Stool Giardia Antigen (JESS) - Final NEGATIVE - NO GIARDIA ANTIGEN DETECTE... Complete Imaging Last Impressions Chest X-Ray 07/24/17 0000 Signed Impressions: Service Date/Time: Monday, July 24, 2017 06:25 - CONCLUSION: Increasing left lower lung consolidation. Stable cardiomegaly. Pedro Perez MD Head CT 07/23/17 0000 Signed Impressions: Service Date/Time: Sunday, July 23, 2017 17:00 - CONCLUSION: 1. No acute findings. Mild white matter ischemic changes. Kane Lundy MD Lower Extremity Ultrasound 07/22/17 0000 Signed Impressions: Service Date/Time: Saturday, July 22, 2017 12:00 - CONCLUSION: 1. Nonocclusive thrombus localized in the right common femoral vein. 2. No evidence of DVT in the lower extremity. Jadiel Hurst MD Renal Ultrasound 07/18/17 0000 Signed Impressions: Service Date/Time: July 08:31 - CONCLUSION: 1. Moderate hydronephrosis and cortical thinning bilaterally. Michael Jaquez MD Objective Remarks GENERAL: 76-year-old male, well-nourished, in no acute distress. On 4 L nasal cannula HEENT: Normocephalic/atraumatic. Pupils equal round react. MMM. Oropharynx erythema NECK: Supple without any masses. Trachea midline no deviation. No JVD, no bruits are appreciated CARDIAC: Tachycardic, RR. S1, S2. No S4. Without murmur LUNGS: Clear to auscultation bilaterally. No wheeze, rhonchi or rales. No use of accessory muscles on inspiration or expiration. ABDOMEN: Soft, nontender. Nondistended.. Bowel sounds heard in all 4 quadrants. No organomegaly or masses. Negative rebound, negative guarding EXTREMITIES: 2+ peripheral edema below the knees bilaterally NEUROLOGY: Mood and affect appear appropriate. Cranial nerves II through XII grossly intact. Moving all extremities, speech is clear Urinary Catheter: No Assessment to: Continue Vascular Central Line Catheter: No Assessment to: Continue A/P Assessment and Plan NEUROLOGY/PSYCH Monitor neuro status avoid any sedatives CT brain revealed no acute findings this admission PULMONARY Chronic respiratory failure/chronic obstructive pulmonary disease - 2 L dependent at home Continue O2 supplementation maintain O2 sats greater 92%. Currently in 4 L Currently budesonide/formoterol 160/4.5 2 puffs twice a day, tiotropium 18 mg daily and albuterol aerosols 2.5 mg every 4 hours scheduled and every 2 hours when necessary dyspnea Incentive spirometry while awake We'll consult Dr. Pappas/pulmonology for further recommendations CARDIOLOGY Siun tachycardia History CHF - chronic diastolic Moderate AR History of hypertension Mild pulmonary hypertension Place on Lopressor 12.5mg BID monitor HR and BP keep MAP>65mmHg Continues hydrocortisone 20 mg every 12 hours on since 07/18 per nephrology for possible subjective renal insufficiency Previously on carvedilol 6.25 mill grams twice a day and enalapril 20 mg daily. Holding enalapril with acute kidney injury Echo showed EF 50-55%, moderate MR. Pulmonary arterial pressure 52.5 mmHg On furosemide 40 mg daily and potassium chloride 20 mEq daily at home GASTROENTEROLOGY Diarrhea illness Gastroesophageal reflux disease C. difficile cultures, stool cultures, rotavirus antigen are negative Continue healthy heart diet Continue pantoprazole 20 milligrams by mouth daily/patient is on omeprazole 10 mg daily at home Renal/GENITOURINARY Acute renal failure in the setting of chronic kidney disease stage IV Hypokalemia Nephrology and urology are following Monitor renal function, I/O's, avoid nephrotoxins. Cr: 2.60 today, continue with furosemide 40mg IV daily for volume overload Renal ultrasound revealed moderate bilateral hydronephrosis. Plan for outpatient elective ureteral stent placements by Dr. Tinajero on August 01 30 mEq potassium chloride by mouth 1 now. Recheck in a.m. INFECTIOUS DISEASE s/p Sepsis/systemic inflammatory response syndrome Diarrhea illness Source of infection is not identified at this time Off abx, monitor for signs of infections ( Fever, WBC) BC 07/17: NGTD HEMATOLOGY Prostate cancer Normocytic anemia Nonocclusive thrombus right common femoral vein Previously on leuprolide and abiraterone dual therapy. Last PSA 155 Followed intermittently by hematology. 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 No evidence of DVT in the left lower extremity LINES Peripheral IVs Level 2 follow-up Patient is stable from a critical care medicine standpoint. Assign care to hospitalist in a.m. 07/26. Transfer out of ICU Sahil Baron MD Jul 25, 2017 07:09
[2017-07-25] MEDS ORDERED: POTASSIUM CHLORIDE 10 MEQ CONTROLLED RELEASE TAB PO ONE (07:15)
[2017-07-25] MEDS: DOCUSATE SODIUM 50 MG/SENNA 8.6 MG TAB PO SCH ×2 (09:00→21:00)
[2017-07-25] MEDS: POLYETHYLENE GLYCOL 17 GM PKG PO SCH ×2 (09:00→21:00)
[2017-07-25] MEDS: TIOTROPIUM INH SCH (09:00)
[2017-07-25] MEDS: LACTULOSE SYRUP 20 GM/30 ML CUP PO SCH ×3 (09:00→17:41)
[2017-07-25] MEDS: BUDESONIDE-FORMOTEROL 160/4.5 MCG INHALER INH SCH ×2 (09:12→21:10)
[2017-07-25] MEDS: CHOLECALCIFEROL (VIT D3) 1000 UNIT TAB PO SCH (09:12)
[2017-07-25] MEDS: PANTOPRAZOLE SOD 20 MG DELAYED RELEASE TAB PO SCH (09:13)
[2017-07-25] MEDS: METOPROLOL TARTRATE 25 MG TAB PO SCH ×2 (09:13→21:00)
[2017-07-25] MEDS: FUROSEMIDE 40 MG/4 ML VIAL IV PUSH SCH ×2 (09:13→17:58)
[2017-07-25] MEDS: ALLOPURINOL 100 MG TAB PO SCH (09:26)
[2017-07-25] MEDS: ENOXAPARIN SODIUM 100 MG/ML SYRINGE SQ SCH (10:00)
--- NOTE | 2017-07-25 15:13 | HHI.NPPN ---
Subjective History of Present Illness 76-year-old male with past medical history of ischemic heart disease, congestive heart failure, prostate cancer, hypertension, COPD of arthritis, chronic kidney disease who was admitted with. Nausea or vomiting and diarrhea. I was called to see the patient because of elevated BUN and creatinine patient has elevated creatinine in the past and in January of last year his creatinine was 2.5. The patient is not seeing any marriage counselor. Additional Remarks Patient is alert, breathing is better, sitting on chair, not in distress. Objective Data Data Vital Signs Date Time Temp Pulse Resp B/P (MAP) Pulse Ox O2 Delivery O2 Flow Rate FiO2 07/25/17 14:00 86 07/25/17 13:00 86 07/25/17 12:29 98 27 104/62 (76) 89 07/25/17 12:00 90 07/25/17 12:00 98.0 90 11 86/49 (61) 93 07/25/17 11:14 94 15 97/57 (70) 95 07/25/17 11:00 90 10 83/46 (58) 95 07/25/17 11:00 90 07/25/17 10:00 98 07/25/17 10:00 98 13 85/54 (64) 94 07/25/17 09:08 112 23 111/68 (82) 92 07/25/17 09:00 110 07/25/17 08:00 97.9 102 17 109/63 (78) 94 07/25/17 08:00 102 07/25/17 07:44 93 Nasal Cannula 4.00 07/25/17 07:03 106 17 112/68 (83) 95 07/25/17 07:00 104 07/25/17 06:00 109 07/25/17 04:00 98.5 108 18 119/70 (86) 96 07/25/17 04:00 108 07/25/17 02:00 111 07/25/17 00:00 108 07/25/17 00:00 98.5 108 18 89/55 (66) 94 07/24/17 20:00 118 07/24/17 20:00 97.6 119 24 105/63 (77) 95 07/24/17 19:30 93 Nasal Cannula 4.00 07/24/17 18:01 108 16 118/64 (82) 94 07/24/17 17:01 110 18 95/58 (70) 95 07/24/17 16:01 112 20 126/61 (82) 90 07/24/17 16:00 114 07/24/17 16:00 98.7 -: 07/25/17 0447 07/25/17 0447 Physical Exam General Appearance: No Acute Distress, Comfortable Eyes Eye Exam: Pupils Equal Throat Throat Exam: Oral Mucosa [place] & Moist Pulmonary Resp Exam: Breath Sounds Equal, No Distress, Crackles, Rhonchi, Decreased Bases Cardiology CV Exam: Regular, Normal Sinus Rhythm Gastrointestinal/Abdomen GI Exam: Soft, Non-Tender, Bowel Sounds Present, Distended Extremeties Extremities Exam: Moderate Edema, Pitting Edema, Dependent Edema Neurologic Neuro Exam: Alert, Awake Psychiatric Psych Exam: Appropriate Responses Assessment/Plan Assessment Summary: MICHAELLE/Acute Renal Failure, Anemia of CKD, Fluid/Volume Overload, CKD Stage IV Problem List: (1) COPD exacerbation ICD Codes: J44.1 - Chronic obstructive pulmonary disease with (acute) exacerbation Status: Acute (2) Hypoxia ICD Codes: R09.02 - Hypoxemia Status: Acute (3) HTN (hypertension) ICD Codes: I10 - Essential (primary) hypertension Status: Acute (4) Congestive heart failure ICD Codes: I50.9 - Heart failure, unspecified Status: Acute (5) Acute respiratory failure ICD Codes: J96.00 - Acute respiratory failure, unspecified whether with hypoxia or hypercapnia Status: Acute (6) Acute renal failure superimposed on stage 4 chronic kidney disease ICD Codes: N17.9 - Acute kidney failure, unspecified; N18.4 - Chronic kidney disease, stage 4 (severe) Status: Acute (7) Hypokalemia ICD Codes: E87.6 - Hypokalemia; N18.4 - Chronic kidney disease, stage 4 (severe ) Status: Acute Plan Patient has Chronic kidney disease, stage 4, now also develop MICHAELLE. Urine out put is adequate. BP is stable, afebrile. Has bilateral hydronephrosis. Urology following. Encourage oral intake, if eating better, can D/C IVF. Follow the urine out put and BMP. Avoid Nephrotoxins. Creatinine is stable at 2.6-2.7. Increase Lasix to BID, as edema not improving much. Problem Qualifiers (1) HTN (hypertension): Qualified Codes: I10 - Essential (primary) hypertension (2) Acute renal failure superimposed on stage 4 chronic kidney disease: Qualified Codes: N17.9 - Acute kidney failure, unspecified; N18.4 - Chronic kidney disease, stage 4 (severe) Phuc Ferguson MD Jul 25, 2017 15:13
--- NOTE | 2017-07-25 18:45 | PD.ONC.PN ---
Subjective Subjective Remarks Feeling better. No N/V/D. No CP/SOB. No bone pain. +LE edema. Objective Data Date Time Temp Pulse Resp B/P (MAP) Pulse Ox O2 Delivery O2 Flow Rate FiO2 07/25/17 17:53 90 07/25/17 14:00 86 07/25/17 13:00 86 07/25/17 12:29 98 27 104/62 (76) 89 07/25/17 12:00 90 07/25/17 12:00 98.0 90 11 86/49 (61) 93 07/25/17 11:14 94 15 97/57 (70) 95 07/25/17 11:00 90 10 83/46 (58) 95 07/25/17 11:00 90 07/25/17 10:00 98 07/25/17 10:00 98 13 85/54 (64) 94 07/25/17 09:08 112 23 111/68 (82) 92 07/25/17 09:00 110 07/25/17 08:00 97.9 102 17 109/63 (78) 94 07/25/17 08:00 102 07/25/17 07:44 93 Nasal Cannula 4.00 07/25/17 07:03 106 17 112/68 (83) 95 07/25/17 07:00 104 07/25/17 06:00 109 07/25/17 04:00 98.5 108 18 119/70 (86) 96 07/25/17 04:00 108 07/25/17 02:00 111 07/25/17 00:00 108 07/25/17 00:00 98.5 108 18 89/55 (66) 94 07/24/17 20:00 118 07/24/17 20:00 97.6 119 24 105/63 (77) 95 07/24/17 19:30 93 Nasal Cannula 4.00 07/25/17 07/25/17 07/25/17 07:00 15:00 23:00 Intake Total 240 ml Output Total 350 ml Balance -110 ml Result Diagram: 07/25/177 07/25/17446 Laboratory Results Laboratory Tests Test 07/25/17 04:47 White Blood Count 8.2 TH/MM3 Red Blood Count 3.24 MIL/MM3 Hemoglobin 10.3 GM/DL Hematocrit 31.7 % Mean Corpuscular Volume 97.9 FL Mean Corpuscular Hemoglobin 31.7 PG Mean Corpuscular Hemoglobin Concent 32.3 % Red Cell Distribution Width 16.3 % Platelet Count 188 TH/MM3 Mean Platelet Volume 8.5 FL Neutrophils (%) (Auto) 84.3 % Lymphocytes (%) (Auto) 8.4 % Monocytes (%) (Auto) 6.3 % Eosinophils (%) (Auto) 0.9 % Basophils (%) (Auto) 0.1 % Neutrophils # (Auto) 6.9 TH/MM3 Lymphocytes # (Auto) 0.7 TH/MM3 Monocytes # (Auto) 0.5 TH/MM3 Eosinophils # (Auto) 0.1 TH/MM3 Basophils # (Auto) 0.0 TH/MM3 CBC Comment DIFF FINAL Differential Comment Blood Urea Nitrogen 37 MG/DL Creatinine 2.60 MG/DL Random Glucose 88 MG/DL Albumin 2.4 GM/DL Calcium Level 8.3 MG/DL Phosphorus Level 3.9 MG/DL Sodium Level 144 MEQ/L Potassium Level 3.3 MEQ/L Chloride Level 110 MEQ/L Carbon Dioxide Level 22.8 MEQ/L Anion Gap 11 MEQ/L Estimat Glomerular Filtration Rate 24 ML/MIN Administered Medications Medications (Trade) Dose Ordered Sig/Hayden Route PRN Reason Start Time Stop Time Status Last Admin Dose Admin Sodium Chloride (NS Flush) 2 ml UNSCH PRN IV FLUSH FLUSH AFTER USING IV ACCESS 07/17/17 21:30 07/23/17 21:40 Miscellaneous Information Patient in critical care unit? Ass... [id number] .XX 07/18/17 01:45 07/18/17 01:45 Budesonide/ Formoterol Fumarate (Symbicort 160-4.5 Mcg Inh) 2 puff Q12HR INH 07/18/17 09:00 07/25/17 09:12 Ondansetron HCl (Zofran Inj) 4 mg Q8HR PRN IV PUSH N/V 07/18/17 16:00 07/18/17 17:34 Loperamide HCl (Imodium) 2 mg Q6H PRN PO diarrhea 07/18/17 16:00 07/24/17 21:02 Hydrocortisone (Cortef) 20 mg Q12H PO 07/18/17 19:00 07/25/17 17:59 Metoprolol Tartrate (Lopressor) 12.5 mg Q12HR PO 07/23/17 21:00 07/25/17 09:13 Allopurinol (Zyloprim) 100 mg DAILY PO 07/24/17 09:00 07/25/17 09:26 Cholecalciferol (Vitamin D3) 1,000 units DAILY PO 07/24/17 09:00 07/25/17 09:12 Albuterol Sulfate (Albuterol Neb) 2.5 mg Q4HR NEB NEB 07/24/17 12:00 07/25/17 15:32 Pantoprazole Sodium (Protonix) 20 mg DAILY PO 07/24/17 09:00 07/25/17 09:13 Enoxaparin Sodium (Lovenox Inj) 100 mg Q24H SQ 07/24/17 10:00 07/25/17 10:00 Furosemide (Lasix Inj) 40 mg DAILY@0900,1800 IV PUSH 07/25/17 18:00 07/25/17 17:58 Objective Remarks GENERAL: Well-nourished, well-developed patient. Eating dinner. SKIN: Warm and dry. HEAD: Normocephalic. EYES: No scleral icterus. No injection or drainage. NECK: Supple, trachea midline. No JVD. + Right supraclav LN stable. LYMPHATIC: No adenopathy. CARDIOVASCULAR: Regular rate and rhythm without murmurs. RESPIRATORY: Breath sounds equal bilaterally. No accessory muscle use. GASTROINTESTINAL: Abdomen soft, non-tender, nondistended. EXTREMITIES: No cyanosis, 2+ BLE edema. MUSCULOSKELETAL: Adequate muscle tone. NEUROLOGICAL: No obvious focal deficit. Awake, alert, and oriented x3. PSYCHIATRIC: Appropriate mood and affect; insight and judgment normal. 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 Reid is a 76-year-old man with a history of metastatic prostate carcinoma ; he is presently on combination systemic therapy with Lupron and Zytiga. His PSA level is 155, he presents to the hospital with complaints of increasing fatigue weakness and difficulty breathing. The patient was noted to be in acute on chronic renal failure, suspected congestive heart failure and hypotension. Plan 1. Prostate carcinoma: PSA levels presently at 155, previous levels not known. Without a trend it would be difficult to determine if the current treatment interventions are beneficial. He was started on Zytiga about 2 months ago. Zytiga was on hold when he presented with N/V/D. His GI symptoms have resolved. I talked to him about restarting Zytiga but he would like to go home and f/u with first before restarting. Continue hydrocortisone.. 2. Await ureteral stent placement. Problem Qualifiers (1) Acute renal failure superimposed on stage 4 chronic kidney disease: Qualified Codes: N17.9 - Acute kidney failure, unspecified; N18.4 - Chronic kidney disease, stage 4 (severe) Ryan Hess MD Jul 25, 2017 18:45
[2017-07-25] MEDS: methylPREDNISolone SOD SUCC 40 MG/1 ML VIAL IV PUSH SCH (21:26)
[2017-07-25] MEDS: SODIUM CHLORIDE 0.9% FLUSH 10 ML FLUSH IV FLUSH PRN (21:26)
[2017-07-25] MEDS: CEFEPIME INJ 1,000 MG in SODIUM CHLORIDE 0.9% INJ 100 ML IV SCH (21:26)
[2017-07-26] VITALS (11 sets, daily range): BP systolic 86–144; BP diastolic 57–83; PULSE 94–107; RESP 14–22; TEMP 96–98.5; O2SAT 91–100
[2017-07-26] MEDS: methylPREDNISolone SOD SUCC 40 MG/1 ML VIAL IV PUSH SCH ×2 (06:03→13:24)
[2017-07-26] MEDS: SODIUM CHLORIDE 0.9% FLUSH 10 ML FLUSH IV FLUSH PRN ×2 (06:03→22:15)
[2017-07-26 06:25] LABS: BASOPHIL # 0.2 TH/MM3 (0-0.2); BASOPHIL % 1.9 % (0.0-2.0); HEMATOCRIT 33.1 % (39.0-51.0); HEMOGLOBIN 10.4 GM/DL (13.0-17.0); LYMPH % 2.9 % (9.0-44.0); LYMPHOCYTE # 0.2 TH/MM3 (1.0-4.8); MEAN CORPUSCULAR HEMOGLOBIN 30.6 PG (27.0-34.0); MEAN CORPUSCULAR HGB CONC 31.6 % (32.0-36.0); MONO % 0.8 % (0.0-8.0); MONOCYTE # 0.1 TH/MM3 (0-0.9); NEUT % 94.4 % (16.0-70.0); PLATELET COUNT 236 TH/MM3 (150-450); RED BLOOD COUNT 3.41 MIL/MM3 (4.50-5.90); RED CELL DISTRIBUTION WIDTH 16.6 % (11.6-17.2); WHITE BLOOD COUNT 8.5 TH/MM3 (4.0-11.0)
--- NOTE | 2017-07-26 06:35 | RADRPT ---
EXAM DATE/TIME: 07/26/2017 06:14 [facility] COMPARISON: CHEST SINGLE AP, July 17, 2017, 21:30. CHEST PA & LAT, July 29, 2016, 15:29. INDICATIONS : Short of breath. MEDICAL HISTORY : Carcinoma, pancreas. Chronic obstructive pulmonary disease.Gastroesophageal reflux disease SURGICAL HISTORY : None. ENCOUNTER: Subsequent ACUITY: 1 week PAIN SCORE: 0/10 LOCATION: Bilateral chest FINDINGS: The heart size is normal. There is a mild left pleural effusion. There some prominence of the interst itium diffusely. CONCLUSION: 1. Mild left pleural effusion. 2. Proximal and interstitium which may represent some underlying interstitial disease/process versus mild edema. Dwight Wilson MD on July 26, 2017 at 6:32 Board Certified Radiologist. This report was verified electronically.
[2017-07-26 06:46] LABS: BICARBONATE 24.4 MEQ/L (21.0-32.0); CALCIUM 8.1 MG/DL (8.5-10.1)
[2017-07-26] MEDS: RESP: ALBUTEROL 2.5 MG/3 ML NEB (SCH) NEB ×4 (07:34→20:02)
[2017-07-26 07:42] LABS: CREATININE 2.5 MG/DL (0.60-1.30); PHOSPHORUS 4.1 MG/DL (2.5-4.9)
[2017-07-26] MEDS: CHOLECALCIFEROL (VIT D3) 1000 UNIT TAB PO SCH (09:22)
[2017-07-26] MEDS: PANTOPRAZOLE SOD 20 MG DELAYED RELEASE TAB PO SCH (09:22)
[2017-07-26] MEDS: BUDESONIDE-FORMOTEROL 160/4.5 MCG INHALER INH SCH ×2 (09:23→22:16)
[2017-07-26] MEDS: ALLOPURINOL 100 MG TAB PO SCH (09:23)
[2017-07-26] MEDS: ENOXAPARIN SODIUM 100 MG/ML SYRINGE SQ SCH (09:23)
[2017-07-26] MEDS: METOPROLOL TARTRATE 25 MG TAB PO SCH ×2 (09:23→22:14)
[2017-07-26] MEDS: TIOTROPIUM INH SCH (09:23)
[2017-07-26] MEDS: POLYETHYLENE GLYCOL 17 GM PKG PO SCH ×2 (09:26→21:00)
[2017-07-26] MEDS: DOCUSATE SODIUM 50 MG/SENNA 8.6 MG TAB PO SCH ×2 (09:26→21:00)
[2017-07-26] MEDS: CEFEPIME INJ 1,000 MG in SODIUM CHLORIDE 0.9% INJ 100 ML IV SCH ×2 (09:26→22:13)
[2017-07-26] MEDS: FUROSEMIDE 40 MG/4 ML VIAL IV PUSH SCH ×2 (09:28→18:54)
--- NOTE | 2017-07-26 10:48 | HHI.FF ---
Face to Face Verification Diagnosis: (1) COPD exacerbation (2) Renal failure (3) Acute respiratory failure Physical Therapy Order: Evaluate and Treat Occupational Therapy Order: Evaluate and Treat Home Health Nursing Order: Medical education Nursing assessment with vital signs I have seen patient Holden Reid on 07/26/17. My clinical findings support the need for the requested home health care services because: Limited ability to care for self I certify that my clinical findings support that this patient is homebound because: Unsafe to leave home unassisted Michael Mora MD Jul 26, 2017 10:48
--- NOTE | 2017-07-26 11:01 | MB ---
cc: CHINO HARDY DATE OF CONSULTATION 07/25/2017 REASON FOR CONSULTATION COPD and CHF. HISTORY OF PRESENT ILLNESS This is a 76-year-old man with a history of severe COPD, history of CHF and gastroesophageal reflux who has been on home oxygen at 2 liters. This patient apparently was having severe nausea, vomiting and diarrhea over the several days. He became quite dehydrated and had severe loss of appetite and was brought to the emergency room and subsequently admitted. The patient had some significant leg edema as well. Denied fevers or chills. The patient was seen in the emergency room and was hypotensive and thus was admitted with possible sepsis and dehydration and acute kidney injury. After fluid resuscitation and antibiotic therapy, the patient's condition has improved. The patient is now on two liters of oxygen maintaining a saturation of 96% and is feeling much better. He was on pressors initially, but these have been discontinued. The patient has some cough, but does not bring up much sputum and denies any chest pain. PAST HISTORY Has included history of: 1. 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 He has had Lupron injections and the patient also has had PET scans and CT scan over the past year which showed extensive pelvic and retroperitoneal as well as mediastinal adenopathy. 2. He has had a history of COPD with emphysema. 3. History of CHF and ASHD and gastroesophageal reflux. PAST SURGICAL HISTORY Surgery includes tonsillectomy. HABITS The patient does not smoke. He lives with his . He drinks alcohol rarely. FAMILY HISTORY Significant for cancer. ALLERGIES No drug allergies were listed. MED LIST The med list was reviewed from the chart. SYSTEM REVIEW The patient has weakness, dizziness, leg swelling and joint pains. He has reflux symptoms and urinary frequency and complaints of lower abdominal pain. Denies any skin rash. He has some depression with anxiety. PHYSICAL EXAMINATION This is a moderately obese elderly man who is alert and pale and mildly dyspneic at rest. VITAL SIGNS: Blood pressure 133/80, pulse is 75, respirations 22, temperature 98.2. HEENT: Head normocephalic. Pupils reactive and equal. Tongue dry. Throat is injected. Nasal mucosae edematous. NECK: Supple. No bruits or thyroid enlargement or lymphadenopathy. CHEST: Decreased breath sounds at the bases with wheezes bilaterally and occasional crackles at the lung bases. HEART: The heart sounds are regular, S1 and S2. There is no murmur or S3. ABDOMEN: Obese and protuberant without masses, organomegaly, or tenderness. Bowel sounds active. EXTREMITIES: Mild varicosities, edema 2+. Decreased peripheral pulses. Reflexes are 1+ with no gross motor deficits. NEUROLOGIC: Cranial nerves grossly intact. RECTAL: Exam is deferred. SKIN: No lesions. IMPRESSION 1. COPD with chronic bronchitis and emphysema. 2. Acute kidney injury and dehydration. 3. History of metastatic prostate cancer with extensive lymphadenopathy. 4. History of CHF. 5. Anemia of chronic disease. PLAN The patient will be maintained on O2 at 2 liters nebulized DuoNeb solution added q.i.d. and p.r.n. Solu-Medrol 40 mg b.i.d. was added. The patient will be continued on anticoagulants. He will also be placed on Symbicort 160 x 4.5 mcg two puffs twice daily and a BMP, CBC to be repeated and a bedside pulmonary function study will be done. Thank you Dr. Mai for this consultation. MD RADHA Rodrigez/MARK /12:13 AM /10:40 AM
--- NOTE | 2017-07-26 13:05 | HHI.NPPN ---
Subjective History of Present Illness 76-year-old male with past medical history of ischemic heart disease, congestive heart failure, prostate cancer, hypertension, COPD of arthritis, chronic kidney disease who was admitted with. Nausea or vomiting and diarrhea. I was called to see the patient because of elevated BUN and creatinine patient has elevated creatinine in the past and in January of last year his creatinine was 2.5. 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 Additional Remarks Patient is alert, breathing is better, started eating ,clinically same. Objective Data Data Vital Signs Date Time Temp Pulse Resp B/P (MAP) Pulse Ox O2 Delivery O2 Flow Rate FiO2 07/26/17 09:42 97.0 94 16 133/67 (89) 100 07/26/17 07:34 98 Nasal Cannula 3.00 07/26/17 04:00 98.5 101 20 104/64 (77) 94 07/26/17 00:00 97.2 105 20 107/57 (74) 93 07/25/17 23:00 89 07/25/17 20:30 92 Nasal Cannula 4.00 07/25/17 20:00 97.6 102 20 103/59 (74) 95 07/25/17 17:53 90 07/25/17 16:00 97.1 94 22 103/55 (71) 94 07/25/17 14:00 86 -: 07/26/17 0600 07/26/17 0600 Physical Exam General Appearance: No Acute Distress, Comfortable Eyes Eye Exam: Pupils Equal Throat Throat Exam: Oral Mucosa [place] & Moist Pulmonary Resp Exam: Breath Sounds Equal, No Distress, Crackles, Rhonchi, Decreased Bases Cardiology CV Exam: Regular, Normal Sinus Rhythm Gastrointestinal/Abdomen GI Exam: Soft, Non-Tender, Bowel Sounds Present, Distended Extremeties Extremities Exam: Moderate Edema, Pitting Edema, Dependent Edema Neurologic Neuro Exam: Alert, Awake Psychiatric Psych Exam: Appropriate Responses Assessment/Plan Assessment Summary: MICHAELLE/Acute Renal Failure, Anemia of CKD, Fluid/Volume Overload, CKD Stage IV Problem List: (1) COPD exacerbation ICD Codes: J44.1 - Chronic obstructive pulmonary disease with (acute) exacerbation Status: Acute (2) Hypoxia ICD Codes: R09.02 - Hypoxemia Status: Acute (3) HTN (hypertension) ICD Codes: I10 - Essential (primary) hypertension Status: Acute (4) Congestive heart failure ICD Codes: I50.9 - Heart failure, unspecified Status: Acute (5) Acute respiratory failure ICD Codes: J96.00 - Acute respiratory failure, unspecified whether with hypoxia or hypercapnia Status: Acute (6) Acute renal failure superimposed on stage 4 chronic kidney disease ICD Codes: N17.9 - Acute kidney failure, unspecified; N18.4 - Chronic kidney disease, stage 4 (severe) Status: Acute (7) Hypokalemia ICD Codes: E87.6 - Hypokalemia; N18.4 - Chronic kidney disease, stage 4 (severe ) Status: Acute Plan Patient has Chronic kidney disease, stage 4, now also develop MICHAELLE. Urine out put is adequate. BP is stable, afebrile. Has bilateral hydronephrosis. Urology following. Encourage oral intake, if eating better, can D/C IVF. Follow the urine out put and BMP. Avoid Nephrotoxins. Creatinine is now 2.5, stable. Continue Lasix. Problem Qualifiers (1) HTN (hypertension): Qualified Codes: I10 - Essential (primary) hypertension (2) Acute renal failure superimposed on stage 4 chronic kidney disease: Qualified Codes: N17.9 - Acute kidney failure, unspecified; N18.4 - Chronic kidney disease, stage 4 (severe) Phuc Ferguson MD Jul 26, 2017 13:05
[2017-07-26] MEDS ORDERED: TORSEMIDE 20 MG TAB PO ONE (14:00)
--- NOTE | 2017-07-26 18:24 | HHI.PR ---
Subjective Remarks RN denies any deterioration since last night. Patient so says he feels fine. He is wanting to go home. Tolerating by mouth intake. Objective Vital Signs Date Time Temp Pulse Resp B/P (MAP) Pulse Ox O2 Delivery O2 Flow Rate FiO2 07/26/17 17:15 96.7 94 16 86/64 (71) 93 07/26/17 15:00 95 07/26/17 14:07 96.0 97 16 98/64 (75) 93 07/26/17 09:42 97.0 94 16 133/67 (89) 100 07/26/17 08:00 107 07/26/17 07:34 98 Nasal Cannula 3.00 07/26/17 04:00 98.5 101 20 104/64 (77) 94 07/26/17 00:00 97.2 105 20 107/57 (74) 93 07/25/17 23:00 89 07/25/17 20:30 92 Nasal Cannula 4.00 07/25/17 20:00 97.6 102 20 103/59 (74) 95 I/O 07/25/17 07/25/17 07/25/17 07/26/17 07/26/17 07/26/17 07:00 15:00 23:00 07:00 15:00 23:00 Intake Total 240 ml 240 ml 100 ml 800 ml Output Total 350 ml 600 ml 650 ml Balance -110 ml -360 ml 100 ml 150 ml Intake Oral 240 ml 240 ml 800 ml IV Total 100 ml Output Urine Total 350 ml 600 ml 650 ml # Voids 1 5 # Bowel Movements 2 0 Result Diagram: 07/26/17 0600 07/26/17 0600 Objective Remarks Lungs are clear bilaterally, SOB Has moderate bilateral lower extreme edema that is nonpitting A/P Assessment and Plan Sepsis component resolved - cefepime, bc's neg MICHAELLE - 2/2 septic shock, improving but suspect some residual perm damage, nephro following LE edema - lasix IV BID, given one time dose of torsemide, ordering metolazone, may now be chronic, anticipate DC in AM chronic resp failure - on 2 L at home baseline Michael Mora MD Jul 26, 2017 18:24
[2017-07-26] MEDS ORDERED: METOLAZONE 5 MG TAB PO ONE (19:00)
[2017-07-26] MEDS ORDERED: POTASSIUM CHLORIDE 10 MEQ CONTROLLED RELEASE TAB PO ONE (19:00)
--- NOTE | 2017-07-26 20:44 | HHI.PR ---
Subjective Remarks He is better. On O2 2 L. Good output. Up in a chair.On cefipime . Objective Vital Signs Date Time Temp Pulse Resp B/P (MAP) Pulse Ox O2 Delivery O2 Flow Rate FiO2 07/26/17 20:04 93 Nasal Cannula 3.00 07/26/17 17:15 96.7 94 16 86/64 (71) 93 07/26/17 15:00 95 07/26/17 14:07 96.0 97 16 98/64 (75) 93 07/26/17 09:42 97.0 94 16 133/67 (89) 100 07/26/17 08:00 107 07/26/17 07:34 98 Nasal Cannula 3.00 07/26/17 04:00 98.5 101 20 104/64 (77) 94 07/26/17 00:00 97.2 105 20 107/57 (74) 93 07/25/17 23:00 89 I/O 07/25/17 07/25/17 07/25/17 07/26/17 07/26/17 07/26/17 07:00 15:00 23:00 07:00 15:00 23:00 Intake Total 240 ml 240 ml 100 ml 800 ml Output Total 350 ml 600 ml 650 ml Balance -110 ml -360 ml 100 ml 150 ml Intake Oral 240 ml 240 ml 800 ml IV Total 100 ml Output Urine Total 350 ml 600 ml 650 ml # Voids 1 5 # Bowel Movements 2 0 Result Diagram: 07/26/17 0600 07/26/17 0600 Objective Remarks This is a moderately obese elderly man who is alert and pale and mildly dyspneic at rest. HEENT: Head normocephalic. Pupils reactive and equal. Tongue dry. Throat is clear. Nasal mucosae edematous. NECK: Supple. No bruits or thyroid enlargement or lymphadenopathy. CHEST: Decreased breath sounds at the bases with wheezes bilaterally and occasional crackles at the lung bases. HEART: The heart sounds are regular, S1 and S2. There is no murmur or S3. ABDOMEN: Obese and protuberant without masses, organomegaly, or tenderness. Bowel sounds active. EXTREMITIES: Mild varicosities, edema 2+. Decreased peripheral pulses. Reflexes are 1+ with no gross motor deficits. NEUROLOGIC: Cranial nerves grossly intact. RECTAL: Exam is deferred. SKIN: No lesions. Assessment and Plan Assessment and Plan IMPRESSION 1. COPD with chronic bronchitis and emphysema. 2. Acute kidney injury and dehydration. 3. History of metastatic prostate cancer with extensive lymphadenopathy. 4. History of CHF. 5. Anemia of chronic disease Plan : 1. O2 at 2 L. 2. Continue Diuretic daily. 3. Nebs qid , duoneb. 4. Ambulate with help 5. Continue antibiotics as ordered 6. D/C solumedrol 7. Add Prednisone 20 mg BID and taper Godfrey Pappas MD Jul 26, 2017 20:44
[2017-07-26] MEDS: predniSONE 20 MG TAB PO SCH (22:13)
[2017-07-27] VITALS: BP 105/55; PULSE 87; RESP 16; TEMP 97.8; O2SAT 90
[2017-07-27 04:00] VITALS: BP 99/59; PULSE 89; RESP 16; TEMP 98.7; O2SAT 91
[2017-07-27] MEDS: RESP: ALBUTEROL 2.5 MG/3 ML NEB (SCH) NEB ×2 (07:25→11:50)
[2017-07-27 07:27] VITALS: O2SAT 93
[2017-07-27 08:00] VITALS: BP 119/52; PULSE 91; RESP 18; TEMP 96.3; O2SAT 92
[2017-07-27 08:15] VITALS: PULSE 81
[2017-07-27] MEDS: TIOTROPIUM INH SCH (08:26)
[2017-07-27] MEDS: BUDESONIDE-FORMOTEROL 160/4.5 MCG INHALER INH SCH (08:29)
[2017-07-27] MEDS: predniSONE 20 MG TAB PO SCH (08:30)
[2017-07-27] MEDS: PANTOPRAZOLE SOD 20 MG DELAYED RELEASE TAB PO SCH (08:30)
[2017-07-27] MEDS: METOPROLOL TARTRATE 25 MG TAB PO SCH (08:30)
[2017-07-27] MEDS: CHOLECALCIFEROL (VIT D3) 1000 UNIT TAB PO SCH (08:30)
[2017-07-27] MEDS: ALLOPURINOL 100 MG TAB PO SCH (08:30)
[2017-07-27] MEDS: CEFEPIME INJ 1,000 MG in SODIUM CHLORIDE 0.9% INJ 100 ML IV SCH (08:31)
[2017-07-27] MEDS: ENOXAPARIN SODIUM 100 MG/ML SYRINGE SQ SCH (08:31)
[2017-07-27] MEDS: FUROSEMIDE 40 MG/4 ML VIAL IV PUSH SCH (08:34)
[2017-07-27] MEDS: DOCUSATE SODIUM 50 MG/SENNA 8.6 MG TAB PO SCH (08:34)
[2017-07-27] MEDS: POLYETHYLENE GLYCOL 17 GM PKG PO SCH (08:34)
[2017-07-27 12:00] VITALS: BP 105/57; PULSE 67; RESP 18; TEMP 96.3; O2SAT 95
[2017-07-27] MEDS ORDERED: FURO1TAB60 PO (13:21)
[2017-07-27] MEDS ORDERED: LEVO750T3 PO (13:21)
[2017-07-27] MEDS ORDERED: POTA20TA5 PO (13:22)
[2017-07-27] MEDS ORDERED: PRED20 PO (13:29)
--- NOTE | 2017-07-27 13:36 | HHI.DS ---
Discharge Summary Admission Date Jul 18, 2017 at 00:00 Discharge Date: Jul 27, 2017 Admitting Diagnosis Severe dehydration. Gastroenteritis. Hypokalemia. Hyponatremia. 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 ICD Code: C61 - Malignant neoplasm of prostate; C77.1 - Secondary and unspecified malignant neoplasm of intrathoracic lymph nodes (2) Severe dehydration ICD Code: E86.0 - Dehydration; N18.4 - Chronic kidney disease, stage 4 (severe) Status: Resolved (3) COPD exacerbation ICD Code: J44.1 - Chronic obstructive pulmonary disease with (acute) exacerbation Status: Acute (4) Hypoxia ICD Code: R09.02 - Hypoxemia Status: Acute (5) Acute renal failure superimposed on stage 4 chronic kidney disease ICD Code: N17.9 - Acute kidney failure, unspecified; N18.4 - Chronic kidney disease, stage 4 (severe) Status: Acute Procedures none Brief History - From Admission The patient is as 76-year-old male with past medical history of CHF, COPD on 2 liters home oxygen, gastroesophageal reflux disease, arthritis, who presented to [place] ED with 4-day history of poor appetite associated with intractable nausea, vomiting and diarrhea. The patient also reported abdominal cramps. He denied any blood or mucus in the stool. Most of the history was obtained from reviewing medical records as the patient is a poor historian. He denies any chest pain, shortness of breath, however he reports mild edema of his lower extremities. The patient denies any fever, chills, cough or any constitutional symptoms. Upon arrival to the ED he was hypertensive with systolic blood pressure 80s to 90s and afebrile. His laboratory data is significant for acute renal failure with a BUN of 59, creatinine of 3.90 and hyperkalemic with potassium level of 3.1. There is no evidence of any fever or leukocytosis. His lactic acid level measured at 1.4 and on repeat at midnight was 0.8. He was given 1 liter of normal saline in the ED and started on Levophed. Right femoral central line was placed by the ED physician. His labs this morning showed some improvements of his renal function with a creatinine 3.50 from 3.9. The patient is awake, alert on 2 liters oxygen with saturation of 94%. His current blood pressure is 105/53 with a MAP of 77 on Levophed. A chest x-ray in the ED showed cardiomegaly with pulmonary vascular engorgement. CBC/BMP: 07/26/17 0600 07/26/17 0600 Significant Findings Laboratory Tests Test 07/25/17 04:47 07/26/17 06:00 Red Blood Count 3.24 MIL/MM3 (4.50-5.90) 3.41 MIL/MM3 (4.50-5.90) Hemoglobin 10.3 GM/DL (13.0-17.0) 10.4 GM/DL (13.0-17.0) Hematocrit 31.7 % (39.0-51.0) 33.1 % (39.0-51.0) Neutrophils (%) (Auto) 84.3 % (16.0-70.0) 94.4 % (16.0-70.0) Lymphocytes (%) (Auto) 8.4 % (9.0-44.0) 2.9 % (9.0-44.0) Lymphocytes # (Auto) 0.7 TH/MM3 (1.0-4.8) 0.2 TH/MM3 (1.0-4.8) Blood Urea Nitrogen 37 MG/DL (7-18) 39 MG/DL (7-18) Creatinine 2.60 MG/DL (0.60-1.30) 2.50 MG/DL (0.60-1.30) Albumin 2.4 GM/DL (3.4-5.0) Calcium Level 8.3 MG/DL (8.5-10.1) 8.1 MG/DL (8.5-10.1) Potassium Level 3.3 MEQ/L (3.5-5.1) Chloride Level 110 MEQ/L (98-107) Estimat Glomerular Filtration Rate 24 ML/MIN (>89) 25 ML/MIN (>89) Mean Corpuscular Hemoglobin Concent 31.6 % (32.0-36.0) Neutrophils # (Auto) 8.0 TH/MM3 (1.8-7.7) Random Glucose 118 MG/DL (74-106) Imaging Last Impressions Chest X-Ray 07/26/17 0600 Signed Impressions: Service Date/Time: Wednesday, July 26, 2017 06:14 - CONCLUSION: 1. Mild left pleural effusion. 2. Proximal and interstitium which may represent some underlying interstitial disease/process versus mild edema. Dwight Wilson MD Head CT 07/23/17 0000 Signed Impressions: Service Date/Time: Sunday, July 23, 2017 17:00 - CONCLUSION: 1. No acute findings. Mild white matter ischemic changes. Kane Lundy MD Lower Extremity Ultrasound 07/22/17 0000 Signed Impressions: Service Date/Time: Saturday, July 22, 2017 12:00 - CONCLUSION: 1. Nonocclusive thrombus localized in the right common femoral vein. 2. No evidence of DVT in the lower extremity. Jadiel Hurst MD Renal Ultrasound 07/18/17 0000 Signed Impressions: Service Date/Time: July 08:31 - CONCLUSION: 1. Moderate hydronephrosis and cortical thinning bilaterally. Michael Jaquez MD PE at Discharge Lungs are clear Unlabored breathing Moderate lower extremity edema, about the same as yesterday, sitting up in chair. Pt update on day of discharge Daughter states that pt's edema had improved by morning in bed, then he had some swelling after sitting up in chair for a while. Hospital Course Upon arrival to the ED he was hypertensive with systolic blood pressure 80s to 90s and afebrile. His laboratory data is significant for acute renal failure with a BUN of 59, creatinine of 3.90 and hyperkalemic with potassium level of 3.1. There is no evidence of any fever or leukocytosis. His lactic acid level measured at 1.4 and on repeat at midnight was 0.8. He was given 1 liter of normal saline in the ED and started on Levophed. Right femoral central line was placed by the ED physician. His labs this morning showed some improvements of his renal function with a creatinine 3.50 from 3.9. The patient is awake, alert on 2 liters oxygen with saturation of 94%. His current blood pressure is 105/53 with a MAP of 77 on Levophed. A chest x-ray in the ED showed cardiomegaly with pulmonary vascular engorgement. Pt was eventually titrated off of levophed and also down to his home oxygen rate of 2 L over 5 days. Pt had been seen by pulmonology, urology, and nephrology while inpatient. He was successfully transition to the medical surgical floor where he remained in stable condition. His lower extremity edema showed minimal improvement but appear to hit a plateau given the limitation of using diuretics with his acute on chronic kidney injury. His creatinine around the time of discharge was 2.5. Nephrology recommended 40-45 ounces daily in terms of fluid restriction for the patient. Also recommended Lasix twice a day dosing and close follow-up. Patient has met maximum benefit from hospitalization and is clinically stable for discharge.He is to maintain his urology f/u for stent placement. Pt Condition on Discharge: Stable Discharge Disposition: Disch w/ Home Health Serv Discharge Time: > 30 minutes Discharge Instructions DIET: Follow Instructions for: Renal Failure Diet, Low Sodium Diet Fluid Restrictions: 1300 Activities you can perform: Weight Bearing as Cristal, See Additionl Instruction Other Activity Instructions: if using home devices as before admission, continue usage as such Follow up Referrals: Nephrology - 3-5 Days with Phuc Ferguson MD PCP Follow-up - 1 Week Pulmonology - 2 Weeks Urology New Medications: Levofloxacin (Levofloxacin) 750 Mg Tablet 750 MG PO Q48H for Infection, #5 TAB 0 Refills Prednisone (Prednisone) 20 Mg Tab 20 MG PO DIRECTED for COPD, #16 TAB 0 Refills Take 40 MG daily x 4 days, then 20 MG x 4 days, then 10 MG daily x 4 days. Changed Medications: Furosemide (Lasix) 40 Mg Tab 40 MG PO BID for edema, #60 TAB 0 Refills (Changed from: DAILY; 30) Continued Medications: Abiraterone (Zytiga) 500 Mg Tablet 500 MG PO BID for Chemotherapy Management, TAB 0 Refills Albuterol 18 GM Inh (Ventolin Hfa 18 GM Inh) 90 Mcg/Act Aer 2 PUFF INH Q4H PRN for SHORTNESS OF BREATH, #1 INHALER 0 Refills Allopurinol (Allopurinol) 100 Mg Tab 100 MG PO DAILY for Gout, #30 TAB 0 Refills Budesonide-Formoterol Inh (Symbicort Inh) 160-4.5 Mcg/Act Aero 2 PUFF INH Q12HR for copd, #1 INHALER Carvedilol (Coreg) 6.25 Mg Tab 6.25 MG PO Q12HR for chf, #30 TAB Cholecalciferol (Vitamin D3) 1,000 Unit Tab 1000 UNITS PO DAILY for Nutritional Supplement, #1 BOTTLE 0 Refills Enalapril (Enalapril) 20 Mg Tab 20 MG PO DAILY, #30 TAB 0 Refills Ipratropium-Albuterol Neb (Duoneb) 0.5-2.5 Mg/3 Ml Neb 1 NEBULE INH Q4HR NEB for Breathing Treatment, #180 NEBULE 0 Refills Omeprazole (Omeprazole) 10 Mg Cap 10 MG PO DAILY, #30 CAP 0 Refills Ondansetron Odt (Zofran Odt) 4 Mg Tab 4 MG SL Q6HR PRN for Nausea/Vomiting, #10 TAB 0 Refills Potassium Chloride Microencaps (Potassium Chloride Microencaps) 20 Meq Tab 20 MEQ PO DAILY for Electrolyte Replacement, #60 TAB (This prescription has been renewed) Tiotropium Inh (Spiriva Respimat Inh) 1.25 Mcg/Act Aero 2 PUFF INH DAILY for Asthma Management, #1 INHALER 0 Refills 1.25 mcg = 1 inhalation Michael Mora MD Jul 27, 2017 13:36
== END 2017-07-27 14:21 | disposition home health service (06) | DRG 683 ==
LOC: PHED 20:38 → PHEDA 07-18 → PHICU 07-18 01:17 → PH3A 07-25 16:05
PROVIDERS: ADMIT Internal Medicine Critical Care Medicine; ATTEND Hospitalist
PROC: 06HM33Z Insertion of Infusion Device into Right Femoral Vein, Percutaneous Approach (ICD-10-PCS; principal; 2017-07-17)
DX: N17.9 Acute kidney failure, unspecified (principal); C77.2 Secondary and unspecified malignant neoplasm of intra-abdominal lymph nodes; J96.11 Chronic respiratory failure with hypoxia; I13.0 Hypertensive heart and chronic kidney disease with heart failure and stage 1 through stage 4 chronic kidney disease, or unspecified chronic kidney disease; R65.10 Systemic inflammatory response syndrome (SIRS) of non-infectious origin without acute organ dysfunction; I82.411 Acute embolism and thrombosis of right femoral vein; I95.9 Hypotension, unspecified; I50.32 Chronic diastolic (congestive) heart failure; E87.1 Hypo-osmolality and hyponatremia; E86.0 Dehydration; N18.4 Chronic kidney disease, stage 4 (severe); N13.30 Unspecified hydronephrosis; I27.20 Pulmonary hypertension, unspecified; Z99.81 Dependence on supplemental oxygen; E87.6 Hypokalemia; K21.9 Gastro-esophageal reflux disease without esophagitis; C61 Malignant neoplasm of prostate; R53.1 Weakness; R19.7 Diarrhea, unspecified; D63.1 Anemia in chronic kidney disease; I25.10 Atherosclerotic heart disease of native coronary artery without angina pectoris; R60.0 Localized edema; J44.9 Chronic obstructive pulmonary disease, unspecified; M19.90 Unspecified osteoarthritis, unspecified site; R59.0 Localized enlarged lymph nodes; R11.2 Nausea with vomiting, unspecified; E88.3 Tumor lysis syndrome; Z87.891 Personal history of nicotine dependence
CPT/HCPCS: 36556; 36600; 51702; 70450; 71045; 71046; 76775; 80048; 80053; 80069; 81001; 82550; 82805; 83605; 83690; 83735; 83880; 84100; 84132; 84153; 84484; 85025; 85610; 85730; 87040; 87328; 87329; 87425; 87493; 87506; 87641; 93005; 93306; 93970; 94150; 94640; 94664; 96361; 96374; J0692; J1644; J1650; J1940; J2405; J2920; J3480; J7030; J7040; J7042; J7512; J7613; P9047